=== PATIENT | male | born 1960 | race Caucasian/White ===

== ENCOUNTER 2017-05-12 20:38 | Inpatient (IN) | payer OTHER, SELFPAY ==
[2017-05-12] VITALS (12 sets, daily range): BP systolic 100–160; BP diastolic 66–93; PULSE 67–84; RESP 16–21; TEMP 36.4–36.9; O2SAT 97–100; BMI 31.6
--- NOTE | 2017-05-12 20:41 | NURSING ---
NO OLD EKG'S IN MUSE
--- NOTE | 2017-05-12 20:51 | EKG12_ITS ---
Test Reason : REPEAT Blood Pressure : / mmHG Vent. Rate : 072 BPM Atrial Rate : 072 BPM P-R Int : 178 ms QRS Dur : 082 ms QT Int : 388 ms P-R-T Axes : 030 053 055 degrees QTc Int : 424 ms Normal sinus rhythm with sinus arrhythmia Acute pericarditis Abnormal ECG Confirmed by BRANDON PENA, CLAUDE ([id number]), photography editor BRITTANIE ROMERO ([id number]) on 05/15/2017 1:30:32 PM Referred By: GALI Confirmed By:CLAUDE TAYLOR MD
[2017-05-12] MEDS: Aspirin 81 MG TAB.CHEW 324 MG PO (20:58)
--- NOTE | 2017-05-12 21:04 | NURSING ---
DID A REPEAT EKG BECAUSE THERE WERE SOME NOTICABLE EKG CHANGES. THE DOCTOR CAME IN TO REASSESS THE PT AND CONTACTING THE [employer]MENT OPERATOR.
[2017-05-12 21:06] LABS: Absolute Lymphocyte Count 1.26 X10^3/ul (0.83-4.51); Absolute Neutrophil Count 10.5 X10^3/uL (2.0-7.7); Basophil# 0.02 X10^3/uL; Basophil% 0.2 % (0-1); Eosinophil# 0.03 X10^3/uL; Eosinophils% 0.2 % (0-5); Hematocrit 49.4 % (40-54); Hemoglobin 17.1 g/dl (13.0-16.5); Lymphocyte # 1.26 X10^3/ul (4.0); Lymphocyte % 9.8 % (19-41); Mean Corp Hgb Conc 34.6 g/gl (32-36); Mean Corpuscular Hgb 31.7 pg (27.0-32.0); Mean Corpuscular Volume 91.5 fL (80-94); Monocyte# 1.02 X10^3/uL; Monocyte% 7.9 % (0-10); Neutrophil # 10.48 X10^3/uL (2.7-7.7); Neutrophil % 81.6 % (47-70); POSITIVE COUNT NO; POSITIVE DIFFERENTIAL NO; POSITIVE MORPHOLOGY NO; Platelet Count 288 K/mm3 (150-450); RBC Distribution Width CV 12.3 % (11.6-14.6); RBC Distribution Width SD 41.1 fl (35.1-43.9); White Blood Count 12.9 K/mm3 (4.4-11.0)
--- NOTE | 2017-05-12 21:06 | RAD_ITS ---
STUDY: X-RAY CHEST REASON FOR EXAM: Male, 57 years old. Chest pain TECHNIQUE: Frontal and lateral views of the chest. COMPARISON: None. FINDINGS: EKG lines overlying the chest. The lungs are clear and expanded. There is no demonstrated pleural abnormality. Normal size heart. Normal mediastinum and aleksandar. Normal visualized pulmonary arteries. Normal visualized aortic arch and descending thoracic aorta. Normal visualized thoracic spine. Normal visualized ribs, clavicles, and shoulders. There is no demonstrated abnormality of the visualized soft tissue structures of the upper abdomen. RAD/Chest PA and Lateral IMPRESSION: No acute cardiopulmonary disease. Electronically Signed: Sandeep Hollins DO at 21:56 EDT , Service support ,
[2017-05-12 21:17] LABS: Anion Gap 8 (5-15); BUN 20 mg/dL (7-18); BUN/Creat Ratio 15.7 RATIO (10-20); Chloride 102 mmol/L (98-107); Creatinine, Serum 1.27 mg/dL (0.70-1.30); EST Glomerular Filtration Rate 62 mL/min (>60); Est Glom Filt Rate - Afr Amer 75 mL/min (>60); Glucose 115 mg/dL (74-106); Potassium 3.5 mmol/L (3.5-5.1); Sodium Level 139 mmol/L (136-145)
[2017-05-12] MEDS: Clopidogrel Bisulfate 300 MG Tablet PO (21:38)
[2017-05-12 21:42] LABS: CRP < 2.90 mg/L (0.0-3.0)
[2017-05-12] MEDS: Nitroglycerin Infusion 250 ML 3 MG IV (21:50)
--- NOTE | 2017-05-12 21:54 | PCM.HP.STD ---
Problem List (1) HLD (hyperlipidemia) Status: Chronic Qualifiers: Hyperlipidemia type: unspecified Qualified Code(s): E78.5 - Hyperlipidemia, unspecified (2) ACS (acute coronary syndrome) Status: Acute (3) Obesity (BMI 30.0-34.9) Status: Chronic History of Present Illness Date of Admission: 05/12/17 Chief Complaint: Chest pain The patient is a 57 y/o M w/ PMHx: HLD previously treated but off medications currently who presents to the [facility] ED on 05/12/17 with history of onset chest tightness across the chest with radiation to his R shoulder and toward his shoulder blade with associated dyspnea, diaphoresis noted to have initial onset following a recent work-out on the evening of presentation. He notes he normally works out 2-3x/week and usually walks/runs but on the day of presentation he had been performing a new regimen with squats and stretches he had not performed prior. He noted the discomfort intermittent and given recurrence and not improving he presented to the ED. In the ED work-up included AF, HR 70s, BP 136/88, RR 21, 99% on 2L NC, CBC w/ WBC 12.9, Hgb 17.1, Plts 288 with L shift, BMP w/ BUN/Cr 20/1.27, glucose 115, trop 0.08, CRP <2.90, CXR without acute findings, EKGs with diffuse elevations noted as well as SD depression with no reciprocal changes, repeat EKG secondary to elevations suspected worsened on telemetry with ongoing diffuse however 3rd EKG obtained and was noted to be improved. In the ED Cardiology, Dr. Murcia contacted and patient treated with plavix load, asa, NG drip and heparin drip with noted plan for AM cardiac catheterization and Cardiology evaluation. Following administration of regimen in the ED patient noted being chest pain free. Past Medical History Past Medical History (Chronic Problems): Chronic Problems HLD (hyperlipidemia) (Chronic) Obesity (BMI 30.0-34.9) (Chronic) Allergies No Known Allergies Allergy (Verified 05/12/17 20:39) Home Medications: Ambulatory Orders Medication Instructions Recorded NK [NK] 05/12/17 Surgical History: - - Appendectomy, L inguinal hernia repair. Psychiatric History: No pertinent psych hx Lives: Spouse/ Significant Other Smoking Status: Never smoker Tobacco Use: Non-smoker Alcohol: Occasional Drugs: None - *Family History Maternal History Items: High Cholesterol Paternal History Items: Diabetes, Heart Disease - Father with history of CAD s/p CABG. Review of Systems Constitutional: Reports: Malaise, Fatigue. Denies: Chills, Fever, Weight Change HEENT: Denies: Head Aches, Sinus Congestion, Sinus Drainage Cardiovascular: Reports: Chest Pain, Chest Tightness. Denies: Heaviness, Light Headedness, Orthopnea, Palpitations, Syncope Respiratory: Reports: Shortness of Breath, Shortness of breath at rest, Shortness of breath upon exertion. Denies: Cough, Sputum production Gastrointestinal: Denies: Abdominal Pain, Nausea, Vomiting Genitourinary: Denies: Dysuria Musculoskeletal: Reports: Shoulder Pain. Denies: Joint Pain, Joint Tenderness Skin: Denies: Rash, Wounds Neurological: Denies: Numbness, Tingling, Focal weakness Psychiatric: Denies: Anxiety, Depression, Homicidal Ideations, Suicidal Ideations Hematologic/ Lymphatic: Denies: Easy Bruising, Easy Bleeding VTE Information - Inpt Only VTE Present on Admission: No VTE Mechan Device Prophylaxis: SCD's VTE Pharm Prophylaxis ordered?: Yes Patient Problems: Active and Suspected Problems ACS (acute coronary syndrome) (Acute) Subjective: Seated upright in the ED bed, NAD, notes current chest pain free, mild headache, on NG, heparin drip currently. Objective: Physical Examination: General: awake, alert, oriented x 3 and cooperative, seated upright in the ED bed in no apparent distress. Skin: normal color, turgor, no icterus, cyanosis. HEENT: AT/NC, EOMI, PERRLA, MMM, no carotid bruits or JVD noted. Lungs: CTA bilaterally, moderate effort, mild decrease BL bases, no rales, ronchi or wheezing. Heart: Regular rate and rhythm; no gallop, rub audible. Abdomen: soft, obese, NTTP, ND, normal BS, no HSM. Extremities: no cyanosis, clubbing, or edema. Neurological: patient awake, alert, oriented x 3; cognitive function intact; pupils equally reactive to light and accomodation; cranial nerves II-XII grossly normal, moving all 4 extremities, no focal deficits, strength preserved. Psychiatric: affect appears normal, no acute evidence of depressive or anxiety feelings. - Physical Exam Vital Signs Temp Pulse Resp BP Pulse Ox 97.5 F L 84 16 104/67 100 05/12/17 20:40 05/12/17 21:50 05/12/17 21:06 05/12/17 21:50 05/12/17 21:06 Oxygen Flow Rate (L/min) 2 Oxygen Delivery Method Nasal Cannula Weight: 214 lb 8.156 oz Body Mass Index (BMI) 31.6 Laboratory Tests Past 24 Hrs 05/12/17 05/12/17 05/12/17 20:45 20:45 20:45 WBC 12.9 H RBC 5.40 Hgb 17.1 H Hct 49.4 MCV 91.5 MCH 31.7 MCHC 34.6 RDW 12.3 RDW Differential 41.1 Plt Count 288 MPV 9.0 Immature Gran % (Auto) 0.300 Neut % (Auto) 81.6 H Lymph % (Auto) 9.8 L Sterling % (Auto) 7.9 Eos % (Auto) 0.2 Baso % (Auto) 0.2 Absolute Neuts (auto) 10.5 H Absolute Lymphs (auto) 1.26 Total Counted Not Reportable ESR Pending PT INR APTT Sodium 139 Potassium 3.5 Chloride 102 Carbon Dioxide 29.0 Anion Gap 8 BUN 20 H Creatinine 1.27 Estim Creat Clear Calc 63.40 Est GFR (MDRD) Af Amer 75 Est GFR (MDRD) Non-Af 62 BUN/Creatinine Ratio 15.7 Glucose 115 H Calcium 9.0 Troponin I 0.08 H C-React Prot Ext Range 05/12/17 05/12/17 20:45 20:45 WBC RBC Hgb Hct MCV MCH MCHC RDW RDW Differential Plt Count MPV Immature Gran % (Auto) Neut % (Auto) Lymph % (Auto) Sterling % (Auto) Eos % (Auto) Baso % (Auto) Absolute Neuts (auto) Absolute Lymphs (auto) Total Counted ESR PT Pending INR Pending APTT Pending Sodium Potassium Chloride Carbon Dioxide Anion Gap BUN Creatinine Estim Creat Clear Calc Est GFR (MDRD) Af Amer Est GFR (MDRD) Non-Af BUN/Creatinine Ratio Glucose Calcium Troponin I C-React Prot Ext Range < 2.90 Assessment/Plan Active and Suspected Problems ACS (acute coronary syndrome) (Acute) The patient is a 57 y/o M w/ PMHx: HLD previously treated but off medications currently who presents to the [facility] ED on 05/12/17 with history of onset chest tightness across the chest with radiation to his R shoulder and toward his shoulder blade with associated dyspnea, diaphoresis noted to have initial onset following a recent work-out on the evening of presentation. (1) Chest Pain, ACS, Elevated Cardiac Enzyme: In the ED work-up included AF, HR 70s, BP 136/88, RR 21, 99% on 2L NC, CBC w/ WBC 12.9, Hgb 17.1, Plts 288 with L shift, BMP w/ BUN/Cr 20/1.27, glucose 115, trop 0.08, CRP <2.90, CXR without acute findings, EKGs with diffuse elevations noted as well as SD depression with no reciprocal changes, repeat EKG secondary to elevations suspected worsened on telemetry with ongoing diffuse however 3rd EKG obtained and was noted to be improved. Will admit to the ICU, maintain on a monitored bed, continue serial cardiac enzymes and EKGs. Obtain magnesium level upon admission. Continue Heparin drip. Continue medical management w/ asa, statin w/ AM FLP. Continued NG administration. Cardiology consulted, plan for cardiac catheterization. ECHO ordered. Maintain NPO after midnight. ASA, morphine. (2) Hyperlipidemia: Start high dose statin regimen. AM FLP. (3) Obesity: Weight loss and lifestyle changes encouraged. (4) DVT Prophylaxis: SCDs, heparin drip. Code Visit Inpatient E&M: 71623 Init Hosp L3
[2017-05-12 21:58] LABS: Erythrocyte Sedimentation Rate 9 mm/hr (0-20)
[2017-05-12 22:02] LABS: International Normalized Ratio 0.9; Prothrombin Time (Protime)PT. 12.6 SECONDS (11.7-14.9)
[2017-05-12 22:03] LABS: Partial Thromboplast Time 27.7 Seconds (24.1-36.2)
--- NOTE | 2017-05-12 22:03 | EKG12_ITS ---
Test Reason : REPEAT Blood Pressure : / mmHG Vent. Rate : 071 BPM Atrial Rate : 071 BPM P-R Int : 178 ms QRS Dur : 088 ms QT Int : 390 ms P-R-T Axes : 023 055 047 degrees QTc Int : 423 ms Normal sinus rhythm Normal ECG Pericarditis Confirmed by BRANDON PENA, CLAUDE ([id number]), development editor BRITTANIE ROMERO ([id number]) on 05/15/2017 1:31:07 PM Referred By: GALI Confirmed By:CLAUDE TAYLOR MD
--- NOTE | 2017-05-12 22:04 | EKG12_ITS ---
Test Reason : CP Blood Pressure : / mmHG Vent. Rate : 075 BPM Atrial Rate : 075 BPM P-R Int : 164 ms QRS Dur : 080 ms QT Int : 376 ms P-R-T Axes : 050 059 052 degrees QTc Int : 419 ms Normal sinus rhythm Nonspecific ST abnormality Abnormal ECG Confirmed by BRANDON PENA, CLAUDE ([id number]), senior technical editor BRITTANIE ROMERO ([id number]) on 05/15/2017 1:31:28 PM Referred By: GALI Confirmed By:CLAUDE TAYLOR MD
[2017-05-12] MEDS: HEPARIN/D5w 25,000 UNITS 25,000 UNITS/250 ML IV.SOLN. 14 UNITS IV (22:23)
--- NOTE | 2017-05-12 22:30 | ED.DCSUM_ITS ---
- ER Visit Summary Date of Service: 05/12/17 Chief Complaint: Chest pain History of Present Illness: The patient is a 57 M presenting for evaluation secondary chest pain. Patient states that he was working out this evening and upon completion of his workout he started to did not develop chest pain. Patient states that it was substernal and a tightness that radiated somewhat to his right shoulder. Was associated with some diaphoresis. Patient states that there were no exacerbating relieving factors and this was any intermittent pain. Patient states he has never had any prior similar episodes. Denies any cardiac history, does have a history of hyperlipidemia and a premature family history of cardiac disease he has never had a stress test. Patient is a non- smoker. He denies any dissection or aneurysm risk factors and denies any PE risk factors. Review of systems otherwise negative. Physical Examination: Vital signs are within normal limits, patient is afebrile. Upper extremity blood pressures are bilaterally symmetric General: Patient is well-nourished well-developed and in no acute distress. Head: Normocephalic, atraumatic Eyes: Pupils equal round and reactive bilaterally, extra occular motion intact bialterally ENT: Moist mucous membranes Neck: Supple, no lymphadenopathy, no JVD, no meningismus CVS: Heart regular rate and rhythm, 2 out of 6 systolic murmur noted, rubs or gallops, radial pulses 2+ bilaterally Resp: Respirations nondistressed, lung sounds clear bilaterally Abdomen: Soft, nontender, nondistended, no palpable masses, normal bowel sounds Back: Nontender Extremities: Nontender, atraumatic, active full range of motion, no peripheral edema, 2+ DP and PT pulses, 2+ radial pulses Skin: warm, no rashes, no petechia Neuro: Alert and oriented x 4, CN 2-12 intact, no lateralizing neurological defecits Psyc: Normal affect Test Results: Initial EKG shows J-point elevation with ST elevation in lead V4 as well as lead II without any reciprocal changes. EKG #[address] elevation not anatomically distributed without any reciprocal changes. EKG #3 shows improvement of this ST elevation, but continued elevation diffusely without any reciprocal changes. CBC chemistry unremarkable. Troponin found to be elevated to 0.08. Chest x-ray shows normal mediastinum, no evidence of acute cardiopulmonary process Emergency Department Course and Treatment: Patient presented for evaluation secondary to chest pain. Immediately on arrival patient's EKG looked somewhat abnormal so we did contact Dr. Murcia with cardiology. Patient's EKG seems more consistent with pericarditis, but his history sounds more consistent with possible acute coronary syndrome. Patient was chest pain-free in the emergency department and was started on a heparin nitroglycerin drip and was given aspirin and Plavix. I did consider the possibility of dissection in this patient, but he is currently pain-free and has symmetric blood pressures as well as pulses and a normal mediastinum. Patient will be admitted to ICU for further observation and cardiac catheterization tomorrow. Disposition: Admission Impression: 1. Acute coronary syndrome Critical care time 45 minutes This note was generated with [employer] dictation software. It may contain incorrect words, spelling, and punctuation that were not noted in review of the chart prior to signing ED Disposition - Plan for ED Patient: Chief Complaint: Chest Pain
[2017-05-13] VITALS (57 sets, daily range): BP systolic 101–136; BP diastolic 70–91; PULSE 54–103; RESP 13–21; TEMP 36.9–37.3; O2SAT 96–100; BMI 31.3
[2017-05-13] MEDS: Famotidine 20 MG Tablet PO ×3 (00:48→21:06)
[2017-05-13] MEDS: Atorvastatin Calcium 80 MG Tablet PO ×2 (00:48→21:07)
[2017-05-13] MEDS: 0.9% NaCl Peripheral Flush Adult/Peds IV ×7 (00:49→21:10)
[2017-05-13] MEDS: 0.9% Normal Saline 1,000 ML 100 ML IV (01:10)
[2017-05-13 02:22] LABS: Bacteria 0 SEEN /hpf (None Seen); Mucous, Urine 0 SEEN /hpf (<or=2+); White Blood Cells 0 SEEN /hpf (0-5)
[2017-05-13 02:27] LABS: Color, Urine Yellow (Yellow); Glucose, Dipstick Normal (Normal); Ketone-Dipstick 15 mg/dl (Negative); Leukocyte Esterase-Dipstick Negative /ul (Negative); Nitrite-Dipstick Negative (Negative); Occult Blood-Urine 10 /ul (Negative); Protein-Dipstick Negative (Negative); Specific Gravity, Urine 1.015 (1.002-1.030); Urine Bilirubin Dipstick Negative (Negative); Urine Clarity Sl. Cloudy (Clear); Urine Urobilinogen Normal (Normal)
[2017-05-13] MEDS: Metoprolol Tartrate 5 MG/5 ML Vial IV (02:40)
[2017-05-13 02:43] LABS: Red Blood Cells-Urine 0-5 SEEN /hpf (0-5); Squamous Epithelial Cells - UA 0-5 SEEN /hpf (0-5)
[2017-05-13 02:44] LABS: Amorphous Sediment 1+ URATE; Fine Granular Cast- Urine 0-5 SEEN /lpf (0-5)
[2017-05-13 03:11] LABS: M R Staph aureus DNA By PCR Negative (Negative); Probe Check PASS; Specimen Processing Control PASS
[2017-05-13] MEDS: 0.9% NaCl IVPB Med Flush (250 mL) 15 ML IV (03:24)
[2017-05-13 04:53] LABS: Hematocrit 44.9 % (40-54); Hemoglobin 15.5 g/dl (13.0-16.5); Mean Corp Hgb Conc 34.5 g/gl (32-36); Mean Corpuscular Hgb 31.6 pg (27.0-32.0); Mean Corpuscular Volume 91.4 fL (80-94); Mean Platelet Vol. 8.8 fl (6.2-12.0); Platelet Count 261 K/mm3 (150-450); RBC Distribution Width CV 12.4 % (11.6-14.6); RBC Distribution Width SD 40.8 fl (35.1-43.9); Red Blood Count 4.91 M/mm3 (4.6-6.2); White Blood Count 8.7 K/mm3 (4.4-11.0)
[2017-05-13 04:54] LABS: Scan Indicated on CBC? Y/N NO
[2017-05-13 05:08] LABS: Prothrombin Time (Protime)PT. 13.4 SECONDS (11.7-14.9)
[2017-05-13 05:10] LABS: Anion Gap 8 (5-15); BUN 15 mg/dL (7-18); BUN/Creat Ratio 15.3 RATIO (10-20); Calcium,Total 8.4 mg/dL (8.5-10.1); Chloride 105 mmol/L (98-107); Cholesterol 178 mg/dL (200); Creatinine, Serum 0.98 mg/dL (0.70-1.30); EST Glomerular Filtration Rate 84 mL/min (>60); Est Glom Filt Rate - Afr Amer 101 mL/min (>60); Estimated Creatinine Clearance 82.16 ml/min; Glucose 122 mg/dL (74-106); High Density Lipoprotein 50 mg/dL; Potassium 3.5 mmol/L (3.5-5.1); Sodium Level 140 mmol/L (136-145); Triglycerides 96 mg/dL; Very Low Density Lipoprotein 19 mg/dL (5-40)
[2017-05-13 05:11] LABS: Partial Thromboplast Time 107.4 Seconds (24.1-36.2)
--- NOTE | 2017-05-13 05:55 | EKG12_ITS ---
Test Reason : VTACH Blood Pressure : / mmHG Vent. Rate : 096 BPM Atrial Rate : 117 BPM P-R Int : 000 ms QRS Dur : 140 ms QT Int : 406 ms P-R-T Axes : 000 262 067 degrees QTc Int : 512 ms Suspect arm lead reversal, interpretation assumes no reversal Atrial fibrillation Non-specific intra-ventricular conduction block Inferior infarct , age undetermined Anterolateral infarct , age undetermined Abnormal ECG Confirmed by BRANDON PENA, CLAUDE ([id number]), legal editor BRITTANIE ROMERO ([id number]) on 05/15/2017 1:55:53 PM Referred By: LEVI Confirmed By:CLAUDE TAYLOR MD
--- NOTE | 2017-05-13 05:55 | ECHOD_ITS ---
Reason For Study: CHEST PAIN Procedure This was a 2D Doppler, Color Flow transthoracic echocardiogram. Exam performed portable in ICU/CCU. Left Ventricle Normal size and thickness. The estimated ejection fraction is 65 %. Normal diastology for age. Anterior [place] : Mildly hypokinetic. Right Ventricle Normal size and thickness. Normal systolic function. Atria Normal left atrium. Normal right atrium. Normal atrial septum. Mitral Valve The mitral valve is structurally normal. No prolapse or stenosis seen. Tricuspid Valve Normal tricuspid valve. Trivial tricuspid valve insufficiency. Right ventricular systolic pressure estimated to be 35 mmHg. Aortic Valve Trisinus/trileaflet aortic valve. Normal aortic valve. Pulmonic Valve Normal pulmonic valve. Great Vessels Normal aortic root. Normal arch. Normal inferior vena cava. Inferior vena cava collapse with sniff. Pericardium/Pleural No pericardial effusion. MMode/2D Measurements & Calculations LVIDd: 4.3 cm IVSd: 0.87 cm Ao root diam: 3.5 cm LVIDs: 2.8 cm LVPWd: 0.81 cm LA dimension: 4.2 cm RVDd: 3.7 cm FS: 35.2 % LAV(MOD-bp): 39.7 ml EDV(MOD-sp4): 119.7 ml EDV(MOD-sp2): 93.5 ml LAV(MOD-bp) Indexed: 18.8 ml/m2 ESV(MOD-sp4): 45.9 ml EF(MOD-sp2): 69.5 % LAV(MOD-sp2): 49.3 ml EF(MOD-sp4): 61.6 % LAV(MOD-sp4): 31.0 ml SV(MOD-sp4): 73.8 ml SV(MOD-sp2): 65.0 ml LA A4 area: 13.9 cm2 RA A4 area: 14.8 cm2 Doppler Measurements & Calculations MV E max juancarlos: 82.3 cm/sec Ao V2 max: 152.7 cm/sec LV V1 max: 105.4 cm/sec MV A max juancarlos: 63.9 cm/sec Ao max P.3 mmHg LV V1 max P.4 mmHg MV E/A: 1.3 PA V2 max: 159.9 cm/sec TR max juancarlos: 273.8 cm/sec TR max P.0 mmHg Interpretation Summary The estimated ejection fraction is 65 %. Normal diastology for age. Anterior Taberg : Mildly hypokinetic Trivial tricuspid valve insufficiency. Right ventricular systolic pressure estimated to be 35 mmHg. There is no comparison study available. Ordering Physician: Chioma Palma Referring Physician: WIL SALDAÑA Performed By: Concha Sabillon, STEVE, RVT
[2017-05-13] MEDS: Clopidogrel Bisulfate 75 MG Tablet PO (06:08)
[2017-05-13] MEDS: DiphenhydrAMINE 25 MG Capsule 50 MG PO (06:08)
[2017-05-13] MEDS: Aspirin E.C. 81 MG Tablet PO (06:09)
[2017-05-13 08:15] LABS: ACT Activated Clotting Time 125 sec (74-137)
[2017-05-13 08:15] LABS: ACT Activated Clotting Time 202 sec (74-137)
--- NOTE | 2017-05-13 08:15 | EKG12_ITS ---
Test Reason : EKG CHANGE Blood Pressure : / mmHG Vent. Rate : 063 BPM Atrial Rate : 063 BPM P-R Int : 192 ms QRS Dur : 082 ms QT Int : 408 ms P-R-T Axes : 025 056 052 degrees QTc Int : 417 ms Normal sinus rhythm Normal ECG No previous ECGs available Confirmed by BRANDON PENA, CLAUDE ([id number]), supervising editor news reel BRITTANIE ROMERO ([id number]) on 05/15/2017 1:55:28 PM Referred By: RANDEE Confirmed By:CLAUDE TAYLOR MD
--- NOTE | 2017-05-13 08:28 | PCM.CONS.C ---
Problem List (1) Non-STEMI (non-ST elevated myocardial infarction) Status: Acute (2) Hypertension Status: Chronic (3) Ventricular arrhythmia Status: Acute (4) HLD (hyperlipidemia) Status: Chronic Qualifiers: Hyperlipidemia type: unspecified Qualified Code(s): E78.5 - Hyperlipidemia, unspecified (5) ACS (acute coronary syndrome) Status: Acute Reason for Consult Date of Consultation: 05/13/17 Reason for Consultation: Unstable angina, coronary artery disease, non-STEMI, acute coronary syndrome, ventricular arrhythmias, hypertension, hypercholesterolemia History of Present Illness: The patient is a 57 year old M, nondiabetic, non-smoker, moderately obese, with a history of hypercholesterolemia, on no medications, who actively works out at [employer] locally, was doing well up until around 830 last evening. The patient completed an exercise protocol at [facility], and after he stopped on the treadmill he developed substernal chest heaviness and tightness. This precipitated a visit to the [facility] ER where an EKG was done which showed normal sinus rhythm with subtle global ST segment elevation but did not reach criteria for STEMI. Patient was treated medically and his EKG changes and chest pain completely resolved. Patient was admitted to the ICU last evening, and developed asymptomatic wide-complex tachycardia last evening, heme and apically stable, which responded well to an amiodarone drip. Patient was having no symptoms at that time. His peak troponin thus far was 4.10. Patient underwent urgent left her catheterization this morning which demonstrated a critical lesion in his proximal LAD and underwent successful export assisted angioplasty and stenting with a 3.0X 20 Promus Synergy stent. Patient's left circumflex and RCA had minimal nonobstructive disease, and his LV function is mildly depressed with anterior apical hypokinesis with an overall ejection fraction of 5 0%. Prior to this the patient had no symptoms whatsoever over the last several weeks. He denies any recent fevers, chills, or flulike illnesses. He does have a family history of heart disease in his elderly mother. He also reports that he has a history of hypercholesterolemia but is on no medications. [] Past Medical History Allergies/Adverse Reactions: Allergies No Known Allergies Allergy (Verified 05/12/17 20:39) Home Medications: Ambulatory Orders Medication Instructions Recorded NK [NK] 05/12/17 Past Medical History (Chronic Problems): Chronic Problems HLD (hyperlipidemia) (Chronic) Obesity (BMI 30.0-34.9) (Chronic) Hypertension (Chronic) Surgical History: - - Appendectomy, L inguinal hernia repair. Psychiatric History: No pertinent psych hx - *Family History Maternal History Items: High Cholesterol Paternal History Items: Diabetes, Heart Disease - Father with history of CAD s/p CABG. Lives: Spouse/ Significant Other Smoking Status: Never smoker Tobacco Use: Non-smoker Alcohol: Occasional Drugs: None Review of Systems - Review of Systems General: Denies: Fever, Night Sweats, Fatigue Cardiovascular: Reports: Chest Discomfort at Rest. Denies: Chest Discomfort, Shortness of Breath, Orthopnea, PND, Peripheral Edema, Palpitations, Lightheadedness, Dizziness, Near Syncope, Syncope Respiratory: Denies: Cough, Sputum Production, Hemoptysis Gastrointestinal: Denies: Hematemesis, Hematochezia, Melena Genitourinary: Denies: Dysuria, Hematuria Skin: Denies: Rash Subjectve: Patient laying in bed, no acute distress. Objective: Vital Signs Temp Pulse Resp BP Pulse Ox 98.7 F 68 18 119/79 98 05/13/17 04:00 05/13/17 08:00 05/13/17 06:00 05/13/17 06:00 05/13/17 06:00 Oxygen Flow Rate (L/min) 2 Oxygen Delivery Method Room Air Weight: 212 lb 8.41 oz Body Mass Index (BMI) 31.3 Intake and Output for Last 24 Hours 05/11/17 05/12/17 05/13/17 23:59 23:59 23:59 Intake Total 1012.1 / 1012.1 Output Total 1200 / 1200 Balance -187.9 / -187.9 General: Awake, Alert, Oriented x 3 HEENT: PERRL, EOMI, Sclera Non Icteric Neck: Supple, Good ROM, No Lymph Node Enlargement Lungs: Clear to auscultation Cardiovascular: Regular Rhythm, Normal S1, Normal S2, No Murmurs, No Rubs, No Gallops Vascular: No Carotid Bruits, Normal Femoral Pulses, Normal Radial Pulses, Normal Dorsalis Pedal Pulse, Normal Posterior Tibial Pulses Abdomen: Bowel Sounds Present, Soft, Non Tender, No HSM, No Organomegaly Extremities: No Cyanosis, No Clubbing, No edema Neurological: No Focal Motor or Sensory Deficit 05/13/17 00:35: Magnesium 2.0 05/13/17 00:35: Troponin I 1.17 H* 05/13/17 02:10: Urine Color Yellow, Urine Clarity Sl. Cloudy, Urine pH 5.0, Ur Specific [place] 1.015, Urine Protein Negative, Urine Glucose (UA) Normal, Urine Ketones 15 H, Urine Occult Blood 10 H, Urine Nitrite Negative, Urine Bilirubin Negative, Urine Urobilinogen Normal, Ur Leukocyte Esterase Negative, Urine RBC 0-5 SEEN, Urine WBC 0 SEEN 05/13/17 03:00: Troponin I 4.41 H* 05/13/17 04:45: WBC 8.7, RBC 4.91, Hgb 15.5, Hct 44.9, MCV 91.4, MCH 31.6, MCHC 34.5, RDW 12.4, RDW Differential 40.8, Plt Count 261, MPV 8.8 05/13/17 04:45: Sodium 140, Potassium 3.5, Chloride 105, Carbon Dioxide 27.0, Anion Gap 8, BUN 15, Creatinine 0.98, Est GFR (MDRD) Af Amer 101, Est GFR (MDRD) Non-Af 84, BUN/Creatinine Ratio 15.3, Glucose 122 H, Calcium 8.4 L, Triglycerides 96, Cholesterol 178, LDL Cholesterol 109, VLDL Cholesterol 19, HDL Cholesterol 50 05/13/17 04:45: PT 13.4, INR 1.0, APTT 107.4 H* Rhythm: EKG: ECHO: Pending Stress Test: Cardiac Cath: 75% proximal LAD stenosis corrected with 3.0X 20 Promus Synergy stent. Nonobstructive left circumflex and RCA. PCI: CT Surgery: Holter monitor: EPS: PPM: CXR: Chest CT Scan: Assessment/Plan 1. Acute coronary syndrome: The patient presents with unstable angina, abnormal EKG, wide-complex tachycardia, abnormal troponin of 4.10, with a newly discovered critical lesion in the proximal LAD with successful angioplasty and drug-eluting stenting receiving a 3.0X 20 Promus Synergy stent with an excellent result. At this point the patient will continue baby aspirin for life, Plavix at least for 1 year perhaps 2, and aggressive secondary risk factor modifications with beta-brook, ROBERT inhibitor, and statin. We will obtain a 2D echo with Doppler, fasting lipid profile, and he will be returned to the ICU for manual sheath removal later today. Patient does not require any additional stress testing or PCI at this time. 2. Hyperlipidemia: We will obtain a fasting lipid profile. Continue Lipitor 80 mg p.o. nightly. Repeat lipid profile in 6 weeks time. 3. LV dysfunction: The patient has mild LV dysfunction which will hopefully improve with a combination of angioplasty, time, antihypertensive, and cardiac rehab. We will repeat his echocardiogram at the conclusion of cardiac rehab. 4. Thank you very much for the opportunity to put dissipate in the cardiac care of your patient. Consultation time took place between 7 AM and 8:15 AM. Code Visit Inpatient E&M: 46556 Init Hosp L2
--- NOTE | 2017-05-13 08:37 | CON.PCM_ITS ---
Problem List (1) Non-STEMI (non-ST elevated myocardial infarction) Status: Acute (2) Hypertension Status: Chronic (3) Ventricular arrhythmia Status: Acute (4) HLD (hyperlipidemia) Status: Chronic Qualifiers: Hyperlipidemia type: unspecified Qualified Code(s): E78.5 - Hyperlipidemia , unspecified (5) ACS (acute coronary syndrome) Status: Acute Reason for Consult Date of Consultation: 05/13/17 Reason for Consultation: Unstable angina, coronary artery disease, non-STEMI, acute coronary syndrome, ventricular arrhythmias, hypertension, hypercholesterolemia History of Present Illness: The patient is a 57 year old M, nondiabetic, non-smoker, moderately obese, with a history of hypercholesterolemia, on no medications, who actively works out at [employer] locally, was doing well up until around 830 last evening. The patient completed an exercise protocol at [facility], and after he stopped on the treadmill he developed substernal chest heaviness and tightness. This precipitated a visit to the [facility] ER where an EKG was done which showed normal sinus rhythm with subtle global ST segment elevation but did not reach criteria for STEMI. Patient was treated medically and his EKG changes and chest pain completely resolved. Patient was admitted to the ICU last evening, and developed asymptomatic wide-complex tachycardia last evening, heme and apically stable, which responded well to an amiodarone drip. Patient was having no symptoms at that time. His peak troponin thus far was 4.10. Patient underwent urgent left her catheterization this morning which demonstrated a critical lesion in his proximal LAD and underwent successful export assisted angioplasty and stenting with a 3.0X 20 Promus Synergy stent. Patient's left circumflex and RCA had minimal nonobstructive disease, and his LV function is mildly depressed with anterior apical hypokinesis with an overall ejection fraction of 5 0%. Prior to this the patient had no symptoms whatsoever over the last several weeks. He denies any recent fevers, chills, or flulike illnesses. He does have a family history of heart disease in his elderly mother. He also reports that he has a history of hypercholesterolemia but is on no medications. [] Past Medical History Allergies/Adverse Reactions: Allergies No Known Allergies Allergy (Verified 05/12/17 20:39) Home Medications: Ambulatory Orders Medication Instructions Recorded NK [NK] 05/12/17 Past Medical History (Chronic Problems): Chronic Problems HLD (hyperlipidemia) (Chronic) Obesity (BMI 30.0-34.9) (Chronic) Hypertension (Chronic) Surgical History: - - Appendectomy, L inguinal hernia repair. Psychiatric History: No pertinent psych hx - *Family History Maternal History Items: High Cholesterol Paternal History Items: Diabetes, Heart Disease - Father with history of CAD s/p CABG. Lives: Spouse/ Significant Other Smoking Status: Never smoker Tobacco Use: Non-smoker Alcohol: Occasional Drugs: None Review of Systems - Review of Systems General: Denies: Fever, Night Sweats, Fatigue Cardiovascular: Reports: Chest Discomfort at Rest. Denies: Chest Discomfort, Shortness of Breath, Orthopnea, PND, Peripheral Edema, Palpitations, Lightheadedness, Dizziness, Near Syncope, Syncope Respiratory: Denies: Cough, Sputum Production, Hemoptysis Gastrointestinal: Denies: Hematemesis, Hematochezia, Melena Genitourinary: Denies: Dysuria, Hematuria Skin: Denies: Rash Subjectve: Patient laying in bed, no acute distress. Objective: Vital Signs Temp Pulse Resp BP Pulse Ox 98.7 F 68 18 119/79 98 05/13/17 04:00 05/13/17 08:00 05/13/17 06:00 05/13/17 06:00 05/13/17 06:00 Oxygen Flow Rate (L/min) 2 Oxygen Delivery Method Room Air Weight: 212 lb 8.41 oz Body Mass Index (BMI) 31.3 Intake and Output for Last 24 Hours 05/11/17 05/12/17 05/13/17 23:59 23:59 23:59 Intake Total 1012.1 / 1012.1 Output Total 1200 / 1200 Balance -187.9 / -187.9 General: Awake, Alert, Oriented x 3 HEENT: PERRL, EOMI, Sclera Non Icteric Neck: Supple, Good ROM, No Lymph Node Enlargement Lungs: Clear to auscultation Cardiovascular: Regular Rhythm, Normal S1, Normal S2, No Murmurs, No Rubs, No Gallops Vascular: No Carotid Bruits, Normal Femoral Pulses, Normal Radial Pulses, Normal Dorsalis Pedal Pulse, Normal Posterior Tibial Pulses Abdomen: Bowel Sounds Present, Soft, Non Tender, No HSM, No Organomegaly Extremities: No Cyanosis, No Clubbing, No edema Neurological: No Focal Motor or Sensory Deficit 05/13/17 00:35: Magnesium 2.0 05/13/17 00:35: Troponin I 1.17 H* 05/13/17 02:10: Urine Color Yellow, Urine Clarity Sl. Cloudy, Urine pH 5.0, Ur Specific [place] 1.015, Urine Protein Negative, Urine Glucose (UA) Normal, Urine Ketones 15 H, Urine Occult Blood 10 H, Urine Nitrite Negative, Urine Bilirubin Negative, Urine Urobilinogen Normal, Ur Leukocyte Esterase Negative, Urine RBC 0-5 SEEN, Urine WBC 0 SEEN 05/13/17 03:00: Troponin I 4.41 H* 05/13/17 04:45: WBC 8.7, RBC 4.91, Hgb 15.5, Hct 44.9, MCV 91.4, MCH 31.6, MCHC 34.5, RDW 12.4, RDW Differential 40.8, Plt Count 261, MPV 8.8 05/13/17 04:45: Sodium 140, Potassium 3.5, Chloride 105, Carbon Dioxide 27.0, Anion Gap 8, BUN 15, Creatinine 0.98, Est GFR (MDRD) Af Amer 101, Est GFR (MDRD ) Non-Af 84, BUN/Creatinine Ratio 15.3, Glucose 122 H, Calcium 8.4 L, Triglycerides 96, Cholesterol 178, LDL Cholesterol 109, VLDL Cholesterol 19, HDL Cholesterol 50 05/13/17 04:45: PT 13.4, INR 1.0, APTT 107.4 H* Rhythm: EKG: ECHO: Pending Stress Test: Cardiac Cath: 75% proximal LAD stenosis corrected with 3.0X 20 Promus Synergy stent. Nonobstructive left circumflex and RCA. PCI: CT Surgery: Holter monitor: EPS: PPM: CXR: Chest CT Scan: Assessment/Plan 1. Acute coronary syndrome: The patient presents with unstable angina, abnormal EKG, wide-complex tachycardia, abnormal troponin of 4.10, with a newly discovered critical lesion in the proximal LAD with successful angioplasty and drug-eluting stenting receiving a 3.0X 20 Promus Synergy stent with an excellent result. At this point the patient will continue baby aspirin for life, Plavix at least for 1 year perhaps 2, and aggressive secondary risk factor modifications with beta-brook, ROBERT inhibitor, and statin. We will obtain a 2D echo with Doppler , fasting lipid profile, and he will be returned to the ICU for manual sheath removal later today. Patient does not require any additional stress testing or PCI at this time. 2. Hyperlipidemia: We will obtain a fasting lipid profile. Continue Lipitor 80 mg p.o. nightly. Repeat lipid profile in 6 weeks time. 3. LV dysfunction: The patient has mild LV dysfunction which will hopefully improve with a combination of angioplasty, time, antihypertensive, and cardiac rehab. We will repeat his echocardiogram at the conclusion of cardiac rehab. 4. Thank you very much for the opportunity to put dissipate in the cardiac care of your patient. Consultation time took place between 7 AM and 8:15 AM. Code Visit Inpatient E&M: 68880 Init Hosp L2
--- NOTE | 2017-05-13 08:37 | EKG12_ITS ---
Test Reason : AM EKG Blood Pressure : / mmHG Vent. Rate : 059 BPM Atrial Rate : 059 BPM P-R Int : 186 ms QRS Dur : 084 ms QT Int : 450 ms P-R-T Axes : 021 060 059 degrees QTc Int : [address] & T wave abnormality, consider anterior ischemia Abnormal ECG When compared with ECG of 14-MAY-2017 05:12, MANUAL COMPARISON REQUIRED, DATA IS UNCONFIRMED Confirmed by HAYDEE JEFF ([id number]), loan expeditor BRITTANIE ROMERO ([id number]) on 05/18/2017 3:29:06 PM Referred By: GENO Confirmed By:HAYDEE JEFF
[2017-05-13] MEDS: 0.9% Normal Saline 1,000 ML 150 ML IV (08:47)
[2017-05-13 08:49] LABS: Hemoglobin 15.2 g/dl (13.0-16.5); Mean Corp Hgb Conc 33.8 g/gl (32-36); Mean Corpuscular Hgb 31.2 pg (27.0-32.0); Mean Corpuscular Volume 92.4 fL (80-94); Mean Platelet Vol. 8.9 fl (6.2-12.0); Platelet Count 246 K/mm3 (150-450); RBC Distribution Width CV 12.5 % (11.6-14.6); RBC Distribution Width SD 41.6 fl (35.1-43.9); Red Blood Count 4.87 M/mm3 (4.6-6.2); White Blood Count 8.6 K/mm3 (4.4-11.0)
[2017-05-13 08:50] LABS: Scan Indicated on CBC? Y/N NO
--- NOTE | 2017-05-13 08:58 | PCM.PN.HOSP ---
Patient Problems: Active and Suspected Problems ACS (acute coronary syndrome) (Acute) Non-STEMI (non-ST elevated myocardial infarction) (Acute) Ventricular arrhythmia (Acute) Subjective: The patient was admitted last night for non-STEMI with V. tach. Patient denies any previous cardiac history or [place]. He has history of dyslipidemia. Patient developed substernal chest heaviness and tightness after treadmill exercise. Patient was later on admitted in ICU and developed wide-complex tachycardia and was started on amiodarone drip. Troponins are elevated. In the morning today he had cardiac cath and he had a critical lesion in proximal LAD for which he had PCI and ULYSSES. Other arteries left circumflex and RCA shows minimal nonobstructive disease. LV function mildly depressed with anterior apical hypokinesis EF 50%. Vitals/I&O's: Vital Signs Temp Pulse Resp BP Pulse Ox 98.7 F 68 18 119/79 97 05/13/17 04:00 05/13/17 08:00 05/13/17 06:00 05/13/17 06:00 05/13/17 08:54 Oxygen Flow Rate (L/min) 2 Oxygen Delivery Method Room Air Weight: 212 lb 8.41 oz Body Mass Index (BMI) 31.3 Intake and Output for Last 24 Hours 05/11/17 05/12/17 05/13/17 23:59 23:59 23:59 Intake Total 1012.1 / 1012.1 Output Total 1200 / 1200 Balance -187.9 / -187.9 General: Alert, Oriented x3, Cooperative HEENT: Atraumatic, PERRLA, EOMI, Normocephalic Neck: Supple, No JVD, Negative Carotid Bruits Lungs: Clear to auscultation, No rhonchi, No wheeze, No rales, Diminished Cardiovascular: Regular rate, Regular Rhythm, Normal S1, Normal S2, No murmurs, - - Normal sinus rhythm on monitor. On amiodarone drip. Abdomen: Bowel Sounds Present, Soft, Non Tender Extremities: No edema, Capillary Refill Less than 3 Seconds Skin: No rashes, No breakdown Musculoskeletal: No Tenderness to Palpation of Joints or Extremities Neurological: Cranial nerves II-XII grossly intact Psych/Mental Status: Normal Affect, Appropriate Laboratory Results 05/13/17 00:05: MRSA (PCR) Negative 05/13/17 00:35: Magnesium 2.0 05/13/17 00:35: Troponin I 1.17 H* 05/13/17 02:10: Urine Color Yellow, Urine Clarity Sl. Cloudy, Urine pH 5.0, Ur Specific [place] 1.015, Urine Protein Negative, Urine Glucose (UA) Normal, Urine Ketones 15 H, Urine Occult Blood 10 H, Urine Nitrite Negative, Urine Bilirubin Negative, Urine Urobilinogen Normal, Ur Leukocyte Esterase Negative, Urine RBC 0-5 SEEN, Urine WBC 0 SEEN, Ur Squamous Epith Cells 0-5 SEEN, Amorphous Sediment 1+ URATE, Urine Bacteria 0 SEEN, Fine Granular Casts 0-5 SEEN, Urine Mucus 0 SEEN 05/13/17 03:00: Troponin I 4.41 H* 05/13/17 04:45: WBC 8.7, RBC 4.91, Hgb 15.5, Hct 44.9, MCV 91.4, MCH 31.6, MCHC 34.5, RDW 12.4, RDW Differential 40.8, Plt Count 261, MPV 8.8 05/13/17 04:45: Sodium 140, Potassium 3.5, Chloride 105, Carbon Dioxide 27.0, Anion Gap 8, BUN 15, Creatinine 0.98, Estim Creat Clear Calc 82.16, Est GFR (MDRD) Af Amer 101, Est GFR (MDRD) Non-Af 84, BUN/Creatinine Ratio 15.3, Glucose 122 H, Calcium 8.4 L, Triglycerides 96, Cholesterol 178, LDL Cholesterol 109, VLDL Cholesterol 19, HDL Cholesterol 50 05/13/17 04:45: PT 13.4, INR 1.0, APTT 107.4 H* 05/13/17 07:28: Activated Clotting Time 125 05/13/17 08:03: Activated Clotting Time 202 H 05/13/17 08:35: Total Creatine Kinase Pending 05/13/17 08:35: WBC 8.6, RBC 4.87, Hgb 15.2, Hct 45.0, MCV 92.4, MCH 31.2, MCHC 33.8, RDW 12.5, RDW Differential 41.6, Plt Count 246, MPV 8.9 05/13/17 08:35: Troponin I Pending Current Medications Acetaminophen (Tylenol) 650 mg PO Q6H PRN PRN PRN Reason: Non-cardiac pain (mod-severe) Hydrocodone Bitart/Acetaminophen ([place] 5mg-325mg) 1 - 2 tablet PO Q6H PRN PRN PRN Reason: Moderate-severe pain Al Hydroxide/Mg Hydroxide (Mylanta Ii) 30 ml PO Q6H PRN PRN PRN Reason: Gastric burning Aspirin (Ecotrin) 81 mg PO DAILY@0800 [facility] Last Admin: 05/13/17 06:09 Dose: 81 mg Atorvastatin Calcium (Lipitor) 80 mg PO QHS [facility] Last Admin: 05/13/17 00:48 Dose: 80 mg Atropine Sulfate () 0.5 mg IV UD PRN PRN Reason: HR <50 bpm Clopidogrel Bisulfate (Plavix) 75 mg PO DAILY [facility] Diazepam (Valium) 5 mg PO Q6H PRN PRN PRN Reason: BACK SPASMS/ANXIETY Famotidine (Pepcid) 20 mg PO BID [facility] Last Admin: 05/13/17 00:48 Dose: 20 mg Hydralazine HCl (Apresoline) 10 mg IV Q4H PRN PRN PRN Reason: SBP > 160 Nitroglycerin/Dextrose () 250 mls @ 3 mls/hr IV .[id number] GEOFFREY; 5 MCG/MIN PRN Reason: Protocol Last Admin: 05/12/17 21:50 Dose: 3 mls/hr Sodium Chloride () 250 mls @ 15 mls/hr IV .[id number] PRN PRN Reason: SALINE FLUSH Last Admin: 05/13/17 03:24 Dose: 15 mls/hr Amiodarone HCl/Dextrose (Nexterone 360 Mg/200 Ml Bag) 360 mg in 200 mls @ 33.333 mls/hr CONT INF .Q6H ONE PRN Reason: 1 MG/MIN Stop: 05/13/17 09:04 Last Admin: 05/13/17 03:47 Dose: 33.333 mls/hr Amiodarone HCl/Dextrose (Nexterone 360 Mg/200 Ml Bag) 360 mg in 200 mls @ 16.667 mls/hr IV .Q12H GEOFFREY PRN Reason: 0.5 MG/MIN Stop: 05/14/17 03:03 Sodium Chloride () 1,000 mls @ 150 mls/hr IV .[id number] GEOFFREY Stop: 05/13/17 14:50 Last Admin: 05/13/17 08:47 Dose: 150 mls/hr Lisinopril (Zestril) 5 mg PO DAILY [facility] Magnesium Hydroxide (Milk Of Magnesia) 30 ml PO DAILY PRN PRN PRN Reason: Constipation Metoclopramide HCl (Reglan) 5 mg IV Q6H PRN PRN Reason: NAUSEA/VOMITING Metoprolol Tartrate (Lopressor (Beta Melany)) 12.5 mg PO BID GEOFF[facility]Y Morphine Sulfate (Morphine) 1 - 2 mg IV Q4H PRN PRN PRN Reason: PAIN Ondansetron HCl (Zofran) 4 mg IV Q8H PRN PRN PRN Reason: NAUSEA Promethazine HCl (Phenergan (Ll)) 12.5 mg IV Q6H PRN PRN PRN Reason: NAUSEA/VOMITING Sodium Chloride () 5 - 30 ml IV UD PRN PRN Reason: SALINE FLUSH Last Admin: 05/13/17 08:46 Dose: 20 ml Sodium Chloride () 500 ml IV BOLUS PRN PRN Reason: VASO-VAGAL PROTOCOL Temazepam (Restoril) 15 mg PO QHS PRN PRN PRN Reason: insomnia Assessment/Plan Active and Suspected Problems ACS (acute coronary syndrome) (Acute) Non-STEMI (non-ST elevated myocardial infarction) (Acute) Ventricular arrhythmia (Acute) This is a 57-year-old gentleman with history of dyslipidemia and obesity was admitted with chest pain/heaviness and wide-complex tachycardia consistent non-STEMI with V. tach. Patient being admitted in ICU. On amiodarone drip. In the morning today he had cardiac cath and he had a critical lesion in proximal LAD for which he had PCI and ULYSSES. Other arteries left circumflex and RCA shows minimal nonobstructive disease. LV function mildly depressed with anterior apical hypokinesis EF 50%. 1. Acute coronary syndrome with non-STEMI and wide complex tachycardia/NSVT/ V tach due to new critical descending proximal LAD status post stent: Currently, patient is in normal sinus rhythm. Continue with amiodarone drip. Discussed with Dr. Murcia. Advised to complete the amiodarone bag, on metoprolol, lisinopril, aspirin, Plavix and a statin. Troponin was elevated from 0.08-4.41. 2D echo. Plan for removal of sheath later today. 2. Dyslipidemia: Fasting profile shows total cholesterol 178, triglyceride 96, LDL 109 and HDL 50. 3. Other comorbidities include obesity: DVT prophylaxis: On SCDs. Resume Lovenox as per protocol at least 6 hours after the removal of sheath Code Visit Inpatient E&M: 80250 Subs Hosp L3
[2017-05-13 09:12] LABS: CPK Total, Creatine Kinase 916 U/L (39-308)
--- NOTE | 2017-05-13 09:15 | PN_ITS ---
Patient Problems: Active and Suspected Problems ACS (acute coronary syndrome) (Acute) Non-STEMI (non-ST elevated myocardial infarction) (Acute) Ventricular arrhythmia (Acute) Subjective: The patient was admitted last night for non-STEMI with V. tach. Patient denies any previous cardiac history or [place]. He has history of dyslipidemia. Patient developed substernal chest heaviness and tightness after treadmill exercise. Patient was later on admitted in ICU and developed wide-complex tachycardia and was started on amiodarone drip. Troponins are elevated. In the morning today he had cardiac cath and he had a critical lesion in proximal LAD for which he had PCI and ULYSSES. Other arteries left circumflex and RCA shows minimal nonobstructive disease. LV function mildly depressed with anterior apical hypokinesis EF 50%. Vitals/I&O's: Vital Signs Temp Pulse Resp BP Pulse Ox 98.7 F 68 18 119/79 97 05/13/17 04:00 05/13/17 08:00 05/13/17 06:00 05/13/17 06:00 05/13/17 08:54 Oxygen Flow Rate (L/min) 2 Oxygen Delivery Method Room Air Weight: 212 lb 8.41 oz Body Mass Index (BMI) 31.3 Intake and Output for Last 24 Hours 05/11/17 05/12/17 05/13/17 23:59 23:59 23:59 Intake Total 1012.1 / 1012.1 Output Total 1200 / 1200 Balance -187.9 / -187.9 General: Alert, Oriented x3, Cooperative HEENT: Atraumatic, PERRLA, EOMI, Normocephalic Neck: Supple, No JVD, Negative Carotid Bruits Lungs: Clear to auscultation, No rhonchi, No wheeze, No rales, Diminished Cardiovascular: Regular rate, Regular Rhythm, Normal S1, Normal S2, No murmurs, - - Normal sinus rhythm on monitor. On amiodarone drip. Abdomen: Bowel Sounds Present, Soft, Non Tender Extremities: No edema, Capillary Refill Less than 3 Seconds Skin: No rashes, No breakdown Musculoskeletal: No Tenderness to Palpation of Joints or Extremities Neurological: Cranial nerves II-XII grossly intact Psych/Mental Status: Normal Affect, Appropriate Laboratory Results 05/13/17 00:05: MRSA (PCR) Negative 05/13/17 00:35: Magnesium 2.0 05/13/17 00:35: Troponin I 1.17 H* 05/13/17 02:10: Urine Color Yellow, Urine Clarity Sl. Cloudy, Urine pH 5.0, Ur Specific [place] 1.015, Urine Protein Negative, Urine Glucose (UA) Normal, Urine Ketones 15 H, Urine Occult Blood 10 H, Urine Nitrite Negative, Urine Bilirubin Negative, Urine Urobilinogen Normal, Ur Leukocyte Esterase Negative, Urine RBC 0-5 SEEN, Urine WBC 0 SEEN, Ur Squamous Epith Cells 0-5 SEEN, Amorphous Sediment 1+ URATE, Urine Bacteria 0 SEEN, Fine Granular Casts 0-5 SEEN , Urine Mucus 0 SEEN 05/13/17 03:00: Troponin I 4.41 H* 05/13/17 04:45: WBC 8.7, RBC 4.91, Hgb 15.5, Hct 44.9, MCV 91.4, MCH 31.6, MCHC 34.5, RDW 12.4, RDW Differential 40.8, Plt Count 261, MPV 8.8 05/13/17 04:45: Sodium 140, Potassium 3.5, Chloride 105, Carbon Dioxide 27.0, Anion Gap 8, BUN 15, Creatinine 0.98, Estim Creat Clear Calc 82.16, Est GFR ( MDRD) Af Amer 101, Est GFR (MDRD) Non-Af 84, BUN/Creatinine Ratio 15.3, Glucose 122 H, Calcium 8.4 L, Triglycerides 96, Cholesterol 178, LDL Cholesterol 109, VLDL Cholesterol 19, HDL Cholesterol 50 05/13/17 04:45: PT 13.4, INR 1.0, APTT 107.4 H* 05/13/17 07:28: Activated Clotting Time 125 05/13/17 08:03: Activated Clotting Time 202 H 05/13/17 08:35: Total Creatine Kinase Pending 05/13/17 08:35: WBC 8.6, RBC 4.87, Hgb 15.2, Hct 45.0, MCV 92.4, MCH 31.2, MCHC 33.8, RDW 12.5, RDW Differential 41.6, Plt Count 246, MPV 8.9 05/13/17 08:35: Troponin I Pending Current Medications Acetaminophen (Tylenol) 650 mg PO Q6H PRN PRN PRN Reason: Non-cardiac pain (mod-severe) Hydrocodone Bitart/Acetaminophen ([place] 5mg-325mg) 1 - 2 tablet PO Q6H PRN PRN PRN Reason: Moderate-severe pain Al Hydroxide/Mg Hydroxide (Mylanta Ii) 30 ml PO Q6H PRN PRN PRN Reason: Gastric burning Aspirin (Ecotrin) 81 mg PO DAILY@0800 [facility] Last Admin: 05/13/17 06:09 Dose: 81 mg Atorvastatin Calcium (Lipitor) 80 mg PO QHS [facility] Last Admin: 05/13/17 00:48 Dose: 80 mg Atropine Sulfate () 0.5 mg IV UD PRN PRN Reason: HR <50 bpm Clopidogrel Bisulfate (Plavix) 75 mg PO DAILY [facility] Diazepam (Valium) 5 mg PO Q6H PRN PRN PRN Reason: BACK SPASMS/ANXIETY Famotidine (Pepcid) 20 mg PO BID [facility] Last Admin: 05/13/17 00:48 Dose: 20 mg Hydralazine HCl (Apresoline) 10 mg IV Q4H PRN PRN PRN Reason: SBP > 160 Nitroglycerin/Dextrose () 250 mls @ 3 mls/hr IV .[id number] GEOFFREY; 5 MCG/MIN PRN Reason: Protocol Last Admin: 05/12/17 21:50 Dose: 3 mls/hr Sodium Chloride () 250 mls @ 15 mls/hr IV .[id number] PRN PRN Reason: SALINE FLUSH Last Admin: 05/13/17 03:24 Dose: 15 mls/hr Amiodarone HCl/Dextrose (Nexterone 360 Mg/200 Ml Bag) 360 mg in 200 mls @ 33.333 mls/hr CONT INF .Q6H ONE PRN Reason: 1 MG/MIN Stop: 05/13/17 09:04 Last Admin: 05/13/17 03:47 Dose: 33.333 mls/hr Amiodarone HCl/Dextrose (Nexterone 360 Mg/200 Ml Bag) 360 mg in 200 mls @ 16.667 mls/hr IV .Q12H GEOFFREY PRN Reason: 0.5 MG/MIN Stop: 05/14/17 03:03 Sodium Chloride () 1,000 mls @ 150 mls/hr IV .Q6H40M GEOFFREY Stop: 05/13/17 14:50 Last Admin: 05/13/17 08:47 Dose: 150 mls/hr Lisinopril (Zestril) 5 mg PO DAILY [facility] Magnesium Hydroxide (Milk Of Magnesia) 30 ml PO DAILY PRN PRN PRN Reason: Constipation Metoclopramide HCl (Reglan) 5 mg IV Q6H PRN PRN Reason: NAUSEA/VOMITING Metoprolol Tartrate (Lopressor (Beta Melany)) 12.5 mg PO BID GEOFF[facility] Morphine Sulfate (Morphine) 1 - 2 mg IV Q4H PRN PRN PRN Reason: PAIN Ondansetron HCl (Zofran) 4 mg IV Q8H PRN PRN PRN Reason: NAUSEA Promethazine HCl (Phenergan (Ll)) 12.5 mg IV Q6H PRN PRN PRN Reason: NAUSEA/VOMITING Sodium Chloride () 5 - 30 ml IV UD PRN PRN Reason: SALINE FLUSH Last Admin: 05/13/17 08:46 Dose: 20 ml Sodium Chloride () 500 ml IV BOLUS PRN PRN Reason: VASO-VAGAL PROTOCOL Temazepam (Restoril) 15 mg PO QHS PRN PRN PRN Reason: insomnia Assessment/Plan Active and Suspected Problems ACS (acute coronary syndrome) (Acute) Non-STEMI (non-ST elevated myocardial infarction) (Acute) Ventricular arrhythmia (Acute) This is a 57-year-old gentleman with history of dyslipidemia and obesity was admitted with chest pain/heaviness and wide-complex tachycardia consistent non-STEMI with V. tach. Patient being admitted in ICU. On amiodarone drip. In the morning today he had cardiac cath and he had a critical lesion in proximal LAD for which he had PCI and ULYSSES. Other arteries left circumflex and RCA shows minimal nonobstructive disease. LV function mildly depressed with anterior apical hypokinesis EF 50%. 1. Acute coronary syndrome with non-STEMI and wide complex tachycardia/NSVT/ V tach due to new critical descending proximal LAD status post stent: Currently, patient is in normal sinus rhythm. Continue with amiodarone drip. Discussed with Dr. Murcia. Advised to complete the amiodarone bag, on metoprolol, lisinopril, aspirin, Plavix and a statin. Troponin was elevated from 0.08- 4.41. 2D echo. Plan for removal of sheath later today. 2. Dyslipidemia: Fasting profile shows total cholesterol 178, triglyceride 96, LDL 109 and HDL 50. 3. Other comorbidities include obesity: DVT prophylaxis: On SCDs. Resume Lovenox as per protocol at least 6 hours after the removal of sheath Code Visit Inpatient E&M: [id number] Subs Hosp L3
[2017-05-13 10:36] LABS: ACT Activated Clotting Time 175 sec (74-137)
--- NOTE | 2017-05-13 11:13 | CASEMGMT ---
See RN CM Assessment Link. Intro role of CM to patient in room. States he is independent, no DME, no dc concerns.Pauly BLANDN RN ACM
--- NOTE | 2017-05-13 11:31 | CRPHASE1 ---
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 Phase I Charge:: Level I - Education Risk Factors/Lifestyle Smoking Status: Never smoker Hx Hypertension: Yes Hx Diabetes Mellitus Type 2: No Height: 1.75 m Weight:: 96.162 kg BMI: 31.3 Caffeine: Yes Laboratory Values: Cardiac Rehab Phase I Labs Triglycerides 96 mg/dL (-199) 05/13/17 04:45 Cholesterol 178 mg/dL (200) 05/13/17 04:45 LDL Cholesterol 109 mg/dL (0-130) 05/13/17 04:45 HDL Cholesterol 50 mg/dL (40-) 05/13/17 04:45 Hospital Course Pain Description: Tightness - AFTER ESERCISING Cardiac Cath Date:: 05/13/17 Medical/Surgical History [place]:: No Angina:: Yes - TIGHTNESS Diabetes Type II:: No Discharge/Home/Social Eval Discharge Disposition: Home
--- NOTE | 2017-05-13 11:34 | CRPHASE1_ITS ---
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 Murcia Phase I Charge:: Level I - Education Risk Factors/Lifestyle Smoking Status: Never smoker Hx Hypertension: Yes Hx Diabetes Mellitus Type 2: No Height: 1.75 m Weight:: 96.162 kg BMI: 31.3 Caffeine: Yes Laboratory Values: Cardiac Rehab Phase I Labs Triglycerides 96 mg/dL (-199) 05/13/17 04:45 Cholesterol 178 mg/dL (200) 05/13/17 04:45 LDL Cholesterol 109 mg/dL (0-130) 05/13/17 04:45 HDL Cholesterol 50 mg/dL (40-) 05/13/17 04:45 Hospital Course Pain Description: Tightness - AFTER ESERCISING Cardiac Cath Date:: 05/13/17 Medical/Surgical History [place]:: No Angina:: Yes - TIGHTNESS Diabetes Type II:: No Discharge/Home/Social Eval Discharge Disposition: Home
--- NOTE | 2017-05-13 11:34 | CRPH1.INSTRU ---
General Education CAD and cardiac anatomy and function:: Patient communicates acknowledgment Explanation of diagnoses and procedures:: Patient communicates acknowledgment Sign/Symptoms of PA:: Patient communicates acknowledgment Antiplatelet therapy: Patient communicates acknowledgment Proper use of NTG-SL: Patient communicates acknowledgment Emergency procedures and activation of EMS: Patient communicates acknowledgment Compliance of all prescribed medications: Patient communicates acknowledgment Smoking Patient Nicotine/Smoking Risk Factors Are:: Never smoked Dyslipidemia Recommendations Include:: Lipid profile not available Overweight/Obesity Patient Overweight/Obesity Risk Factors Are:: Overweight = 26-29 Recommendations Include:: Weight loss of 5-10% Overweight/Obesity:: Patient communicates acknowledgment Hypertension Patient Hypertension Risk Factors Are:: No documented hx of HTN Hypertension:: Patient communicates acknowledgment Heart Disease Patient Heart Disease Risk Factors Are:: Family history of heart disease < 65 years old Heart Disease Response Code:: Patient communicates acknowledgment Diabetes Patient Diabetes Risk Factors Are:: No documented hx of diabetes Metabolic Syndrome Recommendations Include:: Does not meet criteria Sedentary Sedentary Response Code:: Patient communicates acknowledgment - he was exercising at time of chest pian Stress Patient Stress Risk Factors Are:: Patient denies stress as a risk factor
[2017-05-13 11:36] LABS: ACT Activated Clotting Time 153 sec (74-137)
--- NOTE | 2017-05-13 11:38 | CRPH1.INST_ITS ---
General Education CAD and cardiac anatomy and function:: Patient communicates acknowledgment Explanation of diagnoses and procedures:: Patient communicates acknowledgment Sign/Symptoms of KS:: Patient communicates acknowledgment Antiplatelet therapy: Patient communicates acknowledgment Proper use of NTG-SL: Patient communicates acknowledgment Emergency procedures and activation of EMS: Patient communicates acknowledgment Compliance of all prescribed medications: Patient communicates acknowledgment Smoking Patient Nicotine/Smoking Risk Factors Are:: Never smoked Dyslipidemia Recommendations Include:: Lipid profile not available Overweight/Obesity Patient Overweight/Obesity Risk Factors Are:: Overweight = 26-29 Recommendations Include:: Weight loss of 5-10% Overweight/Obesity:: Patient communicates acknowledgment Hypertension Patient Hypertension Risk Factors Are:: No documented hx of HTN Hypertension:: Patient communicates acknowledgment Heart Disease Patient Heart Disease Risk Factors Are:: Family history of heart disease < 65 years old Heart Disease Response Code:: Patient communicates acknowledgment Diabetes Patient Diabetes Risk Factors Are:: No documented hx of diabetes Metabolic Syndrome Recommendations Include:: Does not meet criteria Sedentary Sedentary Response Code:: Patient communicates acknowledgment - he was exercising at time of chest pian Stress Patient Stress Risk Factors Are:: Patient denies stress as a risk factor
[2017-05-13] MEDS: Metoprolol Tartrate 25 MG Tablet 12.5 MG PO ×2 (12:12→21:06)
--- NOTE | 2017-05-13 12:41 | CL.I_ITS ---
Patient Name: JORGE BOWER Study Date: 05/13/2017 Performing: Syed Murcia MD Ht: 69 inches 175 cm : 1960 Wt: 211.9 lbs 96 kg Age: 57 Gender: male BSA: 2.11 PROCEDURE(S) PERFORMED WP62-GIQ/COR/LV [id number]-LWE W OR WO PTCA, SINGLE CORONARY ARTERY CLINICAL PROFILE AND CO-MORBIDITIES INDICATIONS: Unstable Angina Stress/Imaging Stress/Image Study Performed: No Angina Classification Anginal Classification w/in 2 Weeks: No symptoms CAD Presentations: Non-STEMI. 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 Segmented LV systolic dysfunction- Mild Non obstructive coronary arteries Successful PTCA/ULYSSES of the proximal LAD with a 3.0 x 20 Promus Synergy stent; 75%-->0%. No dissectio n. Medical management of non obstructive LAD disease. RECOMMENDATIONS Referred for immediate PCI ASA Indefinitely Risk factor modification Plavix for at least 12 months Highly recommend quitting all tobacco products Follow up with primary financial dealers Risk factor modification ASA Indefinitley Plavix for at least 12 months Routine post interventional care Refer for Outpatient Cardiac Rehab Manual sheath removal per protocol Follow up with Dr. Murcia Manual sheath removal. DESCRIPTION OF PROCEDURE The patient arrived to the procedure lab. The risks and benefits of the procedure as well as a full d escription of our services here and lack of surgical backup were fully explained to the patient and/o r their significant other prior to the catheterization. The Timeout was completed, verifying the stephanie ect patient and procedure. The patient's procedural site was prepped and draped in the usual fashion. Local anesthetic was given subcutaneously to right groin region with Lidocaine 2%. Using a modified Seldinger technique, arterial access was obtained via the right femoral artery, a 4Fr sheath was inse rted. Left Coronary Artery selective angiography was performed in multiple views using a 4 Fr. JL5 c atheter. Right Coronary Artery selective angiography was then performed in multiple views using a 4 F r. 3DRC catheter. Left Ventriculography was performed in SAUCEDO projection using a 4 Fr. Pigtail cathete rThe images were reviewed and options discussed. A decision was then made to proceed with an Interven tion, IVUS or other adjunct procedure. Arterial sheath was exchanged for a 6 Fr Sheath Angiogram performed pre balloon dilatation. bmw Guide wire was advanced to the LAD. [place] AP inserted Pass # 1 [place] AP Removed Angiogram performed pre balloon dilatation. ebu 3.75 Guide catheter was inserted and engaged into the LCA. emerge 2.00 x 12 B alloon catheter was inserted. PTCA balloon inflated at 8 atms for 10 secs PTCA balloon inflated at 10 atms for 11 secs Angiogram performed post balloon dilatation. Angiogram performed pre stent deployme nt. synergy 3.00 x 20 Drug Eluting stent was advanced across the lesion in the LAD, proximal. Angiogr am performed post stent deployment.. . The arterial sheath was sutured in place and capped. CORONARY ANGIOGRAPHY DOMINANCE: Right Dominant LEFT HEART ASSESSMENT Left Ventricular Ejection Fraction: by LV Gram 50 % Depressed Left Ventricular systolic function Apical Hypokinesis - Moderate. Anterior Hypokinesis - Mild LEFT MAIN: Angiographically normal LEFT ANTERIOR DECENDING ARTERY: PROX LAD: 75 % Stenosis DISTAL LAD: Mild luminal irregularities less than 30% CIRCUMFLEX ARTERY: No significant disease noted RIGHT CORONARY ARTERY: No significant disease noted INTERVENTION INFORMATION LESION SITE: LAD (Proximal) Lesion Complexity: High/C, lesion at bifurcation: Yes, thrombus present: No, lesion length: 20 mm, cu lprit lesion: Yes Pre Stenosis: 75 % Pre intervention JURGEN flow: 3 PROCEDURE: Drug Eluting Stent with pre and post dilatation Post Stenosis: 0 % Post intervention JURGEN flow: 3 Lesion Devices: Medtronic 6 Fr EBU3.75 100cm Guide Catheter [place] .014 [employer] [place] Straight 190cm Medtronic 6 Fr. [place] AP Aspiration Catheter Sathish Sci EMERGE MR 2.00x12 BALLOON Sathish Sci Synergy MR ULYSSES 3.00x20 COMPLICATIONS No Complications PROCEDURE MEDICATIONS Oxygen: 2 L/min via nasal cannula Amiodarone 500mg / 100ml D5W @ 33 mcg/kg/min IV started in icu continued infusing @ 05/13/2017 07:10:0 0 Nitro glycerin 25mg / 250ml D5W @ 5 mcg/min IV started in icu infusing 05/13/2017 07:17:49 Nitro 200 mcg IC 05/13/2017 07:37:58 Nitro 200 mcg IC 05/13/2017 07:46:51 Potassium Chloride 10 mEq in 100cc NS started infusing in icu 05/13/2017 07:14:10 SUMMARY OF HEMODYNAMIC DATA Time AIR REST ECG 07:02:32 AO 104/77 (91) SA 07:27:07 LV 140/-20, 18 07:33:36 LVp 135/-19, 18 07:33:48 AOp 131/65 (91) 07:33:53 Signed By Syed Murcia MD On 05/13/2017 08:15:40 Syed Murcia MD
[2017-05-13] MEDS: Lisinopril 5 MG Tablet PO (14:07)
[2017-05-13] MEDS: Mag Hydrox/Al Hydrox/Simeth 30 ML UDC PO (14:11)
[2017-05-13 15:21] LABS: Hematocrit 45.7 % (40-54); Hemoglobin 15.3 g/dl (13.0-16.5); Mean Corp Hgb Conc 33.5 g/gl (32-36); Mean Corpuscular Hgb 31.5 pg (27.0-32.0); Platelet Count 231 K/mm3 (150-450); RBC Distribution Width CV 12.8 % (11.6-14.6); RBC Distribution Width SD 43.5 fl (35.1-43.9); Red Blood Count 4.86 M/mm3 (4.6-6.2); White Blood Count 7.8 K/mm3 (4.4-11.0)
[2017-05-13 15:22] LABS: Scan Indicated on CBC? Y/N NO
[2017-05-13 15:37] LABS: CPK Total, Creatine Kinase 969 U/L (39-308)
[2017-05-13] MEDS: MELATONIN 10 MG TABLET PO (21:06)
[2017-05-13 21:10] LABS: Hematocrit 46.4 % (40-54); Hemoglobin 15.3 g/dl (13.0-16.5); Mean Corpuscular Volume 93.9 fL (80-94); Mean Platelet Vol. 8.8 fl (6.2-12.0); Platelet Count 220 K/mm3 (150-450); RBC Distribution Width CV 12.7 % (11.6-14.6); RBC Distribution Width SD 43.8 fl (35.1-43.9); Red Blood Count 4.94 M/mm3 (4.6-6.2); White Blood Count 7.9 K/mm3 (4.4-11.0)
[2017-05-13 21:14] LABS: Scan Indicated on CBC? Y/N NO
[2017-05-13 21:34] LABS: CPK Total, Creatine Kinase 911 U/L (39-308)
[2017-05-14] VITALS (23 sets, daily range): BP systolic 112–131; BP diastolic 67–97; PULSE 55–74; RESP 10–20; TEMP 35.8–37; O2SAT 94–100
[2017-05-14 02:56] LABS: Hematocrit 44.6 % (40-54); Hemoglobin 15.2 g/dl (13.0-16.5); Mean Corp Hgb Conc 34.1 g/gl (32-36); Mean Corpuscular Hgb 31.9 pg (27.0-32.0); Mean Corpuscular Volume 93.5 fL (80-94); Platelet Count 241 K/mm3 (150-450); RBC Distribution Width CV 12.6 % (11.6-14.6); RBC Distribution Width SD 42.6 fl (35.1-43.9); Red Blood Count 4.77 M/mm3 (4.6-6.2); White Blood Count 7.2 K/mm3 (4.4-11.0)
[2017-05-14 02:58] LABS: Scan Indicated on CBC? Y/N NO
[2017-05-14 03:27] LABS: Anion Gap 8 (5-15); BUN 12 mg/dL (7-18); BUN/Creat Ratio 11.3 RATIO (10-20); Calcium,Total 8.4 mg/dL (8.5-10.1); Chloride 104 mmol/L (98-107); Cholesterol 139 mg/dL (200); Creatinine, Serum 1.06 mg/dL (0.70-1.30); EST Glomerular Filtration Rate 76 mL/min (>60); Est Glom Filt Rate - Afr Amer 92 mL/min (>60); Estimated Creatinine Clearance 75.96 ml/min; Glucose 110 mg/dL (74-106); High Density Lipoprotein 46 mg/dL; Potassium 4.1 mmol/L (3.5-5.1); Sodium Level 141 mmol/L (136-145); Triglycerides 115 mg/dL; Very Low Density Lipoprotein 23 mg/dL (5-40)
--- NOTE | 2017-05-14 05:55 | EKG12_ITS ---
Test Reason : AM Blood Pressure : / mmHG Vent. Rate : 059 BPM Atrial Rate : 059 BPM P-R Int : 184 ms QRS Dur : 084 ms QT Int : 492 ms P-R-T Axes : 024 056 070 degrees QTc Int : [address] & T wave abnormality, consider anterior ischemia Prolonged QT Abnormal ECG Confirmed by HAYDEE JEFF ([id number]), communications editor BRITTANIE ROMERO ([id number]) on 05/18/2017 2:34:51 PM Referred By: GENO Confirmed By:HAYDEE JEFF
[2017-05-14 06:26] LABS: Magnesium 2.3 mg/dL (1.6-2.6)
[2017-05-14] MEDS: Metoprolol Tartrate 25 MG Tablet 12.5 MG PO ×2 (09:14→21:29)
[2017-05-14] MEDS: Clopidogrel Bisulfate 75 MG Tablet PO (09:14)
[2017-05-14] MEDS: Famotidine 20 MG Tablet PO ×2 (09:14→21:29)
[2017-05-14] MEDS: Aspirin E.C. 81 MG Tablet PO (09:14)
[2017-05-14] MEDS: Lisinopril 5 MG Tablet PO (09:14)
[2017-05-14] MEDS: 0.9% NaCl Peripheral Flush Adult/Peds IV ×2 (09:14→21:47)
[2017-05-14 09:35] LABS: Hematocrit 47.5 % (40-54); Hemoglobin 16.3 g/dl (13.0-16.5); Mean Corp Hgb Conc 34.3 g/gl (32-36); Mean Corpuscular Hgb 31.8 pg (27.0-32.0); Mean Corpuscular Volume 92.8 fL (80-94); Mean Platelet Vol. 8.9 fl (6.2-12.0); Platelet Count 261 K/mm3 (150-450); RBC Distribution Width CV 12.5 % (11.6-14.6); RBC Distribution Width SD 41.9 fl (35.1-43.9); Red Blood Count 5.12 M/mm3 (4.6-6.2); White Blood Count 6.5 K/mm3 (4.4-11.0)
[2017-05-14 09:36] LABS: Scan Indicated on CBC? Y/N NO
--- NOTE | 2017-05-14 10:06 | PN_ITS ---
Patient Problems: Active and Suspected Problems ACS (acute coronary syndrome) (Acute) Non-STEMI (non-ST elevated myocardial infarction) (Acute) Ventricular arrhythmia (Acute) Subjective: Patient did not had chest pressure or pain yesterday night. Immune drip was stopped at 2:15 AM. Sheath removed yesterday. No groin hematoma. 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 automatic punch press operator reviewed. No drop in blood pressure. Vitals/I&O's: Vital Signs Temp Pulse Resp BP Pulse Ox 98.0 F 67 18 126/79 H 96 05/14/17 08:00 05/14/17 09:14 05/14/17 08:00 05/14/17 08:00 05/14/17 08:00 Oxygen Flow Rate (L/min) 2 Oxygen Delivery Method Room Air Weight: 209 lb 3.499 oz Body Mass Index (BMI) 31.3 Intake and Output for Last 24 Hours 05/12/17 05/13/17 05/14/17 23:59 23:59 23:59 Intake Total 2873.5 / 2873.5 255 / 255 Output Total 3250 / 3250 Balance -376.5 / -376.5 255 / 255 General: Alert, Oriented x3, Cooperative HEENT: Atraumatic, PERRLA, EOMI, Normocephalic Neck: Supple, No JVD, Negative Carotid Bruits Lungs: Clear to auscultation, Normal air movement, No rhonchi, No wheeze, No rales Cardiovascular: Regular rate, Regular Rhythm, Normal S1, Normal S2, No murmurs Abdomen: Bowel Sounds Present, Soft, Non Tender, Non-Distended Extremities: No edema, Capillary Refill Less than 3 Seconds Skin: No rashes, No breakdown Musculoskeletal: No Tenderness to Palpation of Joints or Extremities Neurological: Cranial nerves II-XII grossly intact Psych/Mental Status: Normal Affect, Appropriate Laboratory Results 05/13/17 09:22: Activated Clotting Time 175 H 05/13/17 11:10: Activated Clotting Time 153 H 05/13/17 14:00: WBC 7.8, RBC 4.86, Hgb 15.3, Hct 45.7, MCV 94.0, MCH 31.5, MCHC 33.5, RDW 12.8, RDW Differential 43.5, Plt Count 231, MPV 9.0 05/13/17 14:00: Total Creatine Kinase 969 H 05/13/17 20:50: WBC 7.9, RBC 4.94, Hgb 15.3, Hct 46.4, MCV 93.9, MCH 31.0, MCHC 33.0, RDW 12.7, RDW Differential 43.8, Plt Count 220, MPV 8.8 05/13/17 20:50: Total Creatine Kinase 911 H 05/14/17 02:15: Sodium 141, Potassium 4.1, Chloride 104, Carbon Dioxide 29.0, Anion Gap 8, BUN 12, Creatinine 1.06, Estim Creat Clear Calc 75.96, Est GFR ( MDRD) Af Amer 92, Est GFR (MDRD) Non-Af 76, BUN/Creatinine Ratio 11.3, Glucose 110 H, Calcium 8.4 L, Triglycerides 115, Cholesterol 139, LDL Cholesterol 70, VLDL Cholesterol 23, HDL Cholesterol 46 05/14/17 02:15: WBC 7.2, RBC 4.77, Hgb 15.2, Hct 44.6, MCV 93.5, MCH 31.9, MCHC 34.1, RDW 12.6, RDW Differential 42.6, Plt Count 241, MPV 9.0 05/14/17 02:15: Magnesium 2.3 05/14/17 08:00: WBC 6.5, RBC 5.12, Hgb 16.3, Hct 47.5, MCV 92.8, MCH 31.8, MCHC 34.3, RDW 12.5, RDW Differential 41.9, Plt Count 261, MPV 8.9 Current Medications Acetaminophen (Tylenol) 650 mg PO Q6H PRN PRN PRN Reason: Non-cardiac pain (mod-severe) Hydrocodone Bitart/Acetaminophen (Christiana 5mg-325mg) 1 - 2 tablet PO Q6H PRN PRN PRN Reason: Moderate-severe pain Al Hydroxide/Mg Hydroxide (Mylanta Ii) 30 ml PO Q6H PRN PRN PRN Reason: Gastric burning Last Admin: 05/13/17 14:11 Dose: 30 ml Aspirin (Ecotrin) 81 mg PO DAILY@0800 GEOFFREY Last Admin: 05/14/17 09:14 Dose: 81 mg Atorvastatin Calcium (Lipitor) 80 mg PO QHS [facility] Last Admin: 05/13/17 21:07 Dose: 80 mg Atropine Sulfate () 0.5 mg IV UD PRN PRN Reason: HR <50 bpm Clopidogrel Bisulfate (Plavix) 75 mg PO DAILY [facility] Last Admin: 05/14/17 09:14 Dose: 75 mg Diazepam (Valium) 5 mg PO Q6H PRN PRN PRN Reason: BACK SPASMS/ANXIETY Famotidine (Pepcid) 20 mg PO BID [facility] Last Admin: 05/14/17 09:14 Dose: 20 mg Hydralazine HCl (Apresoline) 10 mg IV Q4H PRN PRN PRN Reason: SBP > 160 Sodium Chloride () 250 mls @ 15 mls/hr IV .[id number] PRN PRN Reason: SALINE FLUSH Last Admin: 05/13/17 03:24 Dose: 15 mls/hr Lisinopril (Zestril) 5 mg PO DAILY [facility] Last Admin: 05/14/17 09:14 Dose: 5 mg Magnesium Hydroxide (Milk Of Magnesia) 30 ml PO DAILY PRN PRN PRN Reason: Constipation Melatonin (Melatonin) 10 mg PO QHS [facility] Last Admin: 05/13/17 21:06 Dose: 10 mg Metoclopramide HCl (Reglan) 5 mg IV Q6H PRN PRN Reason: NAUSEA/VOMITING Metoprolol Tartrate (Lopressor (Beta Melany)) 12.5 mg PO BID [facility] Last Admin: 05/14/17 09:14 Dose: 12.5 mg Morphine Sulfate (Morphine) 1 - 2 mg IV Q4H PRN PRN PRN Reason: PAIN Ondansetron HCl (Zofran) 4 mg IV Q8H PRN PRN PRN Reason: NAUSEA Promethazine HCl (Phenergan (Ll)) 12.5 mg IV Q6H PRN PRN PRN Reason: NAUSEA/VOMITING Sodium Chloride () 5 - 30 ml IV UD PRN PRN Reason: SALINE FLUSH Last Admin: 05/14/17 09:14 Dose: 20 ml Sodium Chloride () 500 ml IV BOLUS PRN PRN Reason: VASO-VAGAL PROTOCOL Temazepam (Restoril) 15 mg PO QHS PRN PRN PRN Reason: insomnia Assessment/Plan Active and Suspected Problems ACS (acute coronary syndrome) (Acute) Non-STEMI (non-ST elevated myocardial infarction) (Acute) Ventricular arrhythmia (Acute) This is a 57-year-old gentleman with history of dyslipidemia and obesity was admitted with chest pain/heaviness and wide-complex tachycardia consistent non-STEMI with V. tach. Patient being admitted in ICU. On amiodarone drip. In the morning today he had cardiac cath and he had a critical lesion in proximal LAD for which he had PCI and ULYSSES. Other arteries left circumflex and RCA shows minimal nonobstructive disease. LV function mildly depressed with anterior apical hypokinesis EF 50%. 1. Acute coronary syndrome with non-STEMI and wide complex tachycardia/NSVT/ V tach due to new critical descending proximal LAD status post stent: Currently, patient is in normal sinus rhythm. automatic punch press operator reviews and shows sinus rhythm. EKG in the morning shows T-wave inversion in V2 to V6 leads without chest pain. Amiodarone drip discontinued. Discussed with Dr. Murcia. Advised to complete the amiodarone bag, on metoprolol, lisinopril, aspirin, Plavix and a statin. Troponin was elevated from 0.08-4.41. 2D echo. Transferred to PCU monitor 1 more day. 2. Dyslipidemia: Fasting profile shows total cholesterol 178, triglyceride 96, LDL 109 and HDL 50. 3. Other comorbidities include obesity: DVT prophylaxis: On heparin 5000 subcutaneous twice daily SCDs. Code Visit Inpatient E&M: 37749 [facility] Hosp L3
--- NOTE | 2017-05-14 16:09 | PN.CARD_ITS ---
Subjectve: Patient doing well this morning, telemetry showed normal sinus rhythm, no ventricular tachycardia, EKG showed normal sinus rhythm with evolving anteroseptal T-wave inversion consistent with recent NM. Echocardiogram today showed intact LV function with an EF around 60% with mild anterior apical hypokinesis, normal pulmonary pressures. Right groin is clean/dry/intact, without evidence of thrills, bruits or hematoma. Hemoglobin and creatinine have remained within nominal limits. CKs trending downward. Objective: Vital Signs Temp Pulse Resp BP Pulse Ox 98.4 F 60 14 116/97 H 97 05/14/17 11:09 05/14/17 12:00 05/14/17 11:09 05/14/17 11:09 05/14/17 11:09 Oxygen Flow Rate (L/min) 2 Oxygen Delivery Method Room Air Weight: 209 lb 3.499 oz Body Mass Index (BMI) 31.3 Intake and Output for Last 24 Hours 05/12/17 05/13/17 05/14/17 23:59 23:59 23:59 Intake Total 2873.5 / 2873.5 735 / 735 Output Total 3250 / 3250 Balance -376.5 / -376.5 735 / 735 General: Awake, Alert, Oriented x 3 HEENT: PERRL, EOMI, Sclera Non Icteric Neck: Supple, Good ROM, No Lymph Node Enlargement Lungs: Clear to auscultation Cardiovascular: Regular Rhythm, Normal S1, Normal S2, No Murmurs, No Rubs, No Gallops Vascular: No Carotid Bruits, Normal Femoral Pulses, Normal Radial Pulses, Normal Dorsalis Pedal Pulse, Normal Posterior Tibial Pulses Abdomen: Bowel Sounds Present, Soft, Non Tender, No HSM, No Organomegaly Extremities: No Cyanosis, No Clubbing, No edema Neurological: No Focal Motor or Sensory Deficit 05/13/17 20:50: WBC 7.9, RBC 4.94, Hgb 15.3, Hct 46.4, MCV 93.9, MCH 31.0, MCHC 33.0, RDW 12.7, RDW Differential 43.8, Plt Count 220, MPV 8.8 05/14/17 02:15: Sodium 141, Potassium 4.1, Chloride 104, Carbon Dioxide 29.0, Anion Gap 8, BUN 12, Creatinine 1.06, Est GFR (MDRD) Af Amer 92, Est GFR (MDRD) Non-Af 76, BUN/Creatinine Ratio 11.3, Glucose 110 H, Calcium 8.4 L, Triglycerides 115, Cholesterol 139, LDL Cholesterol 70, VLDL Cholesterol 23, HDL Cholesterol 46 05/14/17 02:15: WBC 7.2, RBC 4.77, Hgb 15.2, Hct 44.6, MCV 93.5, MCH 31.9, MCHC 34.1, RDW 12.6, RDW Differential 42.6, Plt Count 241, MPV 9.0 05/14/17 02:15: Magnesium 2.3 05/14/17 08:00: WBC 6.5, RBC 5.12, Hgb 16.3, Hct 47.5, MCV 92.8, MCH 31.8, MCHC 34.3, RDW 12.5, RDW Differential 41.9, Plt Count 261, MPV 8.9 Rhythm: EKG: ECHO: As above Stress Test: Cardiac Cath: PCI: CT Surgery: Holter monitor: EPS: PPM: CXR: Chest CT Scan: Assessment/Plan 1. Acute coronary syndrome: The patient presents with unstable angina, abnormal EKG, wide-complex tachycardia, abnormal troponin of 4.10, with a newly discovered critical lesion in the proximal LAD with successful angioplasty and drug-eluting stenting receiving a 3.0X 20 Promus Synergy stent with an excellent result. At this point the patient will continue baby aspirin for life, Plavix at least for 1 year perhaps 2 given the nature of the LAD stent, and aggressive secondary risk factor modifications with beta-brook, ROBERT inhibitor, and statin. Patient's right groin is clean/dry/intact, without evidence of thrills , bruits or hematoma. Echocardiogram shows intact LV function with mild anteroapical hypokinesis with an EF around 55-60%. Normal right-sided pressures. He is tolerating beta-brook and ROBERT inhibitor well. Patient does not require any additional stress testing or PCI at this time. Would recommend keeping the patient 1 more day given his elevated troponins and CKs, and resolving anterolateral EKG changes. The patient has no further ectopy overnight, and is remained asymptomatic and hemodynamically stable, would recommend discharge home tomorrow. 2. Hyperlipidemia: Patient's LDL is 70 and HDL is 46. Continue Lipitor 80 mg p.o. nightly. Repeat lipid profile in 6 weeks time. 3. LV dysfunction: The patient has mild LV dysfunction which will hopefully improve with a combination of angioplasty, time, antihypertensive, and cardiac rehab. We will repeat his echocardiogram at the conclusion of cardiac rehab. 4. Thank you very much for the opportunity to put dissipate in the cardiac care of your patient. Patient may be discharged home tomorrow. Code Visit Inpatient E&M: 18752 Subs Hosp L2
[2017-05-14] MEDS: Atorvastatin Calcium 80 MG Tablet PO (21:29)
[2017-05-14] MEDS: MELATONIN 10 MG TABLET PO (21:29)
[2017-05-15] VITALS (8 sets, daily range): BP systolic 121–123; BP diastolic 72–74; PULSE 58–66; RESP 16–18; TEMP 36.7–36.8; O2SAT 96–98
--- NOTE | 2017-05-15 05:48 | EKG12_ITS ---
Test Reason : POST CATH Blood Pressure : / mmHG Vent. Rate : 068 BPM Atrial Rate : 068 BPM P-R Int : 190 ms QRS Dur : 088 ms QT Int : 410 ms P-R-T Axes : 035 062 063 degrees QTc Int : 435 ms Normal sinus rhythm Normal ECG When compared with ECG of 13-MAY-2017 03:59, MANUAL COMPARISON REQUIRED, DATA IS UNCONFIRMED Confirmed by HAYDEE JEFF ([id number]), manuscript editor BRITTANIE ROMERO ([id number]) on 05/18/2017 3:29:16 PM Referred By: LEVI Confirmed By:HAYDEE JEFF
--- NOTE | 2017-05-15 05:55 | EKG12_ITS ---
Test Reason : VTACH Blood Pressure : / mmHG Vent. Rate : 093 BPM Atrial Rate : 077 BPM P-R Int : 180 ms QRS Dur : 082 ms QT Int : 352 ms P-R-T Axes : 032 054 040 degrees QTc Int : 437 ms Sinus rhythm with frequent Premature ventricular complexes Nonspecific ST and T wave abnormality Abnormal ECG No previous ECGs available Confirmed by BRANDON PENA, CLAUDE ([id number]), electronic health records specialist BRITTANIE ROMERO ([id number]) on 05/15/2017 2:01:18 PM Referred By: Confirmed By:CLAUDE TAYLOR MD
[2017-05-15 06:34] LABS: Anion Gap 6 (5-15); BUN 12 mg/dL (7-18); BUN/Creat Ratio 11.9 RATIO (10-20); Calcium,Total 8.9 mg/dL (8.5-10.1); Chloride 103 mmol/L (98-107); Creatinine, Serum 1.01 mg/dL (0.70-1.30); EST Glomerular Filtration Rate 81 mL/min (>60); Est Glom Filt Rate - Afr Amer 98 mL/min (>60); Estimated Creatinine Clearance 79.72 ml/min; Glucose 104 mg/dL (74-106); Potassium 3.9 mmol/L (3.5-5.1); Sodium Level 137 mmol/L (136-145)
[2017-05-15] MEDS: Famotidine 20 MG Tablet PO (08:20)
[2017-05-15] MEDS: Lisinopril 5 MG Tablet PO (08:20)
[2017-05-15] MEDS: Aspirin E.C. 81 MG Tablet PO (08:20)
[2017-05-15] MEDS: Metoprolol Tartrate 25 MG Tablet 12.5 MG PO (08:20)
[2017-05-15] MEDS: Clopidogrel Bisulfate 75 MG Tablet PO (08:20)
--- NOTE | 2017-05-15 10:33 | PN.CARD_ITS ---
Subjectve: Patient doing very well, no 24 hour events. Telemetry negative. EKG shows normal sinus rhythm with resolving anterior T-wave inversion. Objective: Vital Signs Temp Pulse Resp BP Pulse Ox 98.2 F 63 18 121/74 H 96 05/15/17 08:29 05/15/17 08:29 05/15/17 08:30 05/15/17 08:29 05/15/17 08:29 Oxygen Flow Rate (L/min) 2 Oxygen Delivery Method Room Air Weight: 205 lb 11.06 oz Body Mass Index (BMI) 31.3 Intake and Output for Last 24 Hours 05/13/17 05/14/17 05/15/17 23:59 23:59 23:59 Intake Total 2873.5 / 2873.5 735 / 735 240 / 240 Output Total 3250 / 3250 Balance -376.5 / -376.5 735 / 735 240 / 240 General: Awake, Alert, Oriented x 3 HEENT: PERRL, EOMI, Sclera Non Icteric Neck: Supple, Good ROM, No Lymph Node Enlargement Lungs: Clear to auscultation Cardiovascular: Regular Rhythm, Normal S1, Normal S2, No Murmurs, No Rubs, No Gallops Vascular: No Carotid Bruits, Normal Femoral Pulses, Normal Radial Pulses, Normal Dorsalis Pedal Pulse, Normal Posterior Tibial Pulses Abdomen: Bowel Sounds Present, Soft, Non Tender, No HSM, No Organomegaly Extremities: No Cyanosis, No Clubbing, No edema Neurological: No Focal Motor or Sensory Deficit 05/15/17 05:31: Sodium 137, Potassium 3.9, Chloride 103, Carbon Dioxide 28.0, Anion Gap 6, BUN 12, Creatinine 1.01, Est GFR (MDRD) Af Amer 98, Est GFR (MDRD) Non-Af 81, BUN/Creatinine Ratio 11.9, Glucose 104, Calcium 8.9 Rhythm: EKG: ECHO: Preserved LV function with mild anteroapical hypokinesis, normal RVSP. Stress Test: Cardiac Cath: PCI: CT Surgery: Holter monitor: EPS: PPM: CXR: Chest CT Scan: Assessment/Plan 1. Acute coronary syndrome: The patient presents with unstable angina, abnormal EKG, wide-complex tachycardia, abnormal troponin of 4.10, with a newly discovered critical lesion in the proximal LAD with successful angioplasty and drug-eluting stenting receiving a 3.0X 20 Promus Synergy stent with an excellent result. At this point the patient will continue baby aspirin for life, Plavix at least for 1 year perhaps 2 given the nature of the LAD stent, and aggressive secondary risk factor modifications with beta-brook, ROBERT inhibitor, and statin. Patient's right groin is clean/dry/intact, without evidence of thrills , bruits or hematoma. Echocardiogram shows intact LV function with mild anteroapical hypokinesis with an EF around 55-60%. Normal right-sided pressures. He is tolerating beta-brook and ROBERT inhibitor well. Patient does not require any additional stress testing or PCI at this time. Patient has had no further ectopy overnight, and would recommend discharge home. He does not require additional stress testing, and will follow-up with me going forward. 2. Hyperlipidemia: Patient's LDL is 70 and HDL is 46. Continue Lipitor 80 mg p.o. nightly. Repeat lipid profile in 6 weeks time. 3. LV dysfunction: The patient has mild LV dysfunction which will hopefully improve with a combination of angioplasty, time, antihypertensive, and cardiac rehab. We will repeat his echocardiogram at the conclusion of cardiac rehab. 4. Thank you very much for the opportunity to put dissipate in the cardiac care of your patient. Patient may be discharged home today. Code Visit Inpatient E&M: 18951 Subs Hosp L2
--- NOTE | 2017-05-15 11:18 | PCM.DC ---
- Discharge Diagnoses Current Active Problems: Current Active and Chronic Problems HLD (hyperlipidemia) (Chronic) ACS (acute coronary syndrome) (Acute) Obesity (BMI 30.0-34.9) (Chronic) Non-STEMI (non-ST elevated myocardial infarction) (Acute) Hypertension (Chronic) Ventricular arrhythmia (Acute) You will use the following diet at home:: Cardiac Discharge Activity: May Not Drive - for 2 days. Resume light work from Thursday Weight Bearing Status: Weight bearing as tolerated Allergies/Adverse Reactions: Allergies No Known Allergies Allergy (Verified 05/12/17 20:39) Medications to take at Discharge Aspirin E.C. [Ecotrin] 81 mg PO DAILY@0800 #30 tab 05/15/17 Atorvastatin Calcium [Lipitor] 80 mg PO QHS #30 tab 05/15/17 Clopidogrel Bisulfate [Plavix] 75 mg PO DAILY #30 tab 05/15/17 Lisinopril [Zestril] 5 mg PO DAILY #30 tab 05/15/17 Metoprolol Tartrate [Lopressor (beta brook)] 12.5 mg PO BID #60 tab 05/15/17 The following prescriptions were given: Aspirin E.C. [Ecotrin] 81 mg PO DAILY@0800 #30 tab Atorvastatin Calcium [Lipitor] 80 mg PO QHS #30 tab Clopidogrel Bisulfate [Plavix] 75 mg PO DAILY #30 tab Lisinopril [Zestril] 5 mg PO DAILY #30 tab Metoprolol Tartrate [Lopressor (beta brook)] 12.5 mg PO BID #60 tab Primary Care Physician: Evert Chatman MD [Primary Care Provider] - Please follow up with your Primary Care Physician in: in 2 weeks Please Follow Up With: Syed Murcia MD When: n 2-3 weeks
--- NOTE | 2017-05-15 11:20 | DS.PCM_ITS ---
Discharge Date and Diagnosis Date of Admission: 05/12/17 Date of Discharge: 05/15/17 - Primary Discharge Diagnosis Active and Suspected Problems ACS (acute coronary syndrome) (Acute) Non-STEMI (non-ST elevated myocardial infarction) (Acute) Ventricular arrhythmia (Acute) Acute coronary syndrome with non-STEMI and wide complex tachycardia/NSVT/ V tach due to new critical descending proximal LAD status post stent: - Secondary Discharge Diagnosis Chronic Problems HLD (hyperlipidemia) (Chronic) Obesity (BMI 30.0-34.9) (Chronic) Hypertension (Chronic) Hospital Course and Treatment Summary of Care Provided: [] This is a 57-year-old gentleman with history of dyslipidemia and obesity was admitted with chest pain/heaviness and wide-complex tachycardia consistent non-STEMI with V. tach. Patient being admitted in ICU. On amiodarone drip. In the morning today he had cardiac cath and he had a critical lesion in proximal LAD for which he had PCI and ULYSSES. Other arteries left circumflex and RCA shows minimal nonobstructive disease. LV function mildly depressed with anterior apical hypokinesis EF 50%. Seen and examined today. General: Alert, Oriented x3, Cooperative HEENT: Atraumatic, PERRLA, EOMI, Normocephalic Neck: Supple, No JVD, Negative Carotid Bruits Lungs: Clear to auscultation, Normal air movement, No rhonchi, No wheeze, No rales Cardiovascular: Regular rate, Regular Rhythm, Normal S1, Normal S2, No murmurs. Normal sinus rhythm on flower stripper. Abdomen: Bowel Sounds Present, Soft, Non Tender, Non-Distended Extremities: No edema, Capillary Refill Less than 3 Seconds Skin: No rashes, No breakdown Musculoskeletal: No Tenderness to Palpation of Joints or Extremities Neurological: Cranial nerves II-XII grossly intact Psych/Mental Status: Normal Affect, Appropriate 1. Acute coronary syndrome with non-STEMI and wide complex tachycardia/NSVT/ V tach due to new critical descending proximal LAD status post stent: Currently, patient is in normal sinus rhythm. 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 EKG in the morning shows T-wave inversion in V2 to V6 leads without chest pain. Amiodarone drip discontinued. Discussed with Dr. Murcia. Patient discharged on on metoprolol, lisinopril, aspirin, Plavix and a statin. Troponin was elevated from 0.08-4.41. 2D echo showed mildly hypokinetic anterior apex. EF 65%. Normal diastolic. Trivial TR with RVSP 35 mmHg. Normal right and left atria. Mitral valve normal. 2. Dyslipidemia: Fasting profile shows total cholesterol 178, triglyceride 96, LDL 109 and HDL 50. 3. Other comorbidities include obesity: DVT prophylaxis: On heparin 5000 subcutaneous twice daily SCDs. Discharge medication reconciliation done. Prescription sent to the patient's pharmacy. Discharge follow-up instructions discussed with the patient. Total time spent, exact 32 minutes on discharge meds reconciliation, examination , review of imaging and blood test and discussion with the patient on follow-up instructions. This note was generated with [employer] dictation software. Every effort was made to ensure accuracy, however computerized theatrical scenic designer mistakes may persist. Discharge Activity: May Not Drive - for 2 days. Resume light work from Thursday Weight Bearing Status: Weight bearing as tolerated Home Medications: Medications to take at Discharge Aspirin E.C. [Ecotrin] 81 mg PO DAILY@0800 #30 tab 05/15/17 Atorvastatin Calcium [Lipitor] 80 mg PO QHS #30 tab 05/15/17 Clopidogrel Bisulfate [Plavix] 75 mg PO DAILY #30 tab 05/15/17 Lisinopril [Zestril] 5 mg PO DAILY #30 tab 05/15/17 Metoprolol Tartrate [Lopressor (beta melany)] 12.5 mg PO BID #60 tab 05/15/17 Following Prescrptions Were Given to Patient: Aspirin E.C. [Ecotrin] 81 mg PO DAILY@0800 #30 tab Atorvastatin Calcium [Lipitor] 80 mg PO QHS #30 tab Clopidogrel Bisulfate [Plavix] 75 mg PO DAILY #30 tab Lisinopril [Zestril] 5 mg PO DAILY #30 tab Metoprolol Tartrate [Lopressor (beta melany)] 12.5 mg PO BID #60 tab Primary Care Physician: Evert Chatman MD [Primary Care Provider] - Please follow up with your Primary Care Physician in: in 2 weeks Please Follow Up With: Syed Murcia MD When: n 2-3 weeks Meaningful Use Info Meaningful Use Diagnoses (Choose all that apply): AMI - AMI Aspirin given w/in 24hrs of arrival?: Yes ASA at discharge?: Yes Statins at discharge?: Yes Ignacio/ARB at discharge?: Yes Beta Melany at discharge?: Yes Done w/ Acute ID measure.: Yes Code Visit Inpatient E&M: [id number] Disch Hosp
== END 2017-05-15 13:23 | disposition home or self-care (01) | DRG 247 ==
LOC: ED 22:05 → ICU 22:10 → PCU 05-14 15:52
PROVIDERS: Internal Medicine Cardiovascular Disease; Admitting Provider Family Medicine; Emergency Provider Emergency Medicine; Family Provider Family Medicine; PCP Family Medicine; Visit Provider Internal Medicine
DX: I21.4 Non-ST elevation (NSTEMI) myocardial infarction (principal); I47.2 Ventricular tachycardia; E66.9 Obesity, unspecified; E78.5 Hyperlipidemia, unspecified; Z68.31 Body mass index [BMI] 31.0-31.9, adult; I10 Essential (primary) hypertension; I25.110 Atherosclerotic heart disease of native coronary artery with unstable angina pectoris; Z82.49 Family history of ischemic heart disease and other diseases of the circulatory system
CPT/HCPCS: 36415; 71046; 80048; 80061; 81001; 82550; 83735; 84484; 85025; 85027; 85347; 85610; 85652; 85730; 86140; 87641; 92928; 93005; 93306; 93458; 99285; J7030; J7050; Q9957; A4216; C1725; C1757; C1769; C1874; C1887; C1894; C9600; Q9967

== ENCOUNTER → 2017-05-29 12:41 | Outpatient (CLI) | payer OTHER, SELFPAY ==
[2017-05-13 11:34] VITALS: BMI 31.3
--- NOTE | 2017-05-29 12:50 | PCM.CR.ITP ---
Exercise - Initial Assessment - Visit Date of Eval: 05/29/17 - Initial Eval - Stages of Change Stages of Change:: Contemplate - Exercise Prescription Mode:: Treadmill, Biodyne, Rower, Airdyne, NuStep, Arm Ergometer Angina with exercise?: No - Hypertension Do any of the following apply?: Yes Resting Blood Pressure:: 100/70 - Intervention Home Exercise/Activity Goal:: Sitting Time <3 hrs/day - Education Goals:: Warm-up, RPE PERI Scale, S/S, Safe Exercise, Self-Monitoring - Exercise Program Goals Exercise Program Goals: Aerobic Activity >30 min, B/P <140/90 Nutrition - Initial Assessment - Program Goals Nutrition Program Goals: LDL <70. Total Cholesterol <200. HDL >45. Triglycerides <150. HgbA1C <7%. BMI <25 - Visit Date of Assessment:: 05/29/17 - Stages of Change Stages of Change:: Contemplate - Diabetes Diabetes:: No - Weight Management Height: 1.75 m Weight:: 89.811 kg Total Score:: 4 - Intervention Referral to dietitian:: No Referral to Diabetic Clinic:: No Will attend diet classes:: Yes - Education Gave educational materials for:: Signs & symptoms of hypoglycemia, Signs & symptoms of hyperglycemia, Relate diabetes to coronary artery disease, Healthy eating Tobacco - Initial Assessment - Program Goals Tobacco Program Goals: Complete smoking cessation. Attend education classes. Improve Knowledge Test score - Stage of Change Stages of Change:: Contemplate - Learning Barriers Total Score:: 8 - Family Support Do you have family support?: Yes - Tobacco Use Tobacco Use: Non-smoker Do you use smokeless tobacco?: No - Intervention Smoking Cessation Referral:: No Individual Education/Counseling:: No Education Schedule Given:: Yes - Education Gave educational material for:: Tobacco triggers, Coronary artery disease, Risk factors, Sexuality, Medical compliance, Cardiac A&P, Angina signs & symptoms Psychosocial - Initial Assess - Target Goals Target Goals: Assess presence or absence of depression. Using a valid screening tool, maximizes coping skills. Positive support system - Stages of Change Stages of Change:: Contemplate - Psychosocial Test Tool Used:: HANDS Depression Questionnaire Total Mood Screening Score:: 9 Self-Efficacy Score:: 6 - Intervention PS - Interventions: Yes Attend Stress Management Classes, Yes Uses Stress Management Skills, No Referral to Mental Health, No Referral to [facility] Case Management, No Referral to Physician - Education Gave educational materials for:: Coping techniques, Signs & symptoms of depression, Stress management, Relaxation techniques - Assistive Devices Assistive Devices:: None Fall Risk Assessed:: Yes Patient Health Questionnaire Initial Assessment 1. Little interest or pleasure in doing things: Several days 2. Feeling down, depressed, or hopeless: More than half the days 3. Trouble falling or staying asleep, or sleeping too much: More than half the days 4. Feeling tired or having little energy: Several days 5. Poor appetite or overeating: Not at all 6. Feeling bad about yourself -- or that you are a failure or have let yourself or your family down: More than half the days 7. Trouble concentrating on things, such as reading the newspaper or watching television: Several days 8. Moving or speaking so slowly that other people could have noticed. Or the opposite - being so fidgety or restless that you have been moving around a lot more than usual: Not at all 9. Thoughts that you would be better off , or of hurting yourself in some way: Not at all How difficult have these problems made it for you to do your work, take care of things at home, or get along with other people?: Somewhat difficult Total Score: 9 Knowledge Test - Check your knowledge Initial The #1 cause of in the [place] each year is:: Heart disease Which of the following is a common treatment for heart disease?: All of the above The arteries that feed the heart are called:: Coronary arteries HDL cholesterol is known as the good cholesterol.: False What disease increases your risk for heart disease?: Diabetes What food product raises blood cholesterol level the most?: Saturated fat The bad cholesterol in the blood is called:: HDL Hypertension is another word for:: High blood pressure A blood pressure reading of 148/88 is considered normal.: False Exercise will only benefit your health when your heart rate reaches a target level.: False Total Score:: 8 Self-Efficacy Initial Assessment We would like to know how confident you are in doing certain activities. Please select your confidence level for:: Select your confidence level for the following using the scale 1-10 where 1 is not at all confident and 10 is totally confident. Your score is the average of all 6 responses. Fatigue: How confident are you that you can keep the fatigue caused by your disease from interfering with the things you want to do? Select Number: 6 Physical Discomfort or Pain: How confident are you that you can keep the physical discomfort or pain of your disease from interfering with the things you want to do? Select Number: 7 Emotional Distress: How confident are you that you can keep the emotional distress caused by your disease from interfering with the things you want to do? Select Number: 4 Other Symptoms or Health Problems: How confident are you that you can keep other symptoms or health problems from interfering with the things you want to do? Select Number: 8 Different Tasks and Activities: How confident are you that you can do the different tasks and activities needed to manage your health condition so as to reduce your need to see a doctor? Select Number: 8 Medication: How confident are you that you can do things other than just taking medication to reduce how much your illness affects your everyday life? Select Number: 8 Total Score:: 6 Nutrition Survey - Nutrition Survey Instructions Scoring Instructions: Scoring is as follows: Yes = 1 points. No = 0 point. Patient score that is >/=12 is considered to be at potential nutritional risk and could benefit from a referral to a registered dietitian. - Nutrition Survey Initial Have you lost >10 lbs over the past 2 months without trying?: No Are you following a special diet at home for diabetes, low fat, or low salt?: Yes Are you interested in meeting with a dietitian for help understanding your diet?: Yes Do you eat less than 3 meals a day?: No Do you eat fatty meats (collado, sausage, ribs, etc), fried foods, desserts, large amounts of salad dressings, margarine, butter, or cheese most days?: No Do you have food allergies? [Enter types in comment field]: No Do you eat in restaurants more than 3 times a week?: Yes Do you season food with salt, seasoning salt, or garlic salt?: No Do you used canned, boxed, frozen meals, or soups, seasoning packets?: Yes Total Score:: 4 Cardiac Rehabilitation Goals - Cardiac Rehab Goals Cardiac Rehabilitation Goals: 1. Maintain the individual as the primary focus of care. 2. To improve the patient's quality of life. 3. Identification of cardiac risk factors and provide cardiac risk factor management. 4. Enhance the psychosocial status of the patient. 5. Reconditioning enough to allow the patient to resume customary activities. 6. Control symptoms of cardiac disease - Scale Scale for measuring improvement of personal goals: Enter appropriate number in Comments. 2 = Unchanged. 3 = Slightly Better. 4 = Moderate Improvement. 5 = Met my Goal Initial Assessment Personal Goals: 30-day Re-assessment: Participate in home exercise program, Get back to work, or to resume activities faster, Improve muscle strength and endurance, Improve diet and eating habits (eat healthier), Control risk factors (learn risk factor modification)
--- NOTE | 2017-05-29 12:51 | PCM.CR.HP2 ---
CR - History & Physical - General Arrival date:: 05/29/17 Arrival time:: 12:51 Date of Admission: 05/13/17 Referring Physician: Dr. Syed Murcia Primary Diagnosis: Z95.5, I21.1, I25.10 05/13/2017 - History of Present Cardiac Event Onset Date: Enter Onset Date of cardiac illnesses in Comment field below Angina:: Yes CABG:: No PTCA:: Yes Valve Replacement/Repair:: No Pacemaker/ICD: No - Medications Home Medications: Ambulatory Orders Medication Instructions Recorded Aspirin E.C. [Ecotrin] 81 mg PO DAILY@0800 #30 tab 05/15/17 atorvastatin 80 mg tablet 80 mg PO QHS #90 tab 05/28/17 clopidogrel 75 mg tablet 75 mg PO DAILY #90 tab 05/28/17 lisinopril 5 mg tablet 5 mg PO DAILY #90 tab 05/28/17 metoprolol tartrate 25 mg tablet 12.5 mg PO BID #90 tab 05/28/17 - Allergies Allergies/Adverse Reactions: Allergies No Known Allergies Allergy (Verified 05/28/17 13:43) - Sleep Disorder Evaluation Hx of Sleep Apnea: No Do you snore loudly (louder than talking or can be heard through closed doors)?: Yes - deny for now. 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 - Family History Summary Family History: Diabetes: Paternal, Heart Disease: Paternal, High Cholesterol: Maternal Review of Systems - Review of Systems Hints: Right click = Denies (Slash). Left click = Reports (Elma) Review of Present Symptoms: Reports: Shortness of Breath at Rest, Shortness of Breath with Exertion, Angina, Heart Arrhythmia/Irregularities, Appetite - Normal, Appetite - Special Diet. Denies: PVD, Operative Discomfort, Wound Healing, Dizziness/Lightheadedness, Fatigue, Sleep - Normal, Sexual Changes Risk Factor Assessment - Chief Complaint Chief Complaint: CP - Pulse Pulse Rate: 54 - SPO2 97% Pulse Rhythm: Regular - Hypertension How long have you been treated?: 2 weeks Blood Pressure Sitting - Left Arm: 100/70 - Diabetes Nutrition Referral for Diabetes: No - Obesity Height: 1.75 m Weight:: 89.811 kg Weight in Pounds: 198.0 lbs Body Mass Index (BMI): 29.2 Nutritional Referral for Obesity: No - Physical Inactivity Physical Inactivity: Reg Exercise 30 min/day - Risk Stratification Risk Guidelines: Lowest Risk: Risk Factor for Smoking, Risk Factor for Diabetes, Risk Factor for Sedentary Lifestyle, Moderate Risk: Risk Factor for Dyslipidemia, Risk Factor for Obesity, Risk Factor for Hypertension, Risk Factor for Depression - For Smoking Smoking Risk Guidelines: Smoking Low Risk: None or quit greater than 6 months ago. Smoking Moderate Risk: Smoker or quit 6 months or less ago. Smoking High Risk: Smoker - For Dyslipidemia Dyslipidemia Risk Guidelines: Low Risk: Moderate Risk: High Risk: 15-25% fat 25.1-29% fat >/= 30% fat. <7% sat fat 7-9% sat fat >9% sat fat. <150 mg chol 150-299 mg chol >/= 300 mg chol. LDL <100 LDL 100-129 LDL >/= 130. Chol/HDL ratio <5.0 Chol/HDL ratio 5.0-6.0 Chol/HDL ratio >6.0. Triglycerides <100 Triglycerides 100-149 Triglycerides >/= 150 - For Diabetes Mellitus Diabetes Risk Guidelines: Diabetes Low Risk: HgA1c <6.5% and/or FBG <120. Diabetes Moderate Risk: HgA1c 6.6-7.9% and/or FBG 120-180. Diabetes High Risk: HgA1c >/= 8% and/or FBG >180 - For Obesity/Overweight Obesity/Overweight Risk Guidelines: Obesity Low Risk: BMI <25.0. Obesity Moderate Risk: BMI 25-29.9. Obesity High Risk: BMI >/= 30.0 - For Hypertension Hypertension Risk Guidelines: Hypertension Low Risk: Systolic <120 and Diastolic <80. Hypertension Moderate Risk: Systolic 120-139 and Diastolic 80-89. Hypertension High Risk: Systolic >/= 140 and Diastolic >/= 90 - For Sedentary Lifestyle Sedentary Lifestyle Risk Guidelines: Sedentary Lifestyle Low Risk: >/= 1,500 kcal/week. Sedentary Lifestyle Moderate Risk: 700-1,499 kcal/week. Sedentary Lifestyle High Risk: < 700 kcal/week - For Depression Depression Risk Guidelines: Depression Low Risk: Not clinically depressed. Depression Moderate Risk: Mildly depressed. 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
--- NOTE | 2017-05-29 13:02 | CR.HP_ITS ---
CR - History & Physical - General Arrival date:: 05/29/17 Arrival time:: 12:51 Date of Admission: 05/13/17 Referring Physician: Dr. Syed Murcia Primary Diagnosis: Z95.5, I21.1, I25.10 05/13/2017 - History of Present Cardiac Event Onset Date: Enter Onset Date of cardiac illnesses in Comment field below Angina:: Yes CABG:: No PTCA:: Yes Valve Replacement/Repair:: No Pacemaker/ICD: No - Medications Home Medications: Ambulatory Orders Medication Instructions Recorded Aspirin E.C. [Ecotrin] 81 mg PO DAILY@0800 #30 tab 05/15/17 atorvastatin 80 mg tablet 80 mg PO QHS #90 tab 05/28/17 clopidogrel 75 mg tablet 75 mg PO DAILY #90 tab 05/28/17 lisinopril 5 mg tablet 5 mg PO DAILY #90 tab 05/28/17 metoprolol tartrate 25 mg tablet 12.5 mg PO BID #90 tab 05/28/17 - Allergies Allergies/Adverse Reactions: Allergies No Known Allergies Allergy (Verified 05/28/17 13:43) - Sleep Disorder Evaluation Hx of Sleep Apnea: No Do you snore loudly (louder than talking or can be heard through closed doors)? : Yes - deny for now. Do you often feel tired/ fatigued/ sleepy during daytime?: No Has anyone observed you stop breathing during sleep?: No History of Hypertension (for STOP score): Yes STOP Results: Positive Advanced Directives - Advanced Directives Power of Cutch Cleaner: No Living Will: No Advance Directives Information Provided: No Advance Directives on File: No DNR Order?:: No Past Medical History - Problems and Co-Morbidities Problems & Co-Morbidities: Dyslipidemia, Hypertension, Depression - mild, Anxiety - mild - Cardiology Procedures/Interventions Cardiology Procedures/Interventions: PCI w/Stenting, Heart Catheterization, Echocardiogram - Past Surgical History Surgical History: appendectomy, - - Appendectomy, L inguinal hernia repair. - Family History Summary Family History: Diabetes: Paternal, Heart Disease: Paternal, High Cholesterol: Maternal Review of Systems - Review of Systems Hints: Right click = Denies ([place]). Left click = Reports ([place]) Review of Present Symptoms: Reports: Shortness of Breath at Rest, Shortness of Breath with Exertion, Angina, Heart Arrhythmia/Irregularities, Appetite - Normal , Appetite - Special Diet. Denies: PVD, Operative Discomfort, Wound Healing, Dizziness/Lightheadedness, Fatigue, Sleep - Normal, Sexual Changes Risk Factor Assessment - Chief Complaint Chief Complaint: CP - Pulse Pulse Rate: 54 - SPO2 97% Pulse Rhythm: Regular - Hypertension How long have you been treated?: 2 weeks Blood Pressure Sitting - Left Arm: 100/70 - Diabetes Nutrition Referral for Diabetes: No - Obesity Height: 1.75 m Weight:: 89.811 kg Weight in Pounds: 198.0 lbs Body Mass Index (BMI): 29.2 Nutritional Referral for Obesity: No - Physical Inactivity Physical Inactivity: Reg Exercise 30 min/day - Risk Stratification Risk Guidelines: Lowest Risk: Risk Factor for Smoking, Risk Factor for Diabetes , Risk Factor for Sedentary Lifestyle, Moderate Risk: Risk Factor for Dyslipidemia, Risk Factor for Obesity, Risk Factor for Hypertension, Risk Factor for Depression - For Smoking Smoking Risk Guidelines: Smoking Low Risk: None or quit greater than 6 months ago. Smoking Moderate Risk: Smoker or quit 6 months or less ago. Smoking High Risk: Smoker - For Dyslipidemia Dyslipidemia Risk Guidelines: Low Risk: Moderate Risk: High Risk: 15-25% fat 25.1-29% fat >/= 30% fat. <7% sat fat 7-9% sat fat >9% sat fat. <150 mg chol 150-299 mg chol >/= 300 mg chol. LDL <100 LDL 100-129 LDL >/= 130. Chol/HDL ratio <5.0 Chol/HDL ratio 5.0-6.0 Chol/HDL ratio >6.0. Triglycerides <100 Triglycerides 100-149 Triglycerides >/= 150 - For Diabetes Mellitus Diabetes Risk Guidelines: Diabetes Low Risk: HgA1c <6.5% and/or FBG <120. Diabetes Moderate Risk: HgA1c 6.6-7.9% and/or FBG 120-180. Diabetes High Risk: HgA1c >/= 8% and/or FBG >180 - For Obesity/Overweight Obesity/Overweight Risk Guidelines: Obesity Low Risk: BMI <25.0. Obesity Moderate Risk: BMI 25-29.9. Obesity High Risk: BMI >/= 30.0 - For Hypertension Hypertension Risk Guidelines: Hypertension Low Risk: Systolic <120 and Diastolic <80. Hypertension Moderate Risk: Systolic 120-139 and Diastolic 80-89. Hypertension High Risk: Systolic >/= 140 and Diastolic >/= 90 - For Sedentary Lifestyle Sedentary Lifestyle Risk Guidelines: Sedentary Lifestyle Low Risk: >/= 1 ,500 kcal/week. Sedentary Lifestyle Moderate Risk: 700-1,499 kcal/week. Sedentary Lifestyle High Risk: < 700 kcal/week - For Depression Depression Risk Guidelines: Depression Low Risk: Not clinically depressed. Depression Moderate Risk: Mildly depressed. Depression High Risk: Clinically depressed - Family History Family History: Family History (Last Updated 05/28/17 @ 13:43 by Kay Branch) Father CAD (coronary artery disease) Diabetes Mother High cholesterol Social History - Smoking History Smoking Status: Never smoker Hx Tobacco Use: No Hx Smoking Exposure: No - Alcohol Use Alcohol Usage: Yes - occas beer - Substance Abuse Hx Substance Use: No - Occupation Occupation (List type of work in comments):: Employed - [employer] Hours worked per day:: 8 - Hobbies, Recreation, Social Activities Hobbies: Exercise Recreational Activities: I am able to engage in all my recreational activities Marital Status - Status Marital Status: Single - Current Living Arrangements Living Environment:: Alone - Safety Do you feel safe in your surroundings?: Yes - Assistance Do you need any assistance at home?: none
[2017-05-29 13:49] VITALS: BP 100/70
[2017-05-29 13:50] VITALS: BP 100/70; PULSE 54; BMI 29.2
== END ==
PROVIDERS: Family Provider Family Medicine; PCP Family Medicine; Visit Provider Internal Medicine Cardiovascular Disease
DX: I25.10 Atherosclerotic heart disease of native coronary artery without angina pectoris (principal); I24.9 Acute ischemic heart disease, unspecified; I25.2 Old myocardial infarction; Z95.5 Presence of coronary angioplasty implant and graft

== ENCOUNTER 2017-06-29 15:15 | Outpatient (RCR) | payer OTHER, SELFPAY ==
[2017-05-13 11:34] VITALS: BMI 31.3
[2017-06-22 10:50] VITALS: BP 124/70; BP 92/60
--- NOTE | 2017-06-22 10:50 | CR.ITP_ITS ---
General Information - General Information Admitting Diagnosis: S/P coronary stent placement - Education/Goals Barriers to Learning: None Individual Counselin-Day Assessment: Abnormal Cholesterol Levels, High Blood Pressure Cardiac Rehabilitation Goals: 1. Maintain the individual as the primary focus of care. 2. To improve the patient's quality of life. 3. Identification of cardiac risk factors and provide cardiac risk factor management. 4. Enhance the psychosocial status of the patient. 5. Reconditioning enough to allow the patient to resume customary activities. 6. Control symptoms of cardiac disease Scale for measuring improvement of personal goals: Enter appropriate number in Comments. 2 = Unchanged. 3 = Slightly Better. 4 = Moderate Improvement. 5 = Met my Goal Personal Goals: 30-day Re-assessment: Improve management of stress and emotions , Improve energy level, Get back to work, or to resume activities faster, Improve knowledge of cardiac disease, Improve muscle strength and endurance Exercise - 30-day Assessment - Visit Date of Eval: 06/22/17 Session #:: 8 - Stages of Change Stages of Change:: Action - Exercise Prescription Mode:: Treadmill, Airdyne, NuStep Frequency (x/week): 3 Duration:: 30 METs - Progression: 0.5-1 MET as tolerated: 5.5 Target Heart Rate:: 129-137 - Hypertension Resting Blood Pressure:: 92/60 Peak Exercise Blood Pressure:: 124/70 Medication Changes:: No - Intervention Home Exercise/Activity Goal:: Sitting Time <3 hrs/day - Education Goals:: Warm-up, RPE PERI Scale, S/S, Safe Exercise, Self-Monitoring - Exercise Program Goals Exercise Program Goals: Aerobic Activity >30 min, B/P <140/90 Nutrition - 30-Day Assessment - Program Goals Nutrition Program Goals: LDL <70. Total Cholesterol <200. HDL >45. Triglycerides <150. HgbA1C <7%. BMI <25 - Visit Date of Eval: 06/22/17 - Stages of Change Stages of Change:: Action - Lipids Has the patient seen the dietitian?: No - Diabetes Diabetes:: No - Weight Management Weight:: 88.677 kg - Intervention Referral to Diabetic Clinic:: No Will attend diet classes:: Yes - Education Attended class for:: Signs & symptoms of hypoglycemia, Signs & symptoms of hyperglycemia, Relate diabetes to coronary artery disease, Healthy eating Tobacco - 30-Day Assessment - Program Goals Tobacco Program Goals: Complete smoking cessation. Attend education classes. Improve Knowledge Test score - Stage of Change Stages of Change:: Action - Learning Barriers Learning Barriers: Participates in education - Family Support Do you have family support?: Yes - Tobacco Use Tobacco Use: Non-smoker Do you use smokeless tobacco?: No - Intervention Smoking Cessation Referral:: No Individual Education/Counseling:: No Education Schedule Given:: Yes - Education Attended class for:: Tobacco triggers, Coronary artery disease, Risk factors, Sexuality, Medical compliance, Cardiac A&P, Angina signs & symptoms Psychosocial - Initial Assess - Target Goals Target Goals: Assess presence or absence of depression. Using a valid screening tool, maximizes coping skills. Positive support system - Psychosocial Test Tool Used:: HANDS Depression Questionnaire - Assistive Devices Fall Risk Assessed:: Yes Psychosocial - 30-Day Assess - Target Goals Target Goals: Assess presence or absence of depression. Using a valid screening tool, maximizes coping skills. Positive support system - Stages of Change Stages of Change:: Action - Psychosocial Test Tool Used:: HANDS Depression Questionnaire - Intervention PS - Interventions: Yes Attend Stress Management Classes, Yes Uses Stress Management Skills, No Referral to Mental Health, No Referral to [facility] Case Management, No Referral to Physician - Education Attended classes for:: Coping techniques, Signs & symptoms of depression, Stress management, Relaxation techniques - Assistive Devices Assistive Devices:: None Fall Risk Assessed:: Yes Patient Health Questionnaire 30-Day Re-eval Assessment 1. Little interest or pleasure in doing things: Several days 2. Feeling down, depressed, or hopeless: More than half the days 3. Trouble falling or staying asleep, or sleeping too much: More than half the days 4. Feeling tired or having little energy: Several days 5. Poor appetite or overeating: Not at all 6. Feeling bad about yourself -- or that you are a failure or have let yourself or your family down: More than half the days 7. Trouble concentrating on things, such as reading the newspaper or watching television: Several days 8. Moving or speaking so slowly that other people could have noticed. Or the opposite - being so fidgety or restless that you have been moving around a lot more than usual: Not at all 9. Thoughts that you would be better off , or of hurting yourself in some way: Not at all How difficult have these problems made it for you to do your work, take care of things at home, or get along with other people?: Somewhat difficult Total Score: 9 Self-Efficacy 30-Day Re-eval Assessment We would like to know how confident you are in doing certain activities. Please select your confidence level for:: Select your confidence level for the following using the scale 1-10 where 1 is not at all confident and 10 is totally confident. Your score is the average of all 6 responses. Fatigue: How confident are you that you can keep the fatigue caused by your disease from interfering with the things you want to do? Select Number: 6 Physical Discomfort or Pain: How confident are you that you can keep the physical discomfort or pain of your disease from interfering with the things you want to do? Select Number: 7 Emotional Distress: How confident are you that you can keep the emotional distress caused by your disease from interfering with the things you want to do? Select Number: 4 Other Symptoms or Health Problems: How confident are you that you can keep other symptoms or health problems from interfering with the things you want to do? Select Number: 8 Different Tasks and Activities: How confident are you that you can do the different tasks and activities needed to manage your health condition so as to reduce your need to see a doctor? Select Number: 8 Medication: How confident are you that you can do things other than just taking medication to reduce how much your illness affects your everyday life? Select Number: 6 Total Score:: 6
== END 2017-06-29 23:59 ==
LOC: CR 15:15
PROVIDERS: Family Provider Family Medicine; PCP Family Medicine; Visit Provider Internal Medicine Cardiovascular Disease
DX: Z95.5 Presence of coronary angioplasty implant and graft (principal); I25.10 Atherosclerotic heart disease of native coronary artery without angina pectoris; I24.9 Acute ischemic heart disease, unspecified; I21.4 Non-ST elevation (NSTEMI) myocardial infarction
CPT/HCPCS: 93798

== ENCOUNTER → 2017-07-03 11:10 | Outpatient (CLI) | payer OTHER, SELFPAY ==
[2017-05-13 11:34] VITALS: BMI 31.3
[2017-07-03 12:36] LABS: AST(SGOT) 20 U/L (15-37); Alanine Aminotransfer ALT/SGPT 41 U/L (16-61); Albumin, Serum 4.2 g/dL (3.2-5.0); Alkaline Phosphatase 67 U/L (45-117); Bilirubin, Direct 0.18 mg/dL (0.00-0.30); Cholesterol 83 mg/dL (200); Globulin 2.9 g/dL (2.2-4.2); High Density Lipoprotein 52 mg/dL; Protein, Total 7.1 g/dL (6.4-8.2); Triglycerides 61 mg/dL; Very Low Density Lipoprotein 12 mg/dL (5-40)
== END ==
PROVIDERS: Family Provider Family Medicine; PCP Family Medicine; Visit Provider Physician Assistant Medical
DX: E78.5 Hyperlipidemia, unspecified (principal); I25.10 Atherosclerotic heart disease of native coronary artery without angina pectoris
CPT/HCPCS: 36415; 80061; 80076

== ENCOUNTER 2017-07-29 15:15 | Outpatient (RCR) | payer OTHER, SELFPAY ==
[2017-05-13 11:34] VITALS: BMI 31.3
[2017-06-30 00:12] VITALS: BP 124/70; BP 92/60
--- NOTE | 2017-07-22 14:06 | PCM.CR.ITP ---
General Information - General Information Admitting Diagnosis: staqtus post coronary stent - Education/Goals Barriers to Learning: None Individual Counselin-Day Assessment: Abnormal Cholesterol Levels, High Blood Pressure, Stress Cardiac Rehabilitation Goals: 1. Maintain the individual as the primary focus of care. 2. To improve the patient's quality of life. 3. Identification of cardiac risk factors and provide cardiac risk factor management. 4. Enhance the psychosocial status of the patient. 5. Reconditioning enough to allow the patient to resume customary activities. 6. Control symptoms of cardiac disease Scale for measuring improvement of personal goals: Enter appropriate number in Comments. 2 = Unchanged. 3 = Slightly Better. 4 = Moderate Improvement. 5 = Met my Goal Personal Goals: 60-day Re-assessment: Improve management of stress and emotions, Improve energy level, Get back to work, or to resume activities faster, Improve knowledge of cardiac disease, Improve muscle strength and endurance Exercise - 60-Day Assessment - Visit Date of Eval: 07/22/17 Session #:: 19 - 89.7% compliance missed 2 scheduled sessions. - Stages of Change Stages of Change:: Action - Exercise Prescription Mode:: Treadmill, Rower, Airdyne, NuStep Frequency (x/week): 3 Duration:: 30 METs: 8.8 increased 151% from initial Target Heart Rate:: 129-137 - Hypertension Resting Blood Pressure:: 102/62 Peak Exercise Blood Pressure:: 142/62 Medication Changes:: No - Intervention Home Exercise/Activity Goal:: Moderate Exercise 30 min/day x 5 days/wk - Education Goals:: Warm-up, RPE PERI Scale, S/S, Safe Exercise, Self-Monitoring - Exercise Program Goals Exercise Program Goals: Aerobic Activity >30 min Tobacco - 60-Day Assessment - Program Goals Tobacco Program Goals: Complete smoking cessation. Attend education classes. Improve Knowledge Test score - Stage of Change Stages of Change:: Action - Learning Barriers Learning Barriers: Participates in education - Family Support Do you have family support?: Yes - Tobacco Use Tobacco Use: Non-smoker - Intervention Education Schedule Given:: Yes - Education Attended class for:: Coronary artery disease, Risk factors, Sexuality, Medical compliance, Cardiac A&P, Angina signs & symptoms Psychosocial - 60-Day Assess - Target Goals Target Goals: Assess presence or absence of depression. Using a valid screening tool, maximizes coping skills. Positive support system - Stages of Change Stages of Change:: Action - Psychosocial Test Tool Used:: HANDS Depression Questionnaire - Intervention PS - Interventions: Yes Attend Stress Management Classes, Yes Uses Stress Management Skills, No Referral to Mental Health, No Referral to [facility] Case Management, No Referral to Physician - Education Attended classes for:: Coping techniques, Signs & symptoms of depression, Stress management, Relaxation techniques - Patient/Program Goal Preventative Medication(s):: Aspirin, Clopidogrel, Beta brook, Statin/lipid - Assistive Devices Assistive Devices:: None Fall Risk Assessed:: Yes Patient Health Questionnaire 60-Day Re-eval Assessment 1. Little interest or pleasure in doing things: Not at all 2. Feeling down, depressed, or hopeless: Several days 3. Trouble falling or staying asleep, or sleeping too much: Several days 4. Feeling tired or having little energy: Not at all 5. Poor appetite or overeating: Not at all 6. Feeling bad about yourself -- or that you are a failure or have let yourself or your family down: Not at all 7. Trouble concentrating on things, such as reading the newspaper or watching television: Not at all 8. Moving or speaking so slowly that other people could have noticed. Or the opposite - being so fidgety or restless that you have been moving around a lot more than usual: Not at all 9. Thoughts that you would be better off , or of hurting yourself in some way: Not at all How difficult have these problems made it for you to do your work, take care of things at home, or get along with other people?: Not difficult at all Total Score: 2 Self-Efficacy 60-Day Re-eval Assessment We would like to know how confident you are in doing certain activities. Please select your confidence level for:: Select your confidence level for the following using the scale 1-10 where 1 is not at all confident and 10 is totally confident. Your score is the average of all 6 responses. Fatigue: How confident are you that you can keep the fatigue caused by your disease from interfering with the things you want to do? Select Number: 10 Physical Discomfort or Pain: How confident are you that you can keep the physical discomfort or pain of your disease from interfering with the things you want to do? Select Number: 10 Emotional Distress: How confident are you that you can keep the emotional distress caused by your disease from interfering with the things you want to do? Select Number: 10 Other Symptoms or Health Problems: How confident are you that you can keep other symptoms or health problems from interfering with the things you want to do? Select Number: 10 Different Tasks and Activities: How confident are you that you can do the different tasks and activities needed to manage your health condition so as to reduce your need to see a doctor? Select Number: 10 Medication: How confident are you that you can do things other than just taking medication to reduce how much your illness affects your everyday life? Select Number: 10 Total Score:: 10
[2017-07-22 14:14] VITALS: BP 102/62; BP 142/62
== END 2017-07-30 23:59 ==
LOC: CR 15:15
PROVIDERS: Family Provider Family Medicine; PCP Family Medicine; Visit Provider Internal Medicine Cardiovascular Disease
DX: Z95.5 Presence of coronary angioplasty implant and graft (principal); I25.10 Atherosclerotic heart disease of native coronary artery without angina pectoris; I24.9 Acute ischemic heart disease, unspecified; I21.4 Non-ST elevation (NSTEMI) myocardial infarction
CPT/HCPCS: 93798

== ENCOUNTER 2017-08-26 15:15 | Outpatient (RCR) | payer OTHER, SELFPAY ==
[2017-05-13 11:34] VITALS: BMI 31.3
[2017-07-31 00:18] VITALS: BP 102/62; BP 142/62
--- NOTE | 2017-08-21 08:12 | CR.ITP_ITS ---
Exercise - 90-Day Assessment - Visit Date of Eval: 08/21/17 Session #:: 27 - Stages of Change Stages of Change:: Action - Exercise Prescription Mode:: Treadmill, Airdyne, NuStep Frequency (x/week): 3 Duration:: 30 METs: 9 157% increase Target Heart Rate:: 129-137 - Hypertension Resting Blood Pressure:: 100/56 Peak Exercise Blood Pressure:: 148/70 Medication Changes:: No - Intervention Home Exercise/Activity Goal:: Sitting Time <3 hrs/day - Education Goals:: Warm-up, RPE PERI Scale, S/S, Safe Exercise, Self-Monitoring - Exercise Program Goals Exercise Program Goals: Aerobic Activity >30 min, B/P <130/80 Nutrition - 90-Day Assessment - Program Goals Nutrition Program Goals: LDL <70. Total Cholesterol <200. HDL >45. Triglycerides <150. HgbA1C <7%. BMI <25 - Visit Date of Eval: 08/21/17 - Stages of Change Stages of Change:: Action - Lipids Has the patient seen the dietitian?: No - Diabetes Diabetes:: No - Weight Management Weight:: 85.049 kg - Intervention Referral to dietitian:: No Referral to Diabetic Clinic:: No Will attend diet classes:: Yes - Education Attended class for:: Signs & symptoms of hypoglycemia, Signs & symptoms of hyperglycemia, Relate diabetes to coronary artery disease, Healthy eating Tobacco - 90-Day Assessment - Program Goals Tobacco Program Goals: Complete smoking cessation. Attend education classes. Improve Knowledge Test score - Stage of Change Stages of Change:: Action - Learning Barriers Learning Barriers: Participates in education - Family Support Do you have family support?: Yes - Tobacco Use Tobacco Use: Non-smoker Do you use smokeless tobacco?: No - Intervention Smoking Cessation Referral:: No Individual Education/Counseling:: No Education Schedule Given:: Yes - Education Attended class for:: Tobacco triggers, Coronary artery disease, Risk factors, Sexuality, Medical compliance, Cardiac A&P, Angina signs & symptoms Psychosocial - Initial Assess - Target Goals Target Goals: Assess presence or absence of depression. Using a valid screening tool, maximizes coping skills. Positive support system - Psychosocial Test Tool Used:: HANDS Depression Questionnaire - Assistive Devices Fall Risk Assessed:: Yes Psychosocial - 90-Day Assess - Target Goals Target Goals: Assess presence or absence of depression. Using a valid screening tool, maximizes coping skills. Positive support system - Stages of Change Stages of Change:: Action - Psychosocial Test Tool Used:: HANDS Depression Questionnaire - Intervention PS - Interventions: Yes Attend Stress Management Classes, Yes Uses Stress Management Skills, No Referral to Mental Health, No Referral to [facility] Case Management, No Referral to Physician - Education Attended classes for:: Coping techniques, Signs & symptoms of depression, Stress management, Relaxation techniques - Assistive Devices Fall Risk Assessed:: Yes Patient Health Questionnaire 90-Day Re-eval Assessment 1. Little interest or pleasure in doing things: Several days 2. Feeling down, depressed, or hopeless: Several days 3. Trouble falling or staying asleep, or sleeping too much: Several days 4. Feeling tired or having little energy: Several days 5. Poor appetite or overeating: Not at all 6. Feeling bad about yourself -- or that you are a failure or have let yourself or your family down: Several days 7. Trouble concentrating on things, such as reading the newspaper or watching television: Not at all 8. Moving or speaking so slowly that other people could have noticed. Or the opposite - being so fidgety or restless that you have been moving around a lot more than usual: Not at all 9. Thoughts that you would be better off , or of hurting yourself in some way: Not at all Total Score: 5 Self-Efficacy 90-Day Re-eval Assessment We would like to know how confident you are in doing certain activities. Please select your confidence level for:: Select your confidence level for the following using the scale 1-10 where 1 is not at all confident and 10 is totally confident. Your score is the average of all 6 responses. Fatigue: How confident are you that you can keep the fatigue caused by your disease from interfering with the things you want to do? Select Number: 8 Physical Discomfort or Pain: How confident are you that you can keep the physical discomfort or pain of your disease from interfering with the things you want to do? Select Number: 8 Emotional Distress: How confident are you that you can keep the emotional distress caused by your disease from interfering with the things you want to do? Select Number: 8 Other Symptoms or Health Problems: How confident are you that you can keep other symptoms or health problems from interfering with the things you want to do? Select Number: 8 Different Tasks and Activities: How confident are you that you can do the different tasks and activities needed to manage your health condition so as to reduce your need to see a doctor? Select Number: 8 Medication: How confident are you that you can do things other than just taking medication to reduce how much your illness affects your everyday life? Select Number: 8 Total Score:: 8
[2017-08-21 08:13] VITALS: BP 100/56; BP 148/70
== END 2017-08-29 23:59 ==
LOC: CR 15:15
PROVIDERS: Family Provider Family Medicine; PCP Family Medicine; Visit Provider Internal Medicine Cardiovascular Disease
DX: I25.10 Atherosclerotic heart disease of native coronary artery without angina pectoris (principal); Z95.5 Presence of coronary angioplasty implant and graft; I24.9 Acute ischemic heart disease, unspecified; I25.2 Old myocardial infarction
CPT/HCPCS: 93798

== ENCOUNTER 2017-09-14 15:15 | Outpatient (RCR) | payer OTHER, SELFPAY ==
[2017-05-13 11:34] VITALS: BMI 31.3
[2017-08-30 00:22] VITALS: BP 100/56; BP 148/70
== END 2017-09-29 23:59 ==
LOC: CR 15:15
PROVIDERS: Family Provider Family Medicine; PCP Family Medicine; Visit Provider Internal Medicine Cardiovascular Disease
DX: Z95.5 Presence of coronary angioplasty implant and graft (principal); I25.10 Atherosclerotic heart disease of native coronary artery without angina pectoris; I24.9 Acute ischemic heart disease, unspecified; I21.4 Non-ST elevation (NSTEMI) myocardial infarction
CPT/HCPCS: 93798

== ENCOUNTER 2017-09-15 06:26 | Outpatient (RCR) | payer OTHER, SELFPAY ==
[2017-05-13 11:34] VITALS: BMI 31.3
[2017-09-22 12:56] VITALS: BP 106/48; BP 140/70
--- NOTE | 2017-09-22 12:56 | CR.ITP_ITS ---
Exercise - Final/Discharge - Visit Date of Eval: 09/22/17 - completed CR 09/14/17 Session #:: 36 - Stages of Change Stages of Change:: Action - Exercise Prescription Mode:: Treadmill, Rower, Airdyne, NuStep Frequency (x/week): 3 Duration:: 30 METs: 9 Target Heart Rate:: 137-150 Max HR 145 - Hypertension Do any of the following apply?: Yes, Medication, Diet Resting Blood Pressure:: 106/48 Peak Exercise Blood Pressure:: 140/70 - Intervention Home Exercise/Activity Goal:: Moderate Exercise 30 min/day x 5 days/wk - Education Goal Progress: Goal Met - Exercise Program Goals Exercise Program Goals: Aerobic Activity >30 min Nutrition - Final Assessment - Program Goals Nutrition Program Goals: LDL <70. Total Cholesterol <200. HDL >45. Triglycerides <150. HgbA1C <7%. BMI <25 - Visit Date of Eval: 09/22/17 - Stages of Change Stages of Change:: Action - Diabetes Diabetes:: No - Weight Management Height: 5 ft 9 in Weight:: 185 lb Body Fat %:: 29.2 - Intervention Referral to dietitian:: No Referral to Diabetic Clinic:: No Will attend diet classes:: Yes - Education Education Goal Reached?: Yes Tobacco - Final Assessment - Program Goals Tobacco Program Goals: Complete smoking cessation. Attend education classes. Improve Knowledge Test score - Stage of Change Stages of Change:: Action - Family Support Do you have family support?: Yes - Tobacco Use Tobacco Use: Non-smoker - Intervention Education Schedule Given:: Yes - Education Education Goal Reached?: Yes Psychosocial - Initial Assess - Target Goals Target Goals: Assess presence or absence of depression. Using a valid screening tool, maximizes coping skills. Positive support system - Psychosocial Test Tool Used:: HANDS Depression Questionnaire - Assistive Devices Fall Risk Assessed:: Yes Psychosocial - Final Assessmen - Target Goals Target Goals: Assess presence or absence of depression. Using a valid screening tool, maximizes coping skills. Positive support system - Stages of Change Stages of Change:: Action - Psychosocial Test Tool Used:: HANDS Depression Questionnaire - Intervention PS - Interventions: Yes Attend Stress Management Classes, Yes Uses Stress Management Skills, No Referral to Mental Health, No Referral to [facility] Case Management, No Referral to Physician - Education Education Goal Reached?: Yes - Patient/Program Goal Preventative Medication(s):: Aspirin, Clopidogrel, Beta brook, Statin/lipid - Assistive Devices Assistive Devices:: None Fall Risk Assessed:: Yes Patient Health Questionnaire Discharge Assessment 1. Little interest or pleasure in doing things: Not at all 2. Feeling down, depressed, or hopeless: Not at all 3. Trouble falling or staying asleep, or sleeping too much: Not at all 4. Feeling tired or having little energy: Not at all 5. Poor appetite or overeating: Not at all 6. Feeling bad about yourself -- or that you are a failure or have let yourself or your family down: Not at all 7. Trouble concentrating on things, such as reading the newspaper or watching television: Not at all 8. Moving or speaking so slowly that other people could have noticed. Or the opposite - being so fidgety or restless that you have been moving around a lot more than usual: Not at all 9. Thoughts that you would be better off , or of hurting yourself in some way: Not at all Total Score: 0 MADDIE-Q SV Test - Statements CAD is a disease of the arteries in the heart: False Examples of risk factors for heart disease: True Angina is chest pain or discomfort: True The benefits of resistance training include: True Eating more meat and dairy products: False Anti-platelet medications such as aspirin are important: True The only effective way to manage stress: False An exercise warm-up slowly increases heart rate: True Prepared, processed foods usually have high sodium: True Depression is common after a heart attack: True The statin medications lower cholesterol: True To control blood pressure, lower the amount of sodium: True If someone gets chest discomfort during walking: False Transfats are partially hydrogenated vegetable oils: True Sleep apnea that is not treated increases the risk: False To control cholesterol, one should become a vegetarian: False Someone knows if he/she is exercising at the right level: True Diabetes cannot be prevented with exercise & health eating: False Stress is a large risk for heart attack: True A diet that can help lower blood pressure is rich in: True - Total Score Total Correct Responses: 20 Self-Efficacy Discharge Assessment We would like to know how confident you are in doing certain activities. Please select your confidence level for:: Select your confidence level for the following using the scale 1-10 where 1 is not at all confident and 10 is totally confident. Your score is the average of all 6 responses. Fatigue: How confident are you that you can keep the fatigue caused by your disease from interfering with the things you want to do? Select Number: 10 Physical Discomfort or Pain: How confident are you that you can keep the physical discomfort or pain of your disease from interfering with the things you want to do? Select Number: 10 Emotional Distress: How confident are you that you can keep the emotional distress caused by your disease from interfering with the things you want to do? Select Number: 10 Other Symptoms or Health Problems: How confident are you that you can keep other symptoms or health problems from interfering with the things you want to do? Select Number: 10 Different Tasks and Activities: How confident are you that you can do the different tasks and activities needed to manage your health condition so as to reduce your need to see a doctor? Select Number: 10 Medication: How confident are you that you can do things other than just taking medication to reduce how much your illness affects your everyday life? Select Number: 10 Total Score:: 10 Nutrition Survey - Nutrition Survey Instructions Scoring Instructions: Scoring is as follows: Yes = 1 points. No = 0 point. Patient score that is >/=12 is considered to be at potential nutritional risk and could benefit from a referral to a registered dietitian. - Nutrition Survey Discharge Have you lost >10 lbs over the past 2 months without trying?: No Are you following a special diet at home for diabetes, low fat, or low salt?: Yes - Low fat, low sodium, 1800 calorie cardiac diet Are you interested in meeting with a dietitian for help understanding your diet? : No Do you eat less than 3 meals a day?: No Do you eat fatty meats (collado, sausage, ribs, etc), fried foods, desserts, large amounts of salad dressings, margarine, butter, or cheese most days?: No Do you have food allergies? [Enter types in comment field]: No Do you eat in restaurants more than 3 times a week?: No Do you season food with salt, seasoning salt, or garlic salt?: No Do you used canned, boxed, frozen meals, or soups, seasoning packets?: No Total Score:: 1
== END 2017-09-29 23:59 ==
LOC: CR 06:26
PROVIDERS: Family Provider Family Medicine; PCP Family Medicine; Visit Provider Internal Medicine Cardiovascular Disease
DX: I25.10 Atherosclerotic heart disease of native coronary artery without angina pectoris (principal); I24.9 Acute ischemic heart disease, unspecified; I21.4 Non-ST elevation (NSTEMI) myocardial infarction; Z95.5 Presence of coronary angioplasty implant and graft

== ENCOUNTER 2017-10-13 06:00 | Outpatient (RCR) | payer SELFPAY ==
[2017-05-13 11:34] VITALS: BMI 31.3
[2017-09-30 01:27] VITALS: BP 106/48; BP 140/70
== END 2017-10-30 23:59 ==
LOC: CR 06:00
PROVIDERS: Family Provider Family Medicine; PCP Family Medicine; Visit Provider Internal Medicine Cardiovascular Disease
DX: I25.10 Atherosclerotic heart disease of native coronary artery without angina pectoris (principal); I24.9 Acute ischemic heart disease, unspecified; I21.4 Non-ST elevation (NSTEMI) myocardial infarction; Z95.5 Presence of coronary angioplasty implant and graft

== ENCOUNTER 2017-11-03 06:52 | Outpatient (RCR) | payer SELFPAY ==
[2017-05-13 11:34] VITALS: BMI 31.3
[2017-10-31 01:28] VITALS: BP 106/48; BP 140/70
== END 2017-11-29 23:59 ==
LOC: CR 06:52
PROVIDERS: Family Provider Family Medicine; PCP Family Medicine; Visit Provider Internal Medicine Cardiovascular Disease
DX: I25.10 Atherosclerotic heart disease of native coronary artery without angina pectoris (principal); I24.9 Acute ischemic heart disease, unspecified; I21.4 Non-ST elevation (NSTEMI) myocardial infarction; Z95.5 Presence of coronary angioplasty implant and graft

== ENCOUNTER 2017-12-31 07:30 | Outpatient (RCR) | payer SELFPAY ==
[2017-05-13 11:34] VITALS: BMI 31.3
[2017-11-30 01:07] VITALS: BP 106/48; BP 140/70
== END 2018-01-29 23:59 ==
LOC: CR 07:30
PROVIDERS: Family Provider Family Medicine; PCP Family Medicine; Referring Provider Internal Medicine Cardiovascular Disease; Visit Provider Internal Medicine Cardiovascular Disease
DX: Z00.00 Encounter for general adult medical examination without abnormal findings (principal)

== ENCOUNTER 2018-02-09 06:00 | Outpatient (RCR) | payer SELFPAY ==
[2017-05-13 11:34] VITALS: BMI 31.3
[2018-01-30 00:15] VITALS: BP 106/48; BP 140/70
== END 2018-03-01 23:59 ==
LOC: CR 06:00
PROVIDERS: Family Provider Family Medicine; PCP Family Medicine; Referring Provider Internal Medicine Cardiovascular Disease; Visit Provider Internal Medicine Cardiovascular Disease
DX: Z00.00 Encounter for general adult medical examination without abnormal findings (principal)

== ENCOUNTER 2018-03-04 07:29 | Outpatient (RCR) | payer SELFPAY ==
[2017-05-13 11:34] VITALS: BMI 31.3
== END 2018-04-01 23:59 ==
LOC: CR 07:29
PROVIDERS: Family Provider Family Medicine; PCP Family Medicine; Referring Provider Internal Medicine Cardiovascular Disease; Visit Provider Internal Medicine Cardiovascular Disease
DX: Z00.00 Encounter for general adult medical examination without abnormal findings (principal)

== ENCOUNTER → 2018-12-01 12:01 | Outpatient (CLI) | payer OTHER, SELFPAY ==
[2017-05-13 11:34] VITALS: BMI 31.3
[2018-11-22 16:01] VITALS: BMI 28.8
[2018-12-01 14:52] LABS: AST(SGOT) 24 U/L (15-37); Alanine Aminotransfer ALT/SGPT 38 U/L (16-61); Albumin, Serum 4.2 g/dL (3.2-5.0); Alkaline Phosphatase 67 U/L (45-117); Bilirubin, Direct 0.19 mg/dL (0.00-0.30); Cholesterol 94 mg/dL (200); Globulin 2.9 g/dL (2.2-4.2); High Density Lipoprotein 57 mg/dL; Protein, Total 7.1 g/dL (6.4-8.2); Triglycerides 51 mg/dL; Very Low Density Lipoprotein 10 mg/dL (5-40)
== END ==
PROVIDERS: Family Provider Family Medicine; PCP Family Medicine; Referring Provider Internal Medicine Cardiovascular Disease; Visit Provider Internal Medicine Cardiovascular Disease
DX: E78.00 Pure hypercholesterolemia, unspecified (principal)
CPT/HCPCS: 36415; 80061; 80076

== ENCOUNTER → 2018-12-15 09:48 | Outpatient (CLI) | payer OTHER, SELFPAY ==
[2017-05-13 11:34] VITALS: BMI 31.3
[2018-11-22 16:01] VITALS: BMI 28.8
--- NOTE | 2018-12-15 09:52 | STEWCON_ITS ---
Reason For Study: CAD/ASHD Stress Results Protocol: Rajat Protocol WITH DEFINITY Maximum Predicted HR: 161 bpm Target HR: 137 bpm % Maximum Predicted HR: 92 % DurationHeart Rate Stage (mm:ss) (bpm) BP Comment BASELINE 71 112/822 CC DEFINITY STAGE 1 3:00 93 132/62 STAGE 2 3:00 108 130/60 STAGE 3 3:00 127 144/62 STAGE 4 3:00 148 160/702 CC DEFINITY RECOVERY 91 122/78 Stress Duration: 12:00 mm:ss Maximum Stress HR: 148 bpm Baseline Echocardiogram Findings The estimated ejection fraction is 65 %. Stress Echo Wall motion Data Resting WM Intermediate WM Stress WM Resting Wall Motion Wall Motion Stress No regional wall motion No regional wall motion abnormalities noted. abnormalities noted. EKG Data The baseline ECG displays normal sinus rhythm. The patient exercised according to the regular Rajat protocol for a total duration of 12:00. The maximum heart rate attained was 150 beats per minute. This was 93% of maximum predicted heart rate. The patient exercised into stage 5 of the Rajat protocol. During stress, there were no ST or T wave changes noted to suggest ischemia. During dobutamine infusion, there were no ST or T wave changes noted to suggest ischemia. No arrhythmias noted. No clinical angina was noted. Interpretation Summary The estimated ejection fraction is 65 %. Normal, adequate, treadmill echocardiogram. Negative for ischemia by EKG and echocardiographic criteria. No anginal symptoms noted. No arrhythmias noted. Appropriate blood pressure response to exercise. Above average exercise capacity for age. Final LVEF is 75%. Decreased sensitivity due to poor echo windows requiring Definity agent. Test terminated due to fatigue and target heart rate achieved. No complications. The study was technically difficult. Contrast injection was performed. Ordering Physician: Syed Murcia MD Referring Physician: Syed Murcia Performed By: Dora Talavera, STEVE, RVT
== END ==
PROVIDERS: Family Provider Family Medicine; PCP Family Medicine; Referring Provider Internal Medicine Cardiovascular Disease; Visit Provider Internal Medicine Cardiovascular Disease
DX: I25.10 Atherosclerotic heart disease of native coronary artery without angina pectoris (principal); Z95.5 Presence of coronary angioplasty implant and graft; E78.5 Hyperlipidemia, unspecified; I25.2 Old myocardial infarction; I49.9 Cardiac arrhythmia, unspecified
CPT/HCPCS: 93017; 93350; Q9957; A4216; C8928

== ENCOUNTER → 2019-06-03 12:59 | Outpatient (CLI) | payer OTHER, SELFPAY ==
[2017-05-13 11:34] VITALS: BMI 31.3
[2018-11-22 16:01] VITALS: BMI 28.8
[2019-06-03 15:28] LABS: ALB/GLOB Ratio 1.4 RATIO (0.9-2.4); AST(SGOT) 21 U/L (15-37); Alanine Aminotransfer ALT/SGPT 40 U/L (16-61); Albumin, Serum 4.1 g/dL (3.2-5.0); Alkaline Phosphatase 76 U/L (45-117); Anion Gap 6 (5-15); BUN 14 mg/dL (7-18); BUN/Creat Ratio 13.9 RATIO (10-20); Calcium,Total 8.8 mg/dL (8.5-10.1); Chloride 102 mmol/L (98-107); Cholesterol 98 mg/dL (200); Creatinine, Serum 1.01 mg/dL (0.70-1.30); EST Glomerular Filtration Rate 80 mL/min (>60); Est Glom Filt Rate - Afr Amer 97 mL/min (>60); Glucose 102 mg/dL (74-106); High Density Lipoprotein 54 mg/dL; Potassium 4.3 mmol/L (3.5-5.1); Protein, Total 7.1 g/dL (6.4-8.2); Sodium Level 137 mmol/L (136-145); Triglycerides 75 mg/dL; Very Low Density Lipoprotein 15 mg/dL (5-40)
== END ==
PROVIDERS: PCP Family Medicine; Referring Provider Internal Medicine Cardiovascular Disease; Visit Provider Internal Medicine Cardiovascular Disease
DX: I25.10 Atherosclerotic heart disease of native coronary artery without angina pectoris (principal); E78.00 Pure hypercholesterolemia, unspecified; E78.5 Hyperlipidemia, unspecified
CPT/HCPCS: 36415; 80053; 80061

== ENCOUNTER → 2020-01-30 11:18 | Outpatient (CLI) | payer OTHER, SELFPAY ==
[2017-05-13 11:34] VITALS: BMI 31.3
[2019-07-05 09:03] VITALS: BMI 28.8
[2020-01-30 15:42] LABS: AST(SGOT) 24 U/L (15-37); Alanine Aminotransfer ALT/SGPT 49 U/L (16-61); Alkaline Phosphatase 78 U/L (45-117); Bilirubin, Direct 0.32 mg/dL (0.00-0.30); Cholesterol 117 mg/dL (200); High Density Lipoprotein 58 mg/dL; Triglycerides 76 mg/dL; Very Low Density Lipoprotein 15 mg/dL (5-40)
== END ==
PROVIDERS: PCP Family Medicine; Referring Provider Internal Medicine Cardiovascular Disease; Visit Provider Internal Medicine Cardiovascular Disease
DX: E78.5 Hyperlipidemia, unspecified (principal)
CPT/HCPCS: 36415; 80061; 80076

== ENCOUNTER → 2020-07-24 12:01 | Outpatient (CLI) | payer OTHER, SELFPAY ==
[2017-05-13 11:34] VITALS: BMI 31.3
[2020-02-02 10:07] VITALS: BMI 29.2
[2020-07-24 16:36] LABS: AST(SGOT) 24 U/L (15-37); Alanine Aminotransfer ALT/SGPT 44 U/L (16-61); Albumin, Serum 4.2 g/dL (3.2-5.0); Alkaline Phosphatase 72 U/L (45-117); Bilirubin, Direct 0.21 mg/dL (0.00-0.30); Cholesterol 111 mg/dL (200); Globulin 3.2 g/dL (2.2-4.2); Glucose 95 mg/dL (74-106); High Density Lipoprotein 61 mg/dL; Protein, Total 7.4 g/dL (6.4-8.2); Triglycerides 59 mg/dL; Very Low Density Lipoprotein 12 mg/dL (5-40)
== END ==
PROVIDERS: PCP Family Medicine; Referring Provider Physician Assistant Medical; Visit Provider Physician Assistant Medical
DX: E78.00 Pure hypercholesterolemia, unspecified (principal); E78.5 Hyperlipidemia, unspecified
CPT/HCPCS: 36415; 80061; 80076; 82947

== ENCOUNTER → 2021-02-01 12:07 | Outpatient (CLI) | payer OTHER, SELFPAY ==
[2017-05-13 11:34] VITALS: BMI 31.3
[2021-02-01 15:20] LABS: Glucose 96 mg/dL (74-106)
== END ==
PROVIDERS: PCP Family Medicine; Referring Provider Physician Assistant Medical; Visit Provider Physician Assistant Medical
DX: E78.5 Hyperlipidemia, unspecified (principal)
CPT/HCPCS: 36415; 82947

== ENCOUNTER → 2021-02-06 09:25 | Outpatient (CLI) | payer OTHER, SELFPAY ==
[2017-05-13 11:34] VITALS: BMI 31.3
[2021-02-06 11:03] LABS: AST(SGOT) 25 U/L (15-37); Alanine Aminotransfer ALT/SGPT 56 U/L (16-61); Alkaline Phosphatase 75 U/L (45-117); Bilirubin, Direct 0.31 mg/dL (0.00-0.30); Cholesterol 133 mg/dL (200); Globulin 3.3 g/dL (2.2-4.2); High Density Lipoprotein 62 mg/dL; Protein, Total 7.3 g/dL (6.4-8.2); Triglycerides 115 mg/dL; Very Low Density Lipoprotein 23 mg/dL (5-40)
== END ==
PROVIDERS: PCP Family Medicine; Referring Provider Physician Assistant Medical; Visit Provider Physician Assistant Medical
DX: I25.10 Atherosclerotic heart disease of native coronary artery without angina pectoris (principal); E78.5 Hyperlipidemia, unspecified
CPT/HCPCS: 36415; 80061; 80076

== ENCOUNTER → 2021-08-30 | Outpatient (CLI) | payer OTHER, SELFPAY ==
[2017-05-13 11:34] VITALS: BMI 31.3
[2021-08-30 12:55] LABS: AST(SGOT) 23 U/L (15-37); Alanine Aminotransfer ALT/SGPT 39 U/L (16-61); Alkaline Phosphatase 69 U/L (45-117); Bilirubin, Direct 0.37 mg/dL (0.00-0.30); Cholesterol 126 mg/dL (200); Globulin 3.1 g/dL (2.2-4.2); High Density Lipoprotein 60 mg/dL; Protein, Total 7.1 g/dL (6.4-8.2); Triglycerides 110 mg/dL; Very Low Density Lipoprotein 22 mg/dL (5-40)
== END | disposition home or self-care (01) ==
LOC: MTLAB 09:49
PROVIDERS: PCP Family Medicine; Referring Provider Physician Assistant Medical; Visit Provider Physician Assistant Medical
DX: E78.5 Hyperlipidemia, unspecified (principal); E78.00 Pure hypercholesterolemia, unspecified
CPT/HCPCS: 36415; 80061; 80076

== ENCOUNTER 2022-01-31 11:57 | Outpatient (CLI) | payer OTHER, SELFPAY ==
[2017-05-13 11:34] VITALS: BMI 31.3
[2022-01-31 16:31] LABS: AST(SGOT) 17 U/L (15-37); Alanine Aminotransfer ALT/SGPT 45 U/L (16-61); Alkaline Phosphatase 72 U/L (45-117); Bilirubin, Direct 0.36 mg/dL (0.00-0.30); Cholesterol 118 mg/dL (200); High Density Lipoprotein 54 mg/dL; Triglycerides 94 mg/dL; Very Low Density Lipoprotein 19 mg/dL (5-40)
== END 2022-01-31 23:59 | disposition home or self-care (01) ==
LOC: MTLAB 11:58
PROVIDERS: PCP Family Medicine; Referring Provider Physician Assistant Medical; Visit Provider Physician Assistant Medical
DX: E78.00 Pure hypercholesterolemia, unspecified (principal)
CPT/HCPCS: 36415; 80061; 80076

== ENCOUNTER → 2022-07-22 | Outpatient (CLI) | payer OTHER, SELFPAY ==
[2017-05-13 11:34] VITALS: BMI 31.3
[2022-07-22 13:38] LABS: AST(SGOT) 21 U/L (15-37); Alanine Aminotransfer ALT/SGPT 41 U/L (16-61); Albumin, Serum 3.8 g/dL (3.2-5.0); Alkaline Phosphatase 73 U/L (45-117); Bilirubin, Direct 0.37 mg/dL (0.00-0.30); Cholesterol 118 mg/dL (200); Globulin 3.1 g/dL (2.2-4.2); High Density Lipoprotein 51 mg/dL; Protein, Total 6.9 g/dL (6.4-8.2); Triglycerides 113 mg/dL; Very Low Density Lipoprotein 23 mg/dL (5-40)
[2022-07-22 14:03] LABS: Glucose 128 mg/dL (74-106)
== END | disposition home or self-care (01) ==
PROVIDERS: Internal Medicine Cardiovascular Disease; PCP Family Medicine; Referring Provider Physician Assistant Medical; Visit Provider Physician Assistant Medical
DX: E78.5 Hyperlipidemia, unspecified (principal); I25.10 Atherosclerotic heart disease of native coronary artery without angina pectoris
CPT/HCPCS: 36415; 80061; 80076; 82947

== ENCOUNTER → 2023-03-26 | Outpatient (CLI) | payer OTHER, SELFPAY ==
[2017-05-13 11:34] VITALS: BMI 31.3
[2023-03-26 16:18] LABS: AST(SGOT) 20 U/L (15-37); Alanine Aminotransfer ALT/SGPT 36 U/L (16-61); Alkaline Phosphatase 67 U/L (45-117); Bilirubin, Direct 0.29 mg/dL (0.00-0.30); Cholesterol 112 mg/dL (200); Globulin 3.1 g/dL (2.2-4.2); High Density Lipoprotein 75 mg/dL; Protein, Total 7.1 g/dL (6.4-8.2); Triglycerides 65 mg/dL; Very Low Density Lipoprotein 13 mg/dL (5-40)
== END | disposition home or self-care (01) ==
LOC: MTLAB 11:45
PROVIDERS: PCP Family Medicine; Referring Provider Physician Assistant Medical; Visit Provider Physician Assistant Medical
DX: E78.00 Pure hypercholesterolemia, unspecified (principal)
CPT/HCPCS: 36415; 80061; 80076

== ENCOUNTER → 2023-05-06 | Outpatient (CLI) | payer OTHER, SELFPAY ==
[2017-05-13 11:34] VITALS: BMI 31.3
--- NOTE | 2023-05-06 17:50 | STRESSREP_ITS ---
Stress Test Report Exercise myocardial perfusion stress test. 63-year-old male with a history of chest pain Stress protocol: Resting EKG demonstrates normal sinus rhythm with a rate of 69 bpm resting blood pressure is 118/70 mmHg. The patient exercised according to the regular Rajat protocol for a total duration of 12 minutes attaining a maximum heart rate of 160 bpm which was 102% of maximum predicted heart rate; the maximum workload was 13.4 metabolic equivalents. At rest there were no ST or T wave changes noted to suggest ischemia and at peak exercise upsloping ST changes only were noted which did not meet the criteria for ischemia. No clinical angina was noted the test was terminated due to the target heart rate being achieved/fatigue. The peak blood pressure was 168/60 mmHg. Rate-pressure product was 26,900. Myocardial perfusion protocol. 11.7 mCi of technetium 99m sestamibi was injected at rest. The patient exercised according to regular Rajat protocol for total duration of 12 minutes and at peak exercise 34.3 mCi of technetium 99m sestamibi was injected stress images were obtained stress and rest images were reconstructed in comparing the short axis vertical long and horizontal long axis. Gated images were also obtained. Perfusion SPECT analysis: Review of the stress images demonstrate normal uptake of tracer noted in all a reas of the myocardium. The resting images similarly demonstrate normal uptake of tracer noted in all areas of the myocardium. No areas of reversibility are noted to suggest ischemia no previous infarct was noted. Gated SPECT analysis: The gated ejection fraction is 78%. Conclusion: Normal exercise myocardial perfusion stress test at a high workload Preserved ejection fraction.
== END | disposition home or self-care (01) ==
LOC: CVS 07:08
PROVIDERS: PCP Family Medicine; Referring Provider Nurse Practitioner Family; Visit Provider Nurse Practitioner Family
DX: Z95.5 Presence of coronary angioplasty implant and graft (principal); I10 Essential (primary) hypertension; E78.5 Hyperlipidemia, unspecified
CPT/HCPCS: 78452; 93017; A9500

== ENCOUNTER → 2023-07-02 | Outpatient (CLI) | payer OTHER, SELFPAY ==
[2017-05-13 11:34] VITALS: BMI 31.3
--- NOTE | 2023-07-02 08:33 | US_ITS ---
STUDY: ABDOMINAL ULTRASOUND - RIGHT UPPER QUADRANT; ELASTOGRAPHY REASON FOR VISIT: Male, 63 years old. Fatty infiltration of the liver. TECHNIQUE: Ultrasound evaluation of the right upper quadrant was performed with real-time and static whaley-scale imaging. Point quantification shear wave elastography was performed (Goalbook). TECHNICAL QUALITY: Adequate. COMPARISON: None. FINDINGS: Liver: The liver measures 16.6 cm. There is increased echogenicity consistent with fatty infiltration. The bile ducts are within normal limits. There is hepatic color flow. The direction of portal flow is hepatopetal. There is no demonstrated mass lesion. Median liver stiffness measured 7.9 kPa. Gallbladder: Normal distended gallbladder. The gallbladder wall measures 3.3 mm. There is a negative sonographic Abdi''s sign. There is no pericholecystic fluid. There are no gallstones. Common Bile Duct (C.B.D.): The common bile duct was not visualized due to overlying bowel gas. Pancreas: The pancreas was not visualized due to overlying bowel gas. Right Kidney: Normal size of the right kidney. The right kidney measures 12 cm x 6 x 5.9 cm. Normal renal cortex. The right cortex measures 1.2 cm. There is no demonstrated renal mass or cyst. There is no right hydronephrosis. US/ABD Limited w/ Elastography IMPRESSION: 1. Liver stiffness measures 7.9 kPa compatible with F2-F3 (Mild to moderate liver fibrosis) Metavir score. 2. Mild degree of fatty infiltration of the liver. Electronically Signed: Marlon Nelson MD at 15:37 EDT ,
== END | disposition home or self-care (01) ==
PROVIDERS: PCP Family Medicine; Referring Provider Family Medicine; Visit Provider Family Medicine
DX: K76.0 Fatty (change of) liver, not elsewhere classified (principal)
CPT/HCPCS: 76705; 76981

== ENCOUNTER → 2023-12-21 | Outpatient (CLI) | payer OTHER, SELFPAY ==
[2017-05-13 11:34] VITALS: BMI 31.3
[2023-12-21 12:24] LABS: Absolute Lymphocyte Count 1.12 X10^3/uL (0.83-4.51); Absolute Neutrophil Count 2.5 X10^3/uL (2.0-7.7); Basophil# 0.03 X10^3/uL; Basophil% 0.7 % (0-1); Eosinophil# 0.08 X10^3/uL; Eosinophils% 1.9 % (0-5); Hematocrit 43.4 % (40-54); Hemoglobin 13.8 g/dL (13.0-16.5); Lymphocyte # 1.12 X10^3/ul (0.83-4.51); Lymphocyte % 27.1 % (19-41); Mean Corp Hgb Conc 31.8 g/dL (32-36); Mean Corpuscular Hgb 27.7 pg (27.0-32.0); Mean Corpuscular Volume 87.1 fL (80-94); Mean Platelet Vol. 8.9 fl (6.2-12.0); Monocyte% 9.7 % (0-10); NRBC Flagged by Analyzer 0 % (0-5); Neutrophil # 2.49 X10^3/uL (2.7-7.7); Neutrophil % 60.4 % (47-70); Platelet Count 247 K/mm3 (150-450); RBC Distribution Width CV 13.7 % (11.6-14.6); RBC Distribution Width SD 43.7 fl (35.1-43.9); Red Blood Count 4.98 M/mm3 (4.6-6.2); White Blood Count 4.1 K/mm3 (4.4-11.0)
[2023-12-21 13:09] LABS: PSA,Total - Annual Screen 0.76 ng/mL (0.00-4.00)
[2023-12-21 13:41] LABS: AST(SGOT) 23 U/L (15-37); Alanine Aminotransfer ALT/SGPT 27 U/L (16-61); Albumin, Serum 3.9 g/dL (3.2-5.0); Alkaline Phosphatase 68 U/L (45-117); Anion Gap 6 (5-15); BUN 21 mg/dL (7-18); BUN/Creat Ratio 20.6 RATIO (10-20); Calcium,Total 9.4 mg/dL (8.5-10.1); Chloride 107 mmol/L (98-107); Cholesterol 107 mg/dL (200); Creatinine, Serum 1.02 mg/dL (0.70-1.30); EST Glomerular Filtration Rate 78 mL/min (>60); Est Glom Filt Rate - Afr Amer 94 mL/min (>60); Glucose 109 mg/dL (74-106); High Density Lipoprotein 75 mg/dL; Potassium 4.4 mmol/L (3.5-5.1); Protein, Total 6.9 g/dL (6.4-8.2); Sodium Level 139 mmol/L (136-145); Triglycerides 51 mg/dL; Very Low Density Lipoprotein 10 mg/dL (5-40)
[2023-12-21 15:08] LABS: Hemoglobin A1c 6.2 % (3.8-5.6)
== END | disposition home or self-care (01) ==
PROVIDERS: PCP Family Medicine; Referring Provider Nurse Practitioner Family; Visit Provider Nurse Practitioner Family
DX: Z12.5 Encounter for screening for malignant neoplasm of prostate (principal); K76.0 Fatty (change of) liver, not elsewhere classified; E78.00 Pure hypercholesterolemia, unspecified; I10 Essential (primary) hypertension; Z95.5 Presence of coronary angioplasty implant and graft
CPT/HCPCS: 36415; 80048; 80061; 80076; 83036; 84153; 85025; G0103

== ENCOUNTER → 2024-06-27 | Outpatient (CLI) | payer OTHER, SELFPAY ==
[2024-01-24 10:19] VITALS: BMI 31.3
[2024-06-27 11:25] LABS: Microalbumin,Random Urine < 12.0 mg/L (NO RANGE EST.); Microalbumin:Creatinine Ratio UNABLE TO CALCULATE mg/g CRE
[2024-06-27 11:34] LABS: ALB/GLOB Ratio 1.8 RATIO (0.9-2.4); AST(SGOT) 26 U/L (<=37); Alanine Aminotransfer ALT/SGPT 20 U/L (<=46); Albumin, Serum 4.3 g/dL (3.4-4.8); Alkaline Phosphatase 55 U/L (40-129); Anion Gap 11 (5-15); BUN 24 mg/dL (4-19); BUN/Creat Ratio 22.9 RATIO (10-20); Calcium,Total 9.1 mg/dL (7.6-11.0); Carbon Dioxide 24.3 mmol/L (21.0-32.0); Chloride 104 mmol/L (98-108); Cholesterol 124 mg/dL (<=200); Creatinine, Serum 1.06 mg/dL (0.70-1.20); EST Glomerular Filtration Rate 78 (>60); Globulin 2.3 g/dL (2.2-4.2); Glucose 109 mg/dL (70-99); Hemoglobin A1c 5.9 % (<=5.6); High Density Lipoprotein 68 mg/dL; Low Density Lipoprotein Calc. 43 mg/dL; Potassium 4.1 mmol/L (3.3-5.1); Protein, Total 6.6 g/dL (5.9-8.4); Sodium Level 139 mmol/L (133-145); Total Bilirubin 1.84 mg/dL (0.00-1.30); Triglycerides 69 mg/dL; Very Low Density Lipoprotein 14 mg/dL (5-40); cholesterol:hdl ratio screen 1.83
[2024-06-27 13:30] LABS: Absolute Lymphocyte Count 1.07 X10^3/uL (0.83-4.51); Absolute Neutrophil Count 2.3 X10^3/uL (2.0-7.7); Basophil# 0.02 X10^3/uL; Basophil% 0.5 % (0-1); Eosinophil# 0.12 X10^3/uL; Hematocrit 42.2 % (40-54); Hemoglobin 14.1 g/dL (13.0-16.5); Lymphocyte # 1.07 X10^3/ul (0.83-4.51); Mean Corp Hgb Conc 33.4 g/dL (32-36); Mean Corpuscular Hgb 30.8 pg (27.0-32.0); Mean Corpuscular Volume 92.1 fL (80-94); Mean Platelet Vol. 9.2 fl (6.2-12.0); Monocyte# 0.41 X10^3/uL; Monocyte% 10.4 % (0-10); NRBC Flagged by Analyzer 0 % (0-5); Neutrophil # 2.33 X10^3/uL (2.7-7.7); Neutrophil % 58.8 % (47-70); Platelet Count 248 K/mm3 (150-450); RBC Distribution Width CV 13.1 % (11.6-14.6); RBC Distribution Width SD 43.7 fl (35.1-43.9); Red Blood Count 4.58 M/mm3 (4.6-6.2)
== END | disposition home or self-care (01) ==
LOC: MTLAB 09:14
PROVIDERS: PCP Family Medicine; Referring Provider Family Medicine; Visit Provider Family Medicine
DX: K76.0 Fatty (change of) liver, not elsewhere classified (principal); I25.10 Atherosclerotic heart disease of native coronary artery without angina pectoris
CPT/HCPCS: 36415; 80053; 80061; 82043; 82570; 83036; 85025

== ENCOUNTER → 2024-08-09 | Outpatient (CLI) | payer OTHER, SELFPAY ==
[2024-01-24 10:19] VITALS: BMI 31.3
--- NOTE | 2024-08-09 13:13 | RAD_ITS ---
PROCEDURE: FINGER(S) MIN 2 VIEWS 08/09/2024 REASON FOR EXAM: MASS OF FINGER TECHNIQUE: 3 view(s) of the right middle finger COMPARISON: None. FINDINGS: Prominent soft tissue protrusion/lesion overlying the dorsal aspect of the distal interphalangeal joint. No associated bony abnormality. No associated erosive changes of the underlying bones. Tiny bone fragments adjacent to the base of the distal phalanx of the 3rd finger, chronic finding. Normal metacarpal head. Normal metacarpophalangeal joint. Normal proximal phalanx. Normal middle phalanx. Normal distal phalanx. Normal proximal interphalangeal joint. Normal distal interphalangeal joint. RAD/Finger(s) Min 2 Views IMPRESSION: Prominent soft tissue protrusion/lesion overlying the dorsal aspect of the dist al interphalangeal joint. No associated bony abnormality. No associated erosive changes of the underlying bones. Tiny bone fragments adjacent to the base of the distal phalanx of the 3rd finge r, chronic finding. Reading [facility]
--- OUTSIDE RECORDS SUMMARY | 2024-08-09 23:32 | XMS RPT_ITS | CCD ---
Author Organization [facility] Care Team Providers Care Senior Sales Administrator Name Role Phone Dr. Evert Chatman Primary Care Provider Dr. Evert Chatman Referring Provider 1([facility])[phone] [facility]of DIVISION MANAGER, DIVISION MANAGER-C Ken Barrios Attending Provider 1([facility])[phone] [facility] DIVISION MANAGER, DIVISION MANAGER-C Ken Barrios Referring Provider 1([facility])[phone] [facility] DIVISION MANAGER, DIVISION MANAGER-C Ken Barrios Other Provider 1([facility])[phone] Jose Vieira Attending Provider 1([facility])[phone] Compa PENA, Dr. Loyd Primary Care Provider 1([facility])[phone] Dr. Evert Chatman MD Referring Provider 1([facility])[phone] Jose Vieira MD Attending Provider 1([facility])[phone] Compa PENA, Dr. Loyd Attending Provider 1([facility])[phone] Denise PENA, Dr. Smith Attending Provider 1([facility])[phone] Evert Chatman Referring Unavailable Chatman, Evert Primary Care Unavailable Roof DIVISION MANAGER, Ken Sophie Attending Unavailable Evert Chatman Attending Unavailable Chatman, Evert Referring Unavailable Chatman, Evert Primary Care Unavailable [facility]of DIVISION MANAGER, Ken H Attending Unavailable [facility] DIVISION MANAGER, Ken H Referring Unavailable Chatman, Evert Primary Care Unavailable ChatmanEvert Consulting Unavailable Chatman, Evert Referring Unavailable Chatman, Evert Primary Care Unavailable Jose Vieira Attending Unavailable Chatman, Evert Referring Unavailable Chatman, Evert Primary Care Unavailable Luis Walker Attending Unavailable Medications Current Medications Medication Drug Class(es) Dates Sig (Normalized) Sig (Original) atorvastatin 40 mg oral tablet (20 sources) HMG-CoA Reductase Inhibitor Start: 05-17-2024 End: 07-11-2024 take 1 tablet by mouth at bedtime Atorvastatin 40 mg tablet Active 40 mg PO AT BEDTIME July 11, 2024 5:05pm Start: 05-15-2017 End: 05-17-2024 take 1 tablet by mouth at bedtime Atorvastatin 80 mg tablet Discontinued 80 mg PO AT BEDTIME May 17, 2024 3:03pm May 17, 2024 5:27pm lisinopril 5 mg oral tablet (20 sources) Angiotensin Converting Enzyme Inhibitor Start: 05-15-2017 End: 05-17-2024 take 1 tablet by mouth once daily Lisinopril 5 mg tablet Active 5 mg PO DAILY May 17, 2024 3:03pm metoprolol tartrate 25 mg oral tablet (20 sources) beta-Adrenergic Melany Start: 05-15-2017 End: 05-17-2024 Metoprolol Tartrate 25 mg tablet Active 12.5 mg PO TWICE A DAY May 17, 2024 3:03pm Start: 05-15-2017 End: 02-02-2023 take 12.5 mg by mouth twice daily Metoprolol Tartrate Discontinued 12.5 MG PO TWICE A DAY June 11, 2018 8:14am November 22, 2018 4:06pm pioglitazone 15 mg oral tablet (1 source) Peroxisome Proliferator Receptor alpha Agonist, Peroxisome Proliferator Receptor gamma Agonist, Thiazolidinedione Start: 01-24-2024 take 1 tablet by mouth once daily Pioglitazone 15 mg tablet Active 15 mg PO daily January 24, 2024 1:00am Completed/Discontinued Medications Medication Drug Class(es) Dates Sig (Normalized) Sig (Original) amoxicillin 875 mg / clavulanate 125 mg oral tablet (1 source) Penicillin-class Antibacterial Start: 01-24-2024 End: 01-31-2024 Amoxicillin-Pot Clavulanate 875-125 mg tablet Discontinued 1 {tbl} PO TWICE A DAY 14 January 24, 2024 1:00am January 30, 2024 1:00am January 31, 2024 1:10am aspirin 81 mg delayed release oral tablet (20 sources) Platelet Aggregation Inhibitor, Nonsteroidal Anti-inflammatory Drug Start: 05-15-2017 End: 11-22-2018 take 1 tablet by mouth once daily Aspirin 81 mg tablet,delayed release (DR/EC) Discontinued 81 mg PO DAILY@0800 90 September 15, 2018 3:41pm November 22, 2018 4:06pm clopidogrel 75 mg oral tablet (20 sources) P2Y12 Platelet Inhibitor Start: 01-24-2024 End: 05-17-2024 Clopidogrel (Plavix) 75 mg tablet Discontinued 37.5 mg PO daily January 24, 2024 1:00am May 17, 2024 3:00pm Start: 05-15-2017 End: 03-31-2023 take 1 tablet by mouth once daily Clopidogrel 75 mg tablet Discontinued 75 mg PO DAILY 90 February 02, 2023 1:40pm March 31, 2023 5:11pm Problems Active Problems Problem Classification Problem Date Documented Da te Episodic/Chronic Cardiac dysrhythmias (6 sources) Ventricular arrhythmia; Translations: [Cardiac arrhythmia, unspecified] 02-06-2021 Chronic Coronary atherosclerosis and other heart disease (12 sources) Acute coronary syndrome; Translations: [Acute ischemic heart disease, unspecified] 02-06-2021 Chronic Disorders of lipid metabolism (9 sources) Hyperlipidemia; Translations: [Hyperlipidemia, unspecified] 05-28-2017 Chronic Essential hypertension (9 sources) Essential hypertension; Translations: [Essential (primary) hypertension] 02-06-2021 Chronic Other liver diseases (1 source) Fatty (change of) liver, not elsewhere classified; Translations: [Fatty (change of) liver, not elsewhere classified] Onset: 07-06-2024 Chronic Other nutritional; endocrine; and metabolic disorders (6 sources) Obese class I; Translations: [Obesity, unspecified] 02-06-2021 Chronic Past or Other Problems Problem Classification Problem Date Documented Da te Episodic/Chronic Coronary atherosclerosis and other heart disease (2 sources) Presence of coronary angioplasty implant and graft; Translations: [Percutaneous transluminal coronary angioplasty status] Onset: 05-13-2017 03-31-2023 Episodic Other screening for suspected conditions (not mental disorders or infectious disease) (1 source) Encounter for screening for malignant neoplasm of prostate; Translations: [Encounter for screening for malignant neoplasm of prostate] Onset: 01-12-2024 Episodic Other upper respiratory infections (2 sources) Pharyngitis; Translations: [Acute pharyngitis, unspecified] Onset: 01-24-2024 01-24-2024 Episodic Results Test Name Value Interpretation Reference Range Facility Plastic Surgery Visit Report on 08-05-2024 Plastic Surgery Visit Report [facility] [address], [address] [place], [place] [address] OFFICE VISIT Date of Service: 08/05/24 MR#: [id number] Acct: [id number] Name: WILLIAN BOWER Rep #: [id number] : 1960 Provider: Dr. Luis Walker MD Age/Sex: 64/M Location: [facility] Status: Signed Intake Vital Signs 3 05/17/24 14:57 08/05/24 14:15 Height 5 ft 10 in Weight: 195 lb BMI 27.9 BP 126/73 H 114/75 Blood Pressure Location Lt brachial Rt brachial Position Sitting Sitting Respiration 16 18 Pulse 68 64 Pulse Source Monitor Monitor Pulse Oximetry (%) 96 Oxygen Delivery Method room air Intake Visit Reasons: FINGER CYST Chief Complaint: finger cyst Is patient in pain?: Yes Allergies No Known Allergies Allergy (Verified 08/05/24 14:11) Medications 3 ???Medication ???Instructions ???Recorded ???Confirmed ???Type aspirin 81 mg tablet,delayed 81 mg PO DAILY@0800 #90 tabs 11/2208/05/24 Rx release pioglitazone 15 mg tablet 15 mg PO QDAY 01/24/24 08/05/24 Hi story lisinopril 5 mg tablet 5 mg PO DAILY #90 tabs 05/17/24 Rx metoprolol tartrate 25 mg tablet 12.5 mg (1/2 x 25 mg) PO BID #90 0 05/17/24 08/05/24 Rx tabs atorvastatin 40 mg tablet 40 mg PO QHS Dose has been 5 08/05/24 Rx decreased, pt used up 80 mg tablets #90 tabs Have you fallen in the past year?: No PFSH Medical History History of non-ST elevation myocardial infarction (NSTEMI) (05/13/17) Essential hypertension Atherosclerosis of coronary artery of [place] heart without angina pectoris Ventricular arrhythmia Obesity (BMI 30.0-34.9) ACS (acute coronary syndrome) HLD (hyperlipidemia) Surgical History H/O left inguinal hernia repair History of appendectomy History of coronary artery stent placement (05/13/17) Family History Father CAD (coronary artery disease) Hx CABG Diabetes Mother High cholesterol Social History Smoking Status: Never smoker alcohol intake: current alcohol intake frequency: a few times a week Alcohol type: beer substance use type: does not use caffeine: Yes Type: coffee what type of physical activity do you participate in: none seatbelt use: always do you feel safe at home: Yes HPI FINGER CYST Details: Willian Bower is a delightful 64-year-old male who presents for evaluation of a right long finger mucous cyst after being referred to us by Dr. Chatman at [facility]. 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 He is not a smoker. Patient reports the cyst has been present for sure period of time and has been getting larger. It is never drained. Of note patient had a coronary artery stent placement in April 2017. He has essential hypertension and hyperlipidemia. ROS General General: Yes good health; No fatigue, fever(s) or weight loss HENMT HENMT: No rhinitis, sore throat/mouth sore, nasal congestion, contacts or glaucoma Endo Endocrine: No thyroid disease, polydipsia, heat intolerance, cold intolerance, hepatitis or excessive urine Skin Skin: No Bleeding, bruising, changing moles or suspicious lesion Musc Musculoskeletal: No joint pain, joint stiffness, muscle weakness, back pain, osteoarthritis or Muscle aches/ myalgia Neuro Neurological: No headache(s), No lightheadedness and No numbness Cardio Cardiovascular: No chest pain, pacemaker, fatigue or shortness of breat with exertion Psych Psychiatric: No depression, claustrophobia or anxiety Resp Respiratory: No spitting up, shortness of breath, sleep apnea, asthma, emphysema, TB, Cough or Smoker Gastro Gastrointestinal: No diarrhea, constipation, blood in stool, nausea, vomiting or abdominal bloating Sudarshan Hematologic: No anemia, No bleeding and No abnormal bleeding Genitourinary: No urinary frequency, blood in urine or incontinence Exam Details Right upper Extremity Inspection: Right long finger with dorsal 1 x 1 cm transilluminating mass over the DIP joint consistent with a ganglion cyst. No mallet finger. Healthy skin overlying the cyst Palpation: Palpable cyst in this area. No collateral ligament instability. Motor: Able to bend and extend all MP, PIP, and DIP joints. Sensory: Intact to light touch on the radial and ulnar borders. Vascular: Finger tips are warm and well perfused with <2 second capillary refill. Coding Level of Care Code Off vis,new,level 3 Diagnoses Digital mucous cyst of finger M67.449 Assessment and Plan (No Qualifiers) Assessment and Plan (1) Digital mucous cyst of finger: Status: Acute Comment: Right long (more content not included)... Normal [facility] Absolute lymphocyte countOrd ered By: Evert Chatman on 06-27-2024 Lymphocytes Auto (Unsp spec) [#/Vol] 1.07 10*3/uL 0.83-4.51 [facility] Absolute neutrophil countOrd ered By: Evert Chatman on 06-27-2024 Neutrophils (Bld) [#/Vol] 2.3 10*3/uL 2.0-7.7 [facility] Anion gap in Serum or Plasma Ordered By: Evert Chatman on 06-27-2024 Anion gap [Moles/Vol] 11 mmol/L 5-15 [facility] Automated lymphocyte count a s percentage of total leukocytesOrdered By: Evert Chatman on 06-27-2024 Lymphocytes/100 WBC Auto (Unsp spec) 27.0 % 19-41 [facility] BUN/creatinine ratioOrdered By: Evert Chatman on 06-27-2024 Urea nitrogen/Creatinine [Mass ratio] 22.9 mg/mg High 10-20 [facility] Basophil percentageOrdered B y: Evert Chatman on 06-27-2024 Basophils/100 WBC (Bld) 0.5 % 0-1 [facility] Bilirubin, totalOrdered By: Evert Chatman on 06-27-2024 Bilirubin [Mass/Vol] 1.84 mg/dL High 0.00-1.30 [facility] CBC W/Diff, Automatedon 06-01 Absolute Lymph 1.07 X10 3/uL Normal 0.83-4.51 [facility] Comment on above: Order Comment: Order Date: 06/13/24 Order Info: [id number] - CBCD Performed By: #### L 500.4050, L501.9985, L500.4100, L100.0100 #### [facility] [address] [place], [address] Absolute Neut 2.3 X10 3/uL Normal 2.0-7.7 [facility] Comment on above: Order Comment: Order Date: 06/13/24 Order Info: [id number] - CBCD Performed By: #### L 500.4050, L501.9985, L500.4100, L100.0100 #### [facility] [address] [place], [address] Basophils/100 WBC (Bld) 0.5 % Normal 0-1 [facility] Comment on above: Order Comment: Order Date: 06/13/24 Order Info: [id number] - CBCD Performed By: #### L 500.4050, L501.9985, L500.4100, L100.0100 #### [facility] [address] [place], [address] Eosinophils/100 WBC (Bld) 3.0 % Normal 0-5 [facility] Comment on above: Order Comment: Order Date: 06/13/24 Order Info: [id number] - CBCD Performed By: #### L 500.4050, L501.9985, L500.4100, L100.0100 #### [facility] [address] [place], [address] Erythrocyte distribution width (RBC) [Ratio] 13.1 % Normal 11.6-14.6 [facility] Comment on above: Order Comment: Order Date: 06/13/24 Order Info: [id number] - CBCD Performed By: #### L 500.4050, L501.9985, L500.4100, L100.0100 #### [facility] [address] [place], [address] Hematocrit (Bld) [Volume fraction] 42.2 % Normal 40-54 [facility] Comment on above: Order Comment: Order Date: 06/13/24 Order Info: 0184-1 - CBCD Performed By: #### L 500.4050, L501.9985, L500.4100, L100.0100 #### [facility] [address] [place], [address] Hemoglobin (Bld) [Mass/Vol] 14.1 g/dL Normal 13.0-16.5 [facility] Comment on above: Order Comment: Order Date: 06/13/24 Order Info: 0184- - CBCD Performed By: #### L 500.4050, L501.9985, L500.4100, L100.0100 #### [facility] [address] [place], [address] IG% 0.300 Normal 0.0-0.9 [facility] Comment on above: Order Comment: Order Date: 06/13/24 Order Info: 018- - CBCD Result Comment: IG% - Immature Granulocytes (promyelocytes, myelocytes and metamyelocytes) > 1% indicates that a LEFT SHIFT is Present. Performed By: #### L 500.4050, L501.9985, L500.4100, L100.0100 #### [facility] [address] [place], [address] Lymphocytes/100 WBC (Bld) 27.0 % Normal 19-41 [facility] Comment on above: Order Comment: Order Date: 06/13/24 Order Info: 0184- - CBCD Performed By: #### L 500.4050, L501.9985, L500.4100, L100.0100 #### [facility] [address] [place], [address] MCH (RBC) [Entitic mass] 30.8 pg Normal 27.0-32.0 [facility] Comment on above: Order Comment: Order Date: 06/13/24 Order Info: 0184- - CBCD Performed By: #### L 500.4050, L501.9985, L500.4100, L100.0100 #### [facility] [address] [place], [address] MCHC (RBC) [Mass/Vol] 33.4 g/dL Normal 32-36 [facility] Comment on above: Order Comment: Order Date: 06/13/24 Order Info: [id number] - CBCD Performed By: #### L 500.4050, L501.9985, L500.4100, L100.0100 #### [facility] [address] [place], [address] MCV (RBC) [Entitic vol] 92.1 fL Normal 80-94 [facility] Comment on above: Order Comment: Order Date: 06/13/24 Order Info: 0184-1 - CBCD Performed By: #### L 500.4050, L501.9985, L500.4100, L100.0100 #### [facility] [address] [place], [address] Monocytes/100 WBC (Bld) 10.4 % High 0-10 [facility] Comment on above: Order Comment: Order Date: 06/13/24 Order Info: 0184-1 - CBCD Performed By: #### L 500.4050, L501.9985, L500.4100, L100.0100 #### [facility] [address] [place], [address] Neutrophils/100 WBC (Bld) 58.8 % Normal 47-70 [facility] Comment on above: Order Comment: Order Date: 06/13/24 Order Info: 0184-1 - CBCD Performed By: #### L 500.4050, L501.9985, L500.4100, L100.0100 #### [facility] [address] [place], [address] Nucleated RBC (Bld) [#/Vol] 0 10*3/uL Normal 0-5 [facility] Comment on above: Order Comment: Order Date: 06/13/24 Order Info: 0184-1 - CBCD Performed By: #### L 500.4050, L501.9985, L500.4100, L100.0100 #### [facility] [address] [place], [address] Platelet mean volume (Bld) [Entitic vol] 9.2 fL Normal 6.2-12.0 [facility] Comment on above: Order Comment: Order Date: 06/13/24 Order Info: 018- - CBCD Performed By: #### L 500.4050, L501.9985, L500.4100, L100.0100 #### [facility] [address] [place], [address] Platelets (Bld) [#/Vol] 248 10*3/uL Normal 150-450 [facility] Comment on above: Order Comment: Order Date: 06/13/24 Order Info: 018- - CBCD Performed By: #### L 500.4050, L501.9985, L500.4100, L100.0100 #### [facility] [address] [place], [address] RBC (Bld) [#/Vol] 4.58 10*6/uL Low 4.6-6.2 [facility] Comment on above: Order Comment: Order Date: 06/13/24 Order Info: 018- - CBCD Performed By: #### L 500.4050, L501.9985, L500.4100, L100.0100 #### [facility] [address] [place], [address] RDW SD 43.7 fl Normal 35.1-43.9 [facility] Comment on above: Order Comment: Order Date: 06/13/24 Order Info: 0184- - CBCD Performed By: #### L 500.4050, L501.9985, L500.4100, L100.0100 #### [facility] [address] [place], [address] WBC (Bld) [#/Vol] 4.0 10*3/uL Low 4.4-11.0 [facility] Comment on above: Order Comment: Order Date: 06/13/24 Order Info: [id number] - CBCD Performed By: #### L 500.4050, L501.9985, L500.4100, L100.0100 #### [facility] [address] [place], [address] Calculated very low density lipoprotein (VLDL) cholesterol measurementOrdered By: Evert Chatman on 06-27-2024 Calculated very low density lipoprotein (VLDL) cholesterol measurement 14 mg/dL 5-40 [facility] Carbon dioxide, total [Moles /volume] in Central venous bloodOrdered By: Evert Chatman on 06-27-2024 CO2 [Moles/Vol] 24.3 mmol/L 21.0-32.0 [facility] Chloride assayOrdered By: Rai Chatman on 06-27-2024 Chloride [Moles/Vol] 104 mmol/L 98-108 [facility] Comprehensive Metabolic Prof ilon 06-27-2024 Albumin [Mass/Vol] 4.3 g/dL Normal 3.4-4.8 [facility] Comment on above: Order Comment: Order Date: 06/13/24 Order Info: [id number] - CMP Order Info: [id number] - LIPID Performed By: #### L 500.4050, L501.9985, L500.4100, L100.0100 #### [facility] [address] [place], [address] Albumin/Globulin [Mass ratio] 1.8 {ratio} Normal 0.9-2.4 [facility] Comment on above: Order Comment: Order Date: 06/13/24 Order Info: [id number] - CMP Order Info: [id number] - LIPID Performed By: #### L 500.4050, L501.9985, L500.4100, L100.0100 #### [facility] [address] [place], [address] ALK PHOS 55 U/L Normal 40-129 [facility] Comment on above: Order Comment: Order Date: 06/13/24 Order Info: [id number] - CMP Order Info: [id number] - LIPID Performed By: #### L 500.4050, L501.9985, L500.4100, L100.0100 #### [facility] [address] [place], [address] ALT [Catalytic activity/Vol] 20 U/L Normal <=46 [facility] Comment on above: Order Comment: Order Date: 06/13/24 Order Info: [id number] - CMP Order Info: [id number] - LIPID Performed By: #### L 500.4050, L501.9985, L500.4100, L100.0100 #### [facility] [address] [place], [address] AST [Catalytic activity/Vol] 26 U/L Normal <=37 [facility] Comment on above: Order Comment: Order Date: 06/13/24 Order Info: [id number] - CMP Order Info: [id number] - LIPID Performed By: #### L 500.4050, L501.9985, L500.4100, L100.0100 #### [facility] [address] [place], [address] Bilirubin [Mass/Vol] 1.84 mg/dL High 0.00-1.30 [facility] Comment on above: Order Comment: Order Date: 06/13/24 Order Info: [id number] - CMP Order Info: [id number] - LIPID Performed By: #### L 500.4050, L501.9985, L500.4100, L100.0100 #### [facility] [address] [place], [address] BUN/CRE 22.9 RATIO High 10-20 [facility] Comment on above: Order Comment: Order Date: 06/13/24 Order Info: [id number] - CMP Order Info: [id number] - LIPID Performed By: #### L 500.4050, L501.9985, L500.4100, L100.0100 #### [facility] [address] [place], [address] Calcium [Mass/Vol] 9.1 mg/dL Normal 7.6-11.0 [facility] Comment on above: Order Comment: Order Date: 06/13/24 Order Info: [id number] - CMP Order Info: [id number] - LIPID Performed By: #### L 500.4050, L501.9985, L500.4100, L100.0100 #### [facility] [address] [place], [address] Chloride [Moles/Vol] 104 mmol/L Normal 98-108 [facility] Comment on above: Order Comment: Order Date: 06/13/24 Order Info: [id number] - CMP Order Info: [id number] - LIPID Performed By: #### L 500.4050, L501.9985, L500.4100, L100.0100 #### [facility] [address] [place], [address] CO2 [Moles/Vol] 24.3 mmol/L Normal 21.0-32.0 [facility] Comment on above: Order Comment: Order Date: 06/13/24 Order Info: [id number]- - CMP Order Info: [id number] - LIPID Performed By: #### L 500.4050, L501.9985, L500.4100, L100.0100 #### [facility] [address] [place], [address] Creatinine [Mass/Vol] 1.06 mg/dL Normal 0.70-1.20 [facility] Comment on above: Order Comment: Order Date: 06/13/24 Order Info: [id number] - CMP Order Info: [id number] - LIPID Performed By: #### L 500.4050, L501.9985, L500.4100, L100.0100 #### [facility] [address] [place], [address] GAP 11 Normal 5-15 [facility] Comment on above: Order Comment: Order Date: 06/13/24 Order Info: [id number] - CMP Order Info: [id number] - LIPID Performed By: #### L 500.4050, L501.9985, L500.4100, L100.0100 #### [facility] [address] [place], [address] GFR/1.73 sq M.predicted among non-blacks MDRD (S/P/Bld) [Vol rate/Area] 78 mL/min/{1.73_m2} Normal >60 [facility] Comment on above: Order Comment: Order Date: 06/13/24 Order Info: [id number] - CMP Order Info: [id number] - LIPID Result Comment: mL/m in/1.73m2 CKD-EPI Creatinine Equation (2020) Performed By: #### L 500.4050, L501.9985, L500.4100, L100.0100 #### [facility] [address] [place], [address] Globulin (S) [Mass/Vol] 2.3 g/dL Normal 2.2-4.2 [facility] Comment on above: Order Comment: Order Date: 06/13/24 Order Info: [id number] - CMP Order Info: [id number] - LIPID Performed By: #### L 500.4050, L501.9985, L500.4100, L100.0100 #### [facility] [address] [place], [address] Glucose [Mass/Vol] 109 mg/dL High 70-99 [facility] Comment on above: Order Comment: Order Date: 06/13/24 Order Info: [id number] - CMP Order Info: [id number] - LIPID Performed By: #### L 500.4050, L501.9985, L500.4100, L100.0100 #### [facility] [address] [place], [address] Potassium [Moles/Vol] 4.1 mmol/L Normal 3.3-5.1 [facility] Comment on above: Order Comment: Order Date: 06/13/24 Order Info: [id number]- - CMP Order Info: [id number] - LIPID Performed By: #### L 500.4050, L501.9985, L500.4100, L100.0100 #### [facility] [address] [place], [address] Sodium [Moles/Vol] 139 mmol/L Normal 133-145 [facility] Comment on above: Order Comment: Order Date: 06/13/24 Order Info: [id number]- - CMP Order Info: [id number] - LIPID Performed By: #### L 500.4050, L501.9985, L500.4100, L100.0100 #### [facility] [address] [place], [address] T PROT 6.6 g/dL Normal 5.9-8.4 [facility] Comment on above: Order Comment: Order Date: 06/13/24 Order Info: 0786- - CMP Order Info: [id number] - LIPID Performed By: #### L 500.4050, L501.9985, L500.4100, L100.0100 #### [facility] [address] [place], [address] Urea nitrogen [Mass/Vol] 24 mg/dL High 4-19 [facility] Comment on above: Order Comment: Order Date: 06/13/24 Order Info: 0786- - CMP Order Info: [id number] - LIPID Performed By: #### L 500.4050, L501.9985, L500.4100, L100.0100 #### [facility] [address] [place], [address] Eosinophil percentageOrdered By: Evert Chatman on 06-27-2024 Eosinophils/100 WBC (Bld) 3.0 % 0-5 [facility] Erythrocyte distribution wid th ratioOrdered By: Evert Chatman on 06-27-2024 Erythrocyte distribution width (RBC) [Ratio] 13.1 % 11.6-14.6 [facility] Erythrocyte distribution wid th standard deviationOrdered By: Evert Chatman on 06-27-2024 Erythrocyte distribution width (RBC) [Ratio] 43.7 fl 35.1-43.9 [facility] Glomerular filtration rate ( GFR) estimation/1.73 sq m using serum, plasma, or whole bOrdered By: Evert Chatman on 06-27-2024 GFR/1.73 sq M.predicted among non-blacks MDRD (S/P/Bld) [Vol rate/Area] 78 mL/min/{1.73_m2} >60 [facility] Comment on above: mL/min/1.73m2 CKD-EP I Creatinine Equation (2020) Hematocrit Auto (Bld) [Volum e fraction]Ordered By: Evert Chatman on 06-27-2024 Hematocrit (Bld) [Volume fraction] 42.2 % 40-54 [facility] Hemoglobin A1con 06-27-2024 HbA1c (Bld) [Mass fraction] 5.9 % High <=5.6 [facility] Comment on above: Order Comment: Order Date: 06/13/24 Order Info: [id number] - A1C Result Comment: Norm al < 5.7 % Prediabetic 5.7 - 6.4 % Diabetic >or= 6.5 % Please note range changes. Performed By: #### L 500.4050, L501.9985, L500.4100, L100.0100 #### [facility] [address] [place], [place], [id number] Hemoglobin A1c percentageOrd ered By: Evert Chatman on 06-27-2024 HbA1c (Bld) [Mass fraction] 5.9 % High <5.7 [facility] Comment on above: Normal < 5.7 % Predi abetic 5.7 - 6.4 % Diabetic >or= 6.5 % Please note range changes. Hemoglobin measurementOrdere d By: Evert Chatman on 06-27-2024 Hemoglobin (Bld) [Mass/Vol] 14.1 g/dL 13.0-16.5 [facility] Immature granulocytes/100 WB C Auto (Bld)Ordered By: Evert Chatman on 06-27-2024 Immature granulocytes/100 WBC (Bld) 0.300 % 0.0-0.9 [facility] Comment on above: IG% - Immature Granu locytes (promyelocytes, myelocytes and metamyelocytes) > 1% indicates that a LEFT SHIFT is Present. LDL calc ser/plasOrdered By: Evert Chatman on 06-27-2024 Cholesterol in LDL [Mass/Vol] 43 mg/dL [facility] Comment on above: Qrktbnqxqw=002-543 m g/dL & Higher Xshj=270 mg/dL or greater Laboratory - Chemistry and C hemistry - challengeOrdered By: Evert Chatman on 06-27-2024 AST [Catalytic activity/Vol] 26 U/L <38 [facility] Lipid Profileon 06-27-2024 CHOL:HDL 1.83 Normal [facility] Comment on above: Order Comment: Order Date: 06/13/24 Order Info: [id number] - CMP Order Info: [id number] - LIPID Performed By: #### L 500.4050, L501.9985, L500.4100, L100.0100 #### [facility] [address] [facility] [place], [place], [id number] Cholesterol [Mass/Vol] 124 mg/dL Normal <=200 [facility] Comment on above: Order Comment: Order Date: 06/13/24 Order Info: [id number] - CMP Order Info: [id number] - LIPID Result Comment: Chol esterol level, Desirable <200 mg/dL Borderline high cholesterol 200-239 mg/dL High cholesterol >=240 mg/dL Recommendations of the NCEP Adult Treatment Panel for the following risk-cutoff thresholds for the [place] population. Performed By: #### L 500.4050, L501.9985, L500.4100, L100.0100 #### [facility] [address] [place], [address] Cholesterol in HDL [Mass/Vol] 68 mg/dL Normal [facility] Comment on above: Order Comment: Order Date: 06/13/24 Order Info: [id number] - CMP Order Info: [id number] - LIPID Result Comment: [place] onal Cholesterol Education Program (NCEP) guidelines: <40 mg/dL: Low HDL-cholesterol (major risk factor for CHD) >= 60 mg/dL: High HDL-cholesterol (negative risk factor for CHD) HDL-cholesterol is affected by a number of factors, e.g. smoking, exercise, hormones, sex and age. Performed By: #### L 500.4050, L501.9985, L500.4100, L100.0100 #### [facility] [address] [place], [address] Cholesterol in LDL [Mass/Vol] 43 mg/dL Normal [facility] Comment on above: Order Comment: Order Date: 06/13/24 Order Info: [id number] - CMP Order Info: [id number] - LIPID Result Comment: Bord cxuqlx=785-273 mg/dL Higher Xrcx=705 mg/dL or greater Performed By: #### L 500.4050, L501.9985, L500.4100, L100.0100 #### [facility] [address] [place], [address] Cholesterol in VLDL [Mass/Vol] 14 mg/dL Normal 5-40 [facility] Comment on above: Order Comment: Order Date: 06/13/24 Order Info: [id number] - CMP Order Info: [id number] - LIPID Performed By: #### L 500.4050, L501.9985, L500.4100, L100.0100 #### [facility] [address] [place], [address] Triglyceride [Mass/Vol] 69 mg/dL Normal [facility] Comment on above: Order Comment: Order Date: 06/13/24 Order Info: [id number] - CMP Order Info: [id number] - LIPID Result Comment: The drugs N-Acetylcysteine and Metamizole may falsely depress this assay. Normal range: <150 mg/dL Borderline High: 150-199 mg/dL High: 200-499 mg/dL Very High: >500 mg/dL Performed By: #### L 500.4050, L501.9985, L500.4100, L100.0100 #### [facility] [address] [place], [address] MCV (mean corpuscular volume ) determinationOrdered By: Evert Chatman on 06-27-2024 MCV (RBC) [Entitic vol] 92.1 fL 80-94 [facility] Mean corpuscular hemoglobin (MCH) determinationOrdered By: Evert Chatman on 06-27-2024 MCH (RBC) [Entitic mass] 30.8 pg 27.0-32.0 [facility] Mean corpuscular hemoglobin concentration (MCHC) determinationOrdered By: Evert Chatman on 06-27-2024 MCHC (RBC) [Mass/Vol] 33.4 g/dL 32-36 [facility] Mean platelet volume determi nationOrdered By: Evert Chatman on 06-27-2024 Platelet mean volume (Bld) [Entitic vol] 9.2 fL 6.2-12.0 [facility] Microalb:Creat Ratio,Random URon 06-27-2024 Creatinine [Mass/Vol] 155.00 mg/dL Normal 39.00-259.00 [facility] Comment on above: Performed By: #### L 502.0250 #### [facility] [address] [place], [address] MALB:CREAT UNABLE TO CALCULATE Normal [facility] Comment on above: Performed By: #### L 502.0250 #### [facility] [address] [place], [address] MICROALBUMIN,UR < 12.0 Normal NO RANGE EST. [facility] Comment on above: Performed By: #### L 502.0250 #### [facility] [address] [place], [address] Microalbumin/creat ratio urO rdered By: Evert Chatman on 06-27-2024 Urine microalbumin/creatinine ratio measurement UNABLE TO CALCULATE mg/g CRE [facility] Monocyte percentageOrdered B y: Evert Chatman on 06-27-2024 Monocytes/100 WBC (Bld) 10.4 % High 0-10 [facility] Neutrophil percentageOrdered By: Evert Chatman on 06-27-2024 Neutrophils/100 WBC (Bld) 58.8 % 47-70 [facility] Nucleated red blood cell per centageOrdered By: Evert Chatman on 06-27-2024 Nucleated RBC/100 WBC (Bld) [Ratio] 0 % 0-5 [facility] Platelet countOrdered By: Rai Chatman on 06-27-2024 Platelets (Bld) [#/Vol] 248 10*3/uL 150-450 [facility] Potassium measurement (mass/ volume)Ordered By: Evert Chatman on 06-27-2024 Potassium (Unsp spec) [Mass/Vol] 4.1 mmol/L 3.3-5.1 [facility] RBC Auto (Bld) [#/Vol]Ordere d By: Evert Chatman on 06-27-2024 RBC (Bld) [#/Vol] 4.58 10*6/uL Low 4.6-6.2 [facility] Random urine creatinine momo urement (mass/volume)Ordered By: Evert Chatman on 06-27-2024 Creatinine Unsp time (U) [Mass/Vol] 155.00 mg/dL 39.00-259.00 [facility] Screening total cholesterol/ high density lipoprotein (HDL) cholesterol ratioOrdered By: Evert Chatman on 06-27-2024 Cholesterol.total/Choles terol in HDL [Mass ratio] 1.83 {ratio} [facility] Serum creatinine measurement (mass/volume)Ordered By: Evert Chatman on 06-27-2024 Creatinine [Mass/Vol] 1.06 mg/dL 0.70-1.20 [facility] Serum globulin measurementOr dered By: Evert Chatman on 06-27-2024 Globulin (S) [Mass/Vol] 2.3 g/dL 2.2-4.2 [facility] Serum glucose measurement (m ass/volume)Ordered By: Evert Chatman on 06-27-2024 Glucose [Mass/Vol] 109 mg/dL High 70-99 [facility] Serum or plasma alanine king otransferase (ALT) measurementOrdered By: Evert Chatman on 06-27-2024 ALT [Catalytic activity/Vol] 20 U/L <47 [facility] Serum or plasma albumin momo urement (mass/volume)Ordered By: Evert Chatman on 06-27-2024 Albumin [Mass/Vol] 4.3 g/dL 3.4-4.8 [facility] Serum or plasma albumin/glob ulin mass ratioOrdered By: Evert Chatman on 06-27-2024 Albumin/Globulin [Mass ratio] 1.8 {ratio} 0.9-2.4 [facility] Serum or plasma alkaline mp sphatase measurementOrdered By: Evert Chatman on 06-27-2024 ALP [Catalytic activity/Vol] 55 U/L 40-129 [facility] Serum or plasma calcium momo urement (mass/volume)Ordered By: Evert Chatman on 06-27-2024 Calcium [Mass/Vol] 9.1 mg/dL 7.6-11.0 [facility] Serum or plasma cholesterol in HDL measurement (mass/volume)Ordered By: Evert Chatman on 06-27-2024 Cholesterol in HDL [Mass/Vol] 68 mg/dL >40 [facility] Comment on above: National Cholesterol Education Program (NCEP) guidelines:<40 mg/dL: Low HDL-cholesterol (major risk factor for CHD)>= 60 mg/dL: High HDL-cholesterol (negative risk factor for CHD)HDL-cholesterol is affected by a number of factors, e.g. smoking, exercise, hormones, sex and age. Serum or plasma cholesterol measurement (mass/volume)Ordered By: Evert Chatman on 06-27-2024 Cholesterol [Mass/Vol] 124 mg/dL <201 [facility] Comment on above: Cholesterol level, D esirable <200 mg/dLBorderline high cholesterol 200-239 mg/dLHigh cholesterol >=240 mg/dLRecommendations of the NCEP Adult Treatment Panel for the following risk-cutoff thresholds for the [place] population. Serum or plasma urea nitroge n measurement (mass/volume)Ordered By: Evert Chatman on 06-27-2024 Urea nitrogen [Mass/Vol] 24 mg/dL High 4-19 [facility] Sodium levelOrdered By: Evert Chatman on 06-27-2024 Sodium [Moles/Vol] 139 mmol/L 133-145 [facility] Total proteinOrdered By: Patricia Chatman on 06-27-2024 Protein [Mass/Vol] 6.6 g/dL 5.9-8.4 [facility] Triglycerides measurementOrd ered By: Evert Chatman on 06-27-2024 Triglyceride [Mass/Vol] 69 mg/dL <199 [facility] Comment on above: The drugs N-Acetylcy steine and Metamizole may falsely depress this assay. Normal range: <150 mg/dLBorderline High: 150-199 mg/dLHigh: 200-499 mg/dLVery High: >500 mg/dL Urine albumin measurement wi detection limit of 20 mg/L or less (mass/volume)Ordered By: Evert Chatman on 06-27-2024 Albumin DL <= 20 mg/L (U) [Mass/Vol] < 12.0 mg/L NO RANGE EST. [facility] White blood cell (WBC) count Ordered By: Evert Chatman on 06-27-2024 WBC (Bld) [#/Vol] 4.0 10*3/uL Low 4.4-11.0 [facility] Cardiology Visit Reporton Cardiology Visit Report [facility] [facility] [place], [place] [address] OFFICE VISIT Date of Service: 05/17/24 MR#: [id number] Acct: [id number] Name: WILLIAN BOWER Rep #: [id number] : 1960 Provider: Dr. Jose Vieira MD Age/Sex: 64/M [place] [facility] [place]: Signed HPI HPI History of Present Illness Details: WILLIAN BOWER, is a 64 M who presents to the office today for follow-up of acute anterior wall myocardial infarction on 05/12/17. At that time he was brought emergently to the cardiac [facility] where he was found to have an ulcerative plaque in his proximal LAD. He underwent successful emergent angioplasty and stenting with a 3.0X 20 Promus Synergy stent. He had remaining nonobstructive disease of his left circumflex and RCA. His echocardiogram was performed which showed an intact ejection fraction of 65% with mild apical hypokinesis. He completed cardiac rehab without any difficulty. He also has a history of hypertension and hyperlipidemia. He also underwent a follow-up stress test in November 2018 exercising to 12 metabolic equivalents with no evidence of ischemia at the peak ejection fraction of 65% to 75%. He denies chest, arm, jaw, or neck discomfort. He denies palpitations. He denies bilateral lower extremity edema. He denies claudication. He denies shortness of breath with activity, shortness of breath at rest, orthopnea, or PND. He denies chronic cough. He denies significant, sudden weight gain. He denies lightheadedness, dizziness, near-syncope, or syncope. He denies blood in urine, blood in stool, or epistaxis. He denies fever or chills. He denies myalgia. He denies fatigue. His exercise level has remained stable via walking and calisthenics. Intake Vital Signs 03/31/23 15:52 01/24/24 10:19 05/17/24 14:57 Height 5 ft 10 in 5 ft 10 in 5 ft 10 in Weight: 195 lb BMI 27.9 BP 126/73 H Blood Pressure Location Lt brachial Position Sitting Respiration 16 Pulse 68 Pulse Source Monitor Intake Visit Reasons: 1 Y FU Audiometric Technician Required: No Accompanied by: Self Is patient in pain?: No Allergies No Known Allergies Allergy (Verified 05/17/24 14:59) Medications ???Medication ???Instructions ???Recorded ???Confirmed ???Type aspirin 81 mg tablet,delayed 81 mg PO DAILY@0800 #90 tabs 11/2205/17/24 Rx release pioglitazone 15 mg tablet 15 mg PO QDAY 01/24/24 05/17/24 Hi story atorvastatin 40 mg tablet 40 mg PO QHS #90 tabs 05/17/24 Rx lisinopril 5 mg tablet 5 mg PO DAILY #90 tabs 05/17/24 Rx metoprolol tartrate 25 mg tablet 12.5 mg (1/2 x 25 mg) PO BID #90 0 05/17/24 05/17/24 Rx tabs Have you fallen in the past year?: No PFSH Medical History History of non-ST elevation myocardial infarction (NSTEMI) (05/13/17) Essential hypertension Atherosclerosis of coronary artery of [place] heart without angina pectoris Ventricular arrhythmia Obesity (BMI 30.0-34.9) ACS (acute coronary syndrome) HLD (hyperlipidemia) Surgical History H/O left inguinal hernia repair History of appendectomy History of coronary artery stent placement (05/13/17) Family History Father CAD (coronary artery disease) Hx CABG Diabetes Mother High cholesterol Social History Smoking Status: Never smoker alcohol intake: current alcohol intake frequency: a few times a week Alcohol type: beer substance use type: does not use caffeine: Yes Type: coffee what type of physical activity do you participate in: none seatbelt use: always do you feel safe at home: Yes ROS Const Const: Negative for fatigue, weakness, headache(s), daytime sleepiness or difficulty sleeping ENT ENT: Negative for headache(s), dizziness or Nosebleed/epistaxis Cardio Chest Pain: No Palpitations: No Edema: None Resp Respiratory: Negative for SOB with activity, SOB at rest, SOB orthopnea SOB lying down or Cough GI GI: Negative nausea, vomiting or heartburn Neuro Neuro: Negative for dizziness, lightheadedness, near syncope, headache(s) or weakness Endo Endo: Negative for fatigue Cardiology Exam Const Appearance: cooperative, healthy appearing, comfortable and no acute distress Nutritional Appearance: well nourished and obese Orientation: alert, awake and oriented x3 Head Head: normal to inspection Ears: hearing grossly normal bilaterally Nose: external nose normal Face and Sinus: face symmetric Mouth: moist mucous membranes Eyes General: appearance normal, both eyes and all related structures Eyelids: eyelids normal EOM: EOM intact bilaterally Neck Neck: nor (more content not included)... Normal [facility]gent Care Visit Reporton 1 1-24-2024 Urgent Care Visit Report [facility] [address], [address] [place] [address] OFFICE VISIT Date of Service: 01/24/24 MR#: [id number] Acct: [id number] Name: WILLIAN BOWER Rep #: [id number] : 1960 Provider: INDERJIT marin Age/Sex: 64/M Location: [facility] [place] Status: Signed Intake Vital Signs 03/31/23 15:52 01/24/24 10:19 Height 5 ft 10 in 5 ft 10 in Intake Visit Reasons: SORE THROAT Chief Complaint: sore throat Allergies No Known Allergies Allergy (Verified 01/24/24 11:43) Medications ???Medication ???Instructions ???Recorded ???Confirmed ???Type aspirin 81 mg tablet,delayed 81 mg PO DAILY@0800 #90 tabs 11/22/18 01/24/24 Rx release atorvastatin 80 mg tablet 80 mg PO QHS #90 tabs 08/14/23 01/24/24 Rx lisinopril 5 mg tablet 5 mg PO DAILY #90 tabs 08/14/23 01/24/24 Rx metoprolol tartrate 25 mg tablet 12.5 mg (1/2 x 25 mg) PO BID #90 08/14/23 01/24/24 Rx tabs amoxicillin 875 mg-potassium 1 tab PO BID 7 days #14 tabs 01/24/24 01/24/24 Rx clavulanate 125 mg tablet clopidogrel 75 mg tablet (Plavix) 37.5 mg PO QDAY 01/24/24 01/24/24 History pioglitazone 15 mg tablet 15 mg PO QDAY 01/24/24 01/24/24 History Have you fallen in the past year?: No PFSH Medical History ACS (acute coronary syndrome) Atherosclerosis of coronary artery of [place] heart without angina pectoris Essential hypertension History of non-ST elevation myocardial infarction (NSTEMI) (05/13/17) HLD (hyperlipidemia) Obesity (BMI 30.0-34.9) Ventricular arrhythmia Surgical History H/O left inguinal hernia repair History of appendectomy History of coronary artery stent placement (05/13/17) Family History Father CAD (coronary artery disease) Hx CABG Diabetes Mother High cholesterol Social History Smoking Status: Never smoker alcohol intake: current alcohol intake frequency: a few times a week Alcohol type: beer substance use type: does not use caffeine: Yes Type: coffee what type of physical activity do you participate in: none seatbelt use: always do you feel safe at home: Yes HPI HPI Chief Complaint: sore throat Details: WILLIAN BOWER, is a 64 M who presents to the office today for sore throat that has been going on for 3 days. Patient has a slight cough with it. Patient got OTC Cepacol last night and took one dose. He feels this to be worse overnight and in the morning. This improves during the day. He denies known sick contacts. He has received Flu vaccination and previous COVID-19 vaccination. ROS Const Constitutional: No body ache, chills, fatigue, fever(s), headache(s) or change in appetite Eyes Eyes: No blurry vision, change in vision, double vision, irritation, discharge, vision loss, dry eyes, bulging eyes, floaters, visual disturbances, eye pain, Light sensitivity, spots in vision, tunnel vision or other ENT ENT: Positive for ear or mastoid pain (L>R) and sore throat; No ear discharge, ear pressure, tinnitus, dizziness/vertigo, nosebleed/epistaxis, nasal congestion, nose pain, sinus pressure, sinus pain, nasal discharge, post nasal drip, headache(s), facial pain, dental pain, difficulty swallowing, bad breath, hoarseness, lip swelling, mouth lesions, mouth pain, neck pain, tongue swelling or throat swelling Resp Respiratory: Positive for cough; No change in phlegm color, chest congestion, hemoptysis, pain on inspiration, shortness of breath, pain with cough, stridor or wheezing Cardio Cardiology: No chest pain at rest, chest pain with exertion, shortness of breath, dyspnea on exertion or lightheadedness Gastro GI: No abdominal pain, change in bowel habits or difficulty swallowing Genitourinary Male: No burning urination or urinary frequency Musc Musculoskeletal: No joint pain or neck pain Skin Skin: No rash Neuro Neurology: No headache(s) or visual disturbances Psych Psychiatric: No change in appetite Endo Endocrine: No fatigue Aller/Imm Allergy/Immunologic: No lip swelling, throat swelling, tongue swelling or wheezing Exam Const General: cooperative, healthy appearing, comfortable and no acute distress Orientation: alert, awake and oriented x3 HENMT Head: normal to inspection and normocephalic Ears: hearing grossly normal bilaterally, external ears normal and TM's normal bilaterally Nose: external nose normal, nares normal and no nasal discharge Face and sinus: normal facial exam and sinuses nontender Mouth: oral mucosae normal, lip normal, tongue normal, oropharynx normal and moist mucous membranes Throat: uvula midline, abnormal tonsil bilaterally erythema, posterior randy (more content not included)... Normal [facility] Basic Metabolic Profile (BMP )on 12-21-2023 BUN/CRE 20.6 RATIO High 12-19 [facility] Comment on above: Order Comment: BMP G OSE TO Performed By: #### L 500.4100, L500.2500, L500.3400 ####[facility] [address] [place], [address] CA,Total 9.4 mg/dL Normal 8.5-10.1 [facility] Comment on above: Order Comment: BMP G OSE TO Performed By: #### L 500.4100, L500.2500, L500.3400 ####[facility] [address] [place], [address] Chloride [Moles/Vol] 107 mmol/L Normal 98-107 [facility] Comment on above: Order Comment: BMP G OSE TO Performed By: #### L 500.4100, L500.2500, L500.3400 ####[facility] [address] [place], [address] CO2 [Moles/Vol] 26.0 mmol/L Normal 21.0-32.0 [facility] Comment on above: Order Comment: KAYLEE G OSE TO Performed By: #### L 500.4100, L500.2500, L500.3400 ####[facility] [address] [place], [address] Creatinine [Mass/Vol] 1.02 mg/dL Normal 0.70-1.30 [facility] Comment on above: Order Comment: KAYLEE G OSE TO Result Comment: The validity of the calculated GFR GFRAA in patients over 70 years has not been determined. Clinical correlation is essential. Performed By: #### L 500.4100, L500.2500, L500.3400 ####[facility] [address] [place], [address] EST GFR - AA 94 mL/min Normal >60 [facility] Comment on above: Order Comment: KAYLEE G OSE TO Result Comment: Afri can [place] GFR Calc Performed By: #### L 500.4100, L500.2500, L500.3400 ####[facility] [address] [place], [address] GAP 6 Normal 5-15 [facility] Comment on above: Order Comment: KAYLEE G OSE TO Performed By: #### L 500.4100, L500.2500, L500.3400 ####[facility] [address] [place], [address] GFR/1.73 sq M.predicted among non-blacks MDRD (S/P/Bld) [Vol rate/Area] 78 mL/min/{1.73_m2} Normal >60 [facility] Comment on above: Order Comment: KAYLEE G OSE TO Result Comment: Non- GFR Calc Performed By: #### L 500.4100, L500.2500, L500.3400 ####[facility] [address] [place], [address] Glucose [Mass/Vol] 109 mg/dL High 74-106 [facility] Comment on above: Order Comment: BMP G OSE TO Result Comment: Fast ing Glucose result from 100 to 125 mg/dL suggests IMPAIRED HOMEOSTASIS per A.D.A. criteria. Performed By: #### L 500.4100, L500.2500, L500.3400 ####[facility] [address] [place], [address] Potassium [Moles/Vol] 4.4 mmol/L Normal 3.5-5.1 [facility] Comment on above: Order Comment: BMP G OSE TO Performed By: #### L 500.4100, L500.2500, L500.3400 ####[facility] [address] [place], [address] Sodium [Moles/Vol] 139 mmol/L Normal 136-145 [facility] Comment on above: Order Comment: BMP G OSE TO Performed By: #### L 500.4100, L500.2500, L500.3400 ####[facility] [address] [place], [address] Urea nitrogen [Mass/Vol] 21 mg/dL High 7-18 [facility] Comment on above: Order Comment: BMP G OSE TO Performed By: #### L 500.4100, L500.2500, L500.3400 ####[facility] [address] [place], [address] CBC W/Diff, Automatedon 10-2 Absolute Lymph 1.12 X10 3/uL Normal 0.83-4.51 [facility] Comment on above: Performed By: #### L 501.9985, L100.0100, L501.9910 #### [facility] [address] [place], [address] Absolute Neut 2.5 X10 3/uL Normal 2.0-7.7 [facility] Comment on above: Performed By: #### L 501.9985, L100.0100, L501.9910 #### [facility] [address] [place], [address] Basophils/100 WBC (Bld) 0.7 % Normal 0-1 [facility] Comment on above: Performed By: #### L 501.9985, L100.0100, L501.9910 #### [facility] [address] [place], [address] Eosinophils/100 WBC (Bld) 1.9 % Normal 0-5 [facility] Comment on above: Performed By: #### L 501.9985, L100.0100, L501.9910 #### [facility] [address] [place], [address] Erythrocyte distribution width (RBC) [Ratio] 13.7 % Normal 11.6-14.6 [facility] Comment on above: Performed By: #### L 501.9985, L100.0100, L501.9910 #### [facility] [address] [place], [address] Hematocrit (Bld) [Volume fraction] 43.4 % Normal 40-54 [facility] Comment on above: Performed By: #### L 501.9985, L100.0100, L501.9910 #### [facility] [address] [place], [address] Hemoglobin (Bld) [Mass/Vol] 13.8 g/dL Normal 13.0-16.5 [facility] Comment on above: Performed By: #### L 501.9985, L100.0100, L501.9910 #### [facility] [address] [place], [address] IG% 0.200 Normal 0.0-0.9 [facility] Comment on above: Result Comment: IG% - Immature Granulocytes (promyelocytes, myelocytes and metamyelocytes) > 1% indicates that a LEFT SHIFT is Present. Performed By: #### L 501.9985, L100.0100, L501.9910 #### [facility] [address] [place], [address] Lymphocytes/100 WBC (Bld) 27.1 % Normal 19-41 [facility] Comment on above: Performed By: #### L 501.9985, L100.0100, L501.9910 #### [facility] [address] [place], [address] MCH (RBC) [Entitic mass] 27.7 pg Normal 27.0-32.0 [facility] Comment on above: Performed By: #### L 501.9985, L100.0100, L501.9910 #### [facility] [address] [place], [address] MCHC (RBC) [Mass/Vol] 31.8 g/dL Low 32-36 [facility] Comment on above: Performed By: #### L 501.9985, L100.0100, L501.9910 #### [facility] [address] [place], [address] MCV (RBC) [Entitic vol] 87.1 fL Normal 80-94 [facility] Comment on above: Performed By: #### L 501.9985, L100.0100, L501.9910 #### [facility] [address] [place], [address] Monocytes/100 WBC (Bld) 9.7 % Normal 0-10 [facility] Comment on above: Performed By: #### L 501.9985, L100.0100, L501.9910 #### [facility] [address] [place], [address] Neutrophils/100 WBC (Bld) 60.4 % Normal 47-70 [facility] Comment on above: Performed By: #### L 501.9985, L100.0100, L501.9910 #### [facility] [address] [place], [address] Nucleated RBC (Bld) [#/Vol] 0 10*3/uL Normal 0-5 [facility] Comment on above: Performed By: #### L 501.9985, L100.0100, L501.9910 #### [facility] [address] [place], [address] Platelet mean volume (Bld) [Entitic vol] 8.9 fL Normal 6.2-12.0 [facility] Comment on above: Performed By: #### L 501.9985, L100.0100, L501.9910 #### [facility] [address] [place], [address] Platelets (Bld) [#/Vol] 247 10*3/uL Normal 150-450 [facility] Comment on above: Performed By: #### L 501.9985, L100.0100, L501.9910 #### [facility] [address] [place], [address] RBC (Bld) [#/Vol] 4.98 10*6/uL Normal 4.6-6.2 [facility] Comment on above: Performed By: #### L 501.9985, L100.0100, L501.9910 #### [facility] [address] [place], [address] RDW SD 43.7 fl Normal 35.1-43.9 [facility] Comment on above: Performed By: #### L 501.9985, L100.0100, L501.9910 #### [facility] [address] [place], [address] WBC (Bld) [#/Vol] 4.1 10*3/uL Low 4.4-11.0 [facility] Comment on above: Performed By: #### L 501.9985, L100.0100, L501.9910 #### [facility] [address] [place], [address] Hemoglobin A1con 12-21-2023 HbA1c (Bld) [Mass fraction] 6.2 % High 3.8-5.6 [facility] Comment on above: Result Comment: Norm al < 5.7 % Prediabetic 5.7 - 6.4 % Diabetic >or= 6.5 % Please note range changes. Performed By: #### L 501.9985, L100.0100, L501.9910 ####[facility] [address] [place], [address] Lipid Profileon 12-21-2023 Cholesterol [Mass/Vol] 107 mg/dL Normal 200 [facility] Comment on above: Order Comment: BMP G OSE TO Result Comment: <200 mg/dL Desirable 200-240 mg/dL Borderline >240 mg/dL High Risk Performed By: #### L 500.4100, L500.2500, L500.3400 ####[facility] [address] [place], [address] Cholesterol in HDL [Mass/Vol] 75 mg/dL Normal [facility] Comment on above: Order Comment: BMP G OSE TO Result Comment: The drugs N-Acetylcysteine and Metamizole may falsely depress this assay. Reference Range HDL <40 mg/dL Low HDL Cholesterol HDL >or= 60 mg/dL High HDL Cholesterol Performed By: #### L 500.4100, L500.2500, L500.3400 ####[facility] [address] [place], [address] Cholesterol in LDL [Mass/Vol] 22 mg/dL Normal 0-130 [facility] Comment on above: Order Comment: BMP G OSE TO Performed By: #### L 500.4100, L500.2500, L500.3400 ####[facility] [address] [place], [address] Cholesterol in VLDL [Mass/Vol] 10 mg/dL Normal 5-40 [facility] Comment on above: Order Comment: BMP G OSE TO Performed By: #### L 500.4100, L500.2500, L500.3400 ####[facility] [address] [place], [address] Triglyceride [Mass/Vol] 51 mg/dL Normal [facility] Comment on above: Order Comment: BMP G OSE TO Result Comment: The drugs N-Acetylcysteine and Metamizole may falsely depress this assay. Serum Triglycerides Reference Interval Normal <150 mg/dL Borderline high 150 - 199 mg/dL High 200 - 499 mg/dL Very High > or = 500 mg/dL Performed By: #### L 500.4100, L500.2500, L500.3400 ####[facility] [address] [place], [address] Liver Profileon 12-21-2023 Albumin [Mass/Vol] 3.9 g/dL Normal 3.2-5.0 [facility] Comment on above: Order Comment: BMP G OSE TO Performed By: #### L 500.4100, L500.2500, L500.3400 ####[facility] [address] [place], [address] ALK P 68 U/L Normal 45-117 [facility] Comment on above: Order Comment: BMP G OSE TO Performed By: #### L 500.4100, L500.2500, L500.3400 ####[facility] [address] [place], [address] ALT [Catalytic activity/Vol] 27 U/L Normal 16-61 [facility] Comment on above: Order Comment: BMP G OSE TO Performed By: #### L 500.4100, L500.2500, L500.3400 ####[facility] [address] [place], [address] AST [Catalytic activity/Vol] 23 U/L Normal 15-37 [facility] Comment on above: Order Comment: BMP G OSE TO Performed By: #### L 500.4100, L500.2500, L500.3400 ####[facility] [address] [place], [address] Bilirubin [Mass/Vol] 1.60 mg/dL High 0.20-1.00 [facility] Comment on above: Order Comment: BMP G OSE TO Result Comment: For patients on eltrombopag therapy, use of Dimension [place] TBIL is not recommended. Performed By: #### L 500.4100, L500.2500, L500.3400 ####[facility] [address] [place], [address] Bilirubin.direct [Mass/Vol] 0.40 mg/dL High 0.00-0.30 [facility] Comment on above: Order Comment: BMP G OSE TO Performed By: #### L 500.4100, L500.2500, L500.3400 ####[facility] [address] [place], [address] Globulin (S) [Mass/Vol] 3.0 g/dL Normal 2.2-4.2 [facility] Comment on above: Order Comment: BMP G OSE TO Performed By: #### L 500.4100, L500.2500, L500.3400 ####[facility] [address] [place], [address] T PROT 6.9 g/dL Normal 6.4-8.2 [facility] Comment on above: Order Comment: BMP G OSE TO Performed By: #### L 500.4100, L500.2500, L500.3400 ####[facility] [address] [place], [address] PSA,Total - Annual Screenon 12-21-2023 PSA,TOT SCREEN 0.76 ng/mL Normal 0.00-4.00 [facility] Comment on above: Result Comment: This test was performed using the TPSA assay method for the [employer] chemistry system. Values obtained with different assay methods cannot be used interchangably. When changing PSA assays in the course of monitoring a patient, additional sequential testing should be carried out to confirm baseline values. Performed By: #### L 501.9985, L100.0100, L501.9910 #### [facility] [address] [place], [address] Basophil percentageOrdered B y: Rima Yung on 03-26-2023 Bilirubin [Mass/Vol] 2.20 mg/dL 0.20-1.00 [facility] Comment on above: For patients on eltr ombopag therapy, use of Dimension [place] TBIL is not recommended. Cholesterol [Mass/Vol] 112 mg/dL <200 [facility] Comment on above: <200 mg/dL Desirable 200-240 mg/dL Borderline >240 mg/dL High Risk Protein [Mass/Vol] 7.1 g/dL 6.4-8.2 [facility] Triglyceride [Mass/Vol] 65 mg/dL <199 [facility] Comment on above: The drugs N-Acetylcy steine and Metamizole may falsely depress this assay.Serum Triglycerides Reference Interval Normal <150 mg/dL Borderline high 150 - 199 mg/dL High 200 - 499 mg/dL Very High > or = 500 mg/dL Direct bilirubinOrdered By: Rima Yung on 03-26-2023 Bilirubin.direct [Mass/Vol] 0.29 mg/dL 0.00-0.30 [facility] High density lipoprotein (HD L) measurementOrdered By: Rima Yung on 03-26-2023 Cholesterol in HDL (Body fld) [Mass/Vol] 75 mg/dL >40 [facility] Comment on above: The drugs N-Acetylcy steine and Metamizole may falsely depress this assay. Reference Range HDL <40 mg/dL Low HDL Cholesterol HDL >or= 60 mg/dL High HDL Cholesterol Laboratory - Chemistry and C hemistry - challengeOrdered By: Rima Yung on 03-26-2023 ALP [Catalytic activity/Vol] 67 U/L 45-117 [facility] ALT [Catalytic activity/Vol] 36 U/L 16-61 [facility] Globulin (S) [Mass/Vol] 3.1 g/dL 2.2-4.2 [facility] Low density lipoprotein (LDL ) cholesterol measurementOrdered By: Rima Yung on 03-26-2023 Cholesterol in LDL (Body fld) [Moles/Vol] 24 mg/dL 0-130 [facility] Thin prep Papanicolaou smear with manual screeningOrdered By: Rima Yung on 03-26-2023 Thin prep Papanicolaou smear with manual screening 4.0 g/dL 3.2-5.0 [facility] Thin prep Papanicolaou smear with manual screening 20 U/L 15-37 [facility] Very low density lipoprotein (VLDL) cholesterol measurementOrdered By: Rima Yung on 03-26-2023 Cholesterol in VLDL Calc [Moles/Vol] 13 mg/dL 5-40 [facility] Basophil percentageon 2021 Bilirubin [Mass/Vol] 2.30 mg/dL 0.20-1.00 [facility] Work Phone: Comment on above: For patients on eltr ombopag therapy, use of Dimension [place] TBIL is not recommended. Cholesterol [Mass/Vol] 118 mg/dL <200 [facility] Work Phone: Comment on above: <200 mg/dL Desirable 200-240 mg/dL Borderline >240 mg/dL High Risk Protein [Mass/Vol] 7.0 g/dL 6.4-8.2 [facility] Work Phone: Triglyceride [Mass/Vol] 94 mg/dL <199 [facility] Work Phone: [phone] Comment on above: The drugs N-Acetylcy steine and Metamizole may falsely depress this assay.Serum Triglycerides Reference Interval Normal <150 mg/dL Borderline high 150 - 199 mg/dL High 200 - 499 mg/dL Very High > or = 500 mg/dL Direct bilirubinon Bilirubin.direct [Mass/Vol] 0.36 mg/dL 0.00-0.30 [facility] Work Phone: Laboratory - Chemistry and C hemistry - challengeon 01-31-2022 ALP [Catalytic activity/Vol] 72 U/L 45-117 [facility] Work Phone: ALT [Catalytic activity/Vol] 45 U/L 16-61 [facility] Work Phone: Globulin (S) [Mass/Vol] 3.0 g/dL 2.2-4.2 [facility] Work Phone: Serum or plasma albumin momo urement (mass/volume)on 01-31-2022 Albumin [Mass/Vol] 4.0 g/dL 3.2-5.0 [facility] Work Phone: Serum or plasma cholesterol in HDL measurement (mass/volume)on 01-31-2022 Cholesterol in HDL [Mass/Vol] 54 mg/dL >40 [facility] Work Phone: Comment on above: The drugs N-Acetylcy steine and Metamizole may falsely depress this assay. Reference Range HDL <40 mg/dL Low HDL Cholesterol HDL >or= 60 mg/dL High HDL Cholesterol Serum or plasma cholesterol in VLDL measurement (mass/volume)on 01-31-2022 Cholesterol in VLDL [Mass/Vol] 19 mg/dL 5-40 [facility] Work Phone: Serum or plasma low density lipoprotein (LDL) cholesterol measurement (mass/volume)on 01-31-2022 Cholesterol in LDL [Mass/Vol] 45 mg/dL 0-130 [facility] Work Phone: Thin prep Papanicolaou smear with manual screeningon 01-31-2022 Thin prep Papanicolaou smear with manual screening 17 U/L 15-37 [facility] Work Phone: Basophil percentageon 2021 Bilirubin [Mass/Vol] 2.10 mg/dL 0.20-1.00 [facility] Work Phone: [phone] Comment on above: For patients on eltr ombopag therapy, use of Dimension [place] TBIL is not recommended. Cholesterol [Mass/Vol] 126 mg/dL <200 [facility] Work Phone: [phone] Comment on above: <200 mg/dL Desirable 200-240 mg/dL Borderline >240 mg/dL High Risk Protein [Mass/Vol] 7.1 g/dL 6.4-8.2 [facility] Work Phone: [phone] Triglyceride [Mass/Vol] 110 mg/dL <199 [facility] Work Phone: [phone] Comment on above: The drugs N-Acetylcy steine and Metamizole may falsely depress this assay.Serum Triglycerides Reference Interval Normal <150 mg/dL Borderline high 150 - 199 mg/dL High 200 - 499 mg/dL Very High > or = 500 mg/dL Direct bilirubinon Bilirubin.direct [Mass/Vol] 0.37 mg/dL 0.00-0.30 [facility] Work Phone: [phone] Laboratory - Chemistry and C hemistry - challengeon 08-30-2021 ALP [Catalytic activity/Vol] 69 U/L 45-117 [facility] Work Phone: [phone] ALT [Catalytic activity/Vol] 39 U/L 16-61 [facility] Work Phone: [phone] Globulin (S) [Mass/Vol] 3.1 g/dL 2.2-4.2 [facility] Work Phone: [phone] Serum or plasma albumin momo urement (mass/volume)on 08-30-2021 Albumin [Mass/Vol] 4.0 g/dL 3.2-5.0 [facility] Work Phone: [phone] Serum or plasma cholesterol in HDL measurement (mass/volume)on 08-30-2021 Cholesterol in HDL [Mass/Vol] 60 mg/dL >40 [facility] Work Phone: [phone] Comment on above: The drugs N-Acetylcy steine and Metamizole may falsely depress this assay. Reference Range HDL <40 mg/dL Low HDL Cholesterol HDL >or= 60 mg/dL High HDL Cholesterol Serum or plasma cholesterol in VLDL measurement (mass/volume)on 08-30-2021 Cholesterol in VLDL [Mass/Vol] 22 mg/dL 5-40 [facility] Work Phone: Serum or plasma low density lipoprotein (LDL) cholesterol measurement (mass/volume)on 08-30-2021 Cholesterol in LDL [Mass/Vol] 44 mg/dL 0-130 [facility] Work Phone: Thin prep Papanicolaou smear with manual screeningon 08-30-2021 Thin prep Papanicolaou smear with manual screening 23 U/L 15-37 [facility] Work Phone: Vital Signs Date Time Vital Sign Value Performing Clinician Faci lity 08-05-2024 14:15-0400 Diastolic blood pressure 75 mm[Hg] Dr. Evert Chatman MD Work Phone: [facility] 08-05-2024 14:15-0400 Heart rate 64 /min Dr. Evert Chatman MD Work Phone: [facility] 08-05-2024 14:15-0400 Respiratory rate 18 /min Dr. Evert Chatman MD Work Phone: [facility] 08-05-2024 14:15-0400 SaO2% (BldA) [Mass fraction] 96 % Dr. Evert Chatman MD Work Phone: [facility] 08-05-2024 14:15-0400 Systolic blood pressure 114 mm[Hg] Dr. Evert Chatman MD Work Phone: [facility] 05-17-2024 14:57-0400 Body height 177.[address] Evert Chatman MD Work Phone: [facility] 05-17-2024 14:57-0400 Body mass index (BMI) [Ratio] 27.9 kg/m2 Dr. Evert Chatman MD Work Phone: [facility] 05-17-2024 14:57-0400 Body weight 88.[address] Evert Chatman MD Work Phone: [facility] 05-17-2024 14:57-0400 Diastolic blood pressure 73 mm[Hg] Dr. Evert Chatman MD Work Phone: [facility] 05-17-2024 14:57-0400 Heart rate 68 /min Dr. Evert Chatman MD Work Phone: [facility] 05-17-2024 14:57-0400 Respiratory rate 16 /min Dr. Evert Chatman MD Work Phone: [facility] 05-17-2024 14:57-0400 Systolic blood pressure 126 mm[Hg] Dr. Evert Chatman MD Work Phone: [facility] 03-31-2023 15:52-0500 Body height 177.[address] Evert Chatman Work Phone: [facility] 03-31-2023 15:52-0500 Body mass index (BMI) [Ratio] 28.4 kg/m2 Dr. Evert Chatman Work Phone: [facility] 03-31-2023 15:52-0500 Body weight 89.[address] Evert Chatman Work Phone: [facility] 03-31-2023 15:52-0500 Diastolic blood pressure 74 mm[Hg] Dr. Evert Chatman Work Phone: [facility] 03-31-2023 15:52-0500 Heart rate 63 /min Dr. Evert Chatman Work Phone: [facility] 03-31-2023 15:52-0500 Respiratory rate 16 /min Dr. Evert Chatman Work Phone: [facility] 03-31-2023 15:52-0500 Systolic blood pressure 123 mm[Hg] Dr. Evert Chatman Work Phone: [facility] Encounters Encounter Date Encounter Type Care Provider Facility Start: 08-05-2024 End: 08-05-[address] Luis Walker MD -[facility] Work Phone: Start: 08-05-2024 End: 08-05-[address] Evert Chatman MD Work Phone: [facility] Work Phone: Start: 06-27-2024 End: 06-27-[address] Evert Chatman MD -[facility] Work Phone: Start: 06-27-2024 End: 06-27-2024 ambulatory Evert Chatman Facility:[facility] Start: 05-17-2024 End: 05-17-[address] Jose Vieira MD -[facility] Work Phone: Start: 05-17-2024 End: 05-17-2024 ambulatory Evert Chatman Facility:[facility] [place] Start: 01-24-2024 End: 01-24-2024 ambulatory Evert Chatman Facility:[facility] [place] Start: 12-21-2023 End: 12-21-2023 ambulatory Ken Sadaf Facility:[facility] Start: 07-02-2023 End: 07-02-[address] Evert Chatman Work Phone: [facility] Work Phone: Start: 07-02-2023 End: 07-02-[address] Evert Chatman Work Phone: [facility] Work Phone: Start: 05-07-2023 Non-patient / Non-visit Dr. Rai Chatman Work Phone: [facility] Work Phone: Start: 05-06-2023 Non-patient / Non-visit Dr. Rai Chatman Work Phone: [facility] Start: 05-06-2023 End: 05-06-[address] Evert Chatman Work Phone: [facility] Work Phone: Start: 05-06-2023 End: 05-06-[address] [facility] Work [facility]: Start: 03-31-2023 End: 03-31-[address] Evert Chatman Work Phone: [facility] [facility] Work Phone: Start: 03-26-2023 End: 03-26-2023 ambulatory [facility] Work Phone: Start: 03-26-2023 End: 03-26-2023 Patient encounter procedure [facility] Work Phone: Start: 01-31-2022 End: 01-31-2022 ambulatory [facility] Work Phone: Start: 01-31-2022 End: 01-31-2022 Patient encounter procedure [facility] Start: 08-30-2021 End: 08-30-2021 Patient encounter procedure [facility] Procedures Date Procedure Procedure Detail Performing Clinician Start: 07-02-2023 Ultrasound elastogra phy of liver Dr. Evert Chatman Work Phone: Start: 05-06-2023 Radionuclide imaging of perfusion of myocardium under exercise stress Dr. Evert Chatman Work Phone: Start: 05-13-2017 History of placement of stent for coronary artery disease History of coronary artery stent placement Dr. Jose Vieira MD Comment on above: [id number] LAD 3.0 x 20 mm Promus Synergy 05/13/17 Plan of Treatment Date Care Activity Detail Author Blood chemistry [facility] Immunizations Immunization Date Immunization Notes Care Provider Brandon minor 12-16-2016 Influenza virus vaccine [facility] Payers Date Payer Category Payer Self-pay [id number] 2023 Private Health Insurance [id number] Private Health Insurance [id number] Unknown [id number] Unknown [facility] PACKAGE PLAN [id number] Unknown [facility] PACKAGE PLAN [id number] Unknown [id number] Unknown [id number] Unknown [id number] Unknown [id number] Unknown [id number] Social History Date Type Detail Facility Start: 02-07-2021 End: 03-31-2023 Tobacco smoking status NHIS Unknown if ever smoked [facility] Start: 05-13-2017 Occasional [facility] Start: 05-13-2017 None [facility] Start: 05-13-2017 Spouse/ Signif icant Other [facility] Start: 05-13-2017 Non-smoker [facility] Start: 1960 Sex Assigned At Male [facility] Start: 01-24-2024 Tobacco smoking status NHIS Never smoked tobacco (finding) [facility] Evaluation note 05-17-2024 Note Date & Type Note Facility 05-17-2024 Evaluation note Diagnosis Onset Date Resolution Essential hypertension chronic May 17, 2024 2:55pm History of coronary artery stent placement May 13, 2017 chronic May 17, 2024 2:55pm HLD (hyperlipidemia) chronic May 17 2:55pm [facility] [employer] Work Phone: Evaluation note 05-13-2017 Note Date & Type Note Facility 05-13-2017 Evaluation note Diagnosis Onset Date Essential hypertension chron ic History of coronary artery stent placement May 13, 2017 chronic HLD (hyperlipidemia) chronic [facility] Work Phone: Evaluation note Note Date & Type Note Facility Evaluation note No assessment information availa ble [facility] Work Phone: Reason for referral (narrative) Note Date & Type Note Facility Reason for referral (narrative) No reason for referral information available [facility] Work Phone: Chief Complaint and Reason for Visit Chief Complaint EORDER/ FAXED ORDER WELL Chief Complaint EORDER Chief Complaint EORDER 1 Y FU ESSENTIAL HYPERTENSION ESSENTIAL HYPERTENSION Amb Documentation Reason for Visit Essential hypertensi on History of coronary artery stent placement HLD (hyperlipidemia) Chief Complaint EORDER 1 Y FU ESSENTIAL HYPERTENSION ESSENTIAL HYPERTENSION Amb Documentation MASLD Reason for Visit Essential hypertensi on History of coronary artery stent placement HLD (hyperlipidemia) Chief Complaint Admit Date 1 Y FU May 17, 2024 2:5 5pm EORDERS June 27, 2024 9:1 2am FINGER CYST August 05, 2024 1:34p m Reason for Visit Admit Date Essential hypertension May 17, 2024 2:55pm History of coronary artery stent placeme nt May 17, 2024 2:55pm HLD (hyperlipidemia) May 17, 2024 2: 55pm Family History No Family History Records Found Relationship Condition Age at Onset Recorded Date/T annia father Coronary artery disease Unknown Diabetes mellitus Unknown mother High blood cholesterol Unknown Advance Directives No Advanced Directives Records Found Advance Directive Response Recorded Date/ Time Living Will No May 29, 2017 1:50pm Power of Software Test Specialist No May 29 1:50pm Advance Directive Response Recorded Date/ Time Living Will No May 29, 2017 12:50pm Power of Software Test Specialist No May 29 12:50pm Advance Directive Response Recorded Date/ Time Living Will No May 29, 2017 1:50pm Do you have a Healthcare Power of Software Test Specialist? No May 29, 2017 1:50pm Summary Purpose Additional Source Comments Goals (unrecognized section and content) Goals may be documented in a n alternate sectionGoals may be documented in an alternate sectionGoals may be documented in an alternate sectionGoals may be documented in an alternate sectionGoals may be documented in an alternate sectionGoals may be documented in an alternate section Care Teams (unrecognized sec tion and content) Team Status: Active Member Role Status Dates Dr. Evert Chatman MD Family Provider Active Dr. Evert Chatman MD Primary Care Provider Active Team Status: Inactive Member Role Status Dates Dr. Evert Chatman MD Primary Care Provider Active Rima Yung PA, PA Attending Provider, Referr ing Provider Active Team Status: Inactive Member Role Status Dates Dr. Evert Chatman MD Primary Care Provider, Referring P rovider Active Ken H Sadaf DIVISION MANAGER, DIVISION MANAGER-C Attending Provider Active Team Status: Active Member Role Status Dates Dr. Evert Chatman MD Primary Care Provider Active Ken Talavera DIVISION MANAGER, DIVISION MANAGER-C Referring Provider, Other Provide r Active Dr. Jose Vieira MD Attending Provider Active Team Status: Active Member Role Status Dates Dr. Evert Chatman MD Primary Care Provider Active Ken Talavera DIVISION MANAGER, DIVISION MANAGER-C Attending Provider Active Team Status: Inactive Member Role Status Dates Dr. Evert Chatman MD Primary Care Provider Active Ken Talavera DIVISION MANAGER, DIVISION MANAGER-C Attending Provider, Referring Pro vider Active Team Status: Inactive Member Role Status Dates Dr. Evert Chatman MD Primary Care Provide r, Attending Provider, Referring Provider Active Team Status: Active Member Role Status Dates Dr. Evert Chatman MD Primary Care Provider Active Team Status: Inactive Member Role Status Dates Dr. Evert Chatman MD Primary Care Provider Active Start: May 17, 2024 End: May 17, 2024 Dr. Evert Chatman MD Referring Provider Active St art: May 17, 2024 End: May 17, 2024 Dr. Jose Vieira MD Attending Provider Active S tart: May 17, 2024 End: May 17, 2024 Team Status: Inactive Member Role Status Dates Dr. Evert Chatman MD Primary Care Provider Active Start: June 27, 2024 End: June 27, 2024 Dr. Evert Chatman MD Attending Provider Active St art: June 27, 2024 End: June 27, 2024 Dr. Evert Chatman MD Referring Provider Active St art: June 27, 2024 End: June 27, 2024 Team Status: Inactive Member Role Status Dates Dr. Evert Chatman MD Primary Care Provider Active Start: August 05, 2024 End: August 05, 2024 Dr. Evert Chatman MD Referring Provider Active St art: August 05, 2024 End: August 05, 2024 Dr. Luis Walker MD Attending Provider Active Start: August 05, 2024 End: August 05, 2024 (unrecognized sect ion and content) No Status Records Found INFORMATION SOURCE (unrecogn ized section and content) DATE CREATED AUTHOR 08/07/2024 [facility] FOR RECORDS PERTAINING TO PATIENTS WHO ARE OR HAVE BEEN ENROLLED IN A CHEMICAL DEPENDENCY/SUBSTANCEABUSE PROGRAM, SOME INFORMATION MAY BE OMITTED. This clinical summary was aggregated from multiple sources. Caution should be exercised in using it in the provision of clinical care. This summary normalizes information from multiple sources, and as a consequence, information in this document may materially change the coding, format and clinical context of patient data. In addition, data may be omitted in some cases. CLINICAL DECISIONS SHOULD BE BASED ON THE PRIMARY CLINICAL RECORDS. [employer] provides no warranty or guarantee of the accuracy or completeness of information in this document.
== END | disposition home or self-care (01) ==
LOC: RAD 13:08
PROVIDERS: PCP Family Medicine; Referring Provider Surgery Plastic and Reconstructive Surgery; Visit Provider Surgery Plastic and Reconstructive Surgery
DX: R22.30 Localized swelling, mass and lump, unspecified upper limb (principal)
CPT/HCPCS: 73140

== ENCOUNTER → 2025-01-06 | Outpatient (CLI) | payer OTHER, SELFPAY ==
[2024-01-24 10:19] VITALS: BMI 31.3
[2025-01-06 13:52] LABS: AST(SGOT) 29 U/L (<=37); Alanine Aminotransfer ALT/SGPT 31 U/L (<=46); Albumin, Serum 4.5 g/dL (3.4-4.8); Alkaline Phosphatase 61 U/L (40-129); Anion Gap 9 (5-15); BUN 15 mg/dL (4-19); BUN/Creat Ratio 14.4 RATIO (10-20); Calcium,Total 9.6 mg/dL (7.6-11.0); Carbon Dioxide 26.9 mmol/L (21.0-32.0); Chloride 100 mmol/L (98-108); Cholesterol 133 mg/dL (<=200); Globulin 2.4 g/dL (2.2-4.2); Glucose 106 mg/dL (70-99); Low Density Lipoprotein Calc. 45 mg/dL; Potassium 4.2 mmol/L (3.3-5.1); Triglycerides 125 mg/dL; Very Low Density Lipoprotein 25 mg/dL (5-40); cholesterol:hdl ratio screen 2.00
[2025-01-06 14:01] LABS: Ferritin 28 ng/mL (37-417)
== END | disposition home or self-care (01) ==
LOC: LAB 11:52
PROVIDERS: PCP Family Medicine; Referring Provider Family Medicine; Visit Provider Nurse Practitioner Family
DX: K76.0 Fatty (change of) liver, not elsewhere classified (principal); I25.10 Atherosclerotic heart disease of native coronary artery without angina pectoris; E78.5 Hyperlipidemia, unspecified
CPT/HCPCS: 36415; 80053; 80061; 82728